=== PATIENT | female | born 1945 | race African-American/Black ===

== ENCOUNTER → 2016-10-23 | Outpatient (CLI) | payer MEDICARE, MEDICAID ==
[~2016-10-23] MED LIST: ALLO300T2 PO; AMBR5TAB3 PO; ATOR80TA76 PO; CLOP75TA33 PO; FURO40TA5 PO; HYDR-4135 PO; LISI-604 PO; LOSA50TA20 PO; NIAC500T2 PO; NIFE90TA43 PO; PARO-41 PO; POTA10TA69 PO
== END | disposition home or self-care (01) ==
LOC: MAMMO 10:25
PROVIDERS: ATTEND Specialist
DX: Z12.31 Encounter for screening mammogram for malignant neoplasm of breast (principal)
CPT/HCPCS: G0202

== ENCOUNTER 2016-11-14 22:25 | Emergency (ER) | payer MEDICARE, MEDICAID ==
[~2016-11-14] VITALS: Ht 149.9 cm; Wt 103.0 kg
[2016-11-15] MEDS ORDERED: LIDOCAINE HCL 1% 20ML VIAL (Pyxis) INJ MC ONE (01:15)
[2016-11-15] MEDS ORDERED: BACITRACIN ZINC OINT UDPKT TOP ONE (01:15)
[2016-11-15] MEDS ORDERED: TETANUS, DIPHTHERIA, PERTUSSIS VAC/PF 0.5ML (>7YR OLD) IM ONE (01:15)
[2016-11-15 03:32] VITALS: BP 150/81
== END 2016-11-15 04:12 | disposition home or self-care (01) ==
LOC: ER 22:25
DX: S01.01XA Laceration without foreign body of scalp, initial encounter (principal); S00.93XA Contusion of unspecified part of head, initial encounter; I10 Essential (primary) hypertension; J44.9 Chronic obstructive pulmonary disease, unspecified; Z95.5 Presence of coronary angioplasty implant and graft; Z98.890 Other specified postprocedural states; Z88.6 Allergy status to analgesic agent; Z79.899 Other long term (current) drug therapy; W06.XXXA Fall from bed, initial encounter; Y93.89 Activity, other specified; Y92.89 Other specified places as the place of occurrence of the external cause; Y99.8 Other external cause status
CPT/HCPCS: 12001; 70450; 90471; 90715; 99284; J3490

== ENCOUNTER → 2017-11-18 | Outpatient (CLI) | payer MEDICARE, MEDICAID ==
[~2017-11-18] MED LIST changes: +ATOR-2 PO; -ATOR80TA76 PO; +POTA10TA11 PO; -POTA10TA69 PO
== END | disposition home or self-care (01) ==
LOC: MAMMO 10:59
PROVIDERS: ATTEND Specialist
DX: Z12.31 Encounter for screening mammogram for malignant neoplasm of breast (principal)
CPT/HCPCS: 77067

== ENCOUNTER → 2018-11-11 | Outpatient (CLI) | payer MEDICARE, MEDICAID ==
[~2018-11-11] MED LIST changes: +APIX5TAB MT; +ASPI-1158 MT; +EZET10TA26 MT; +MACI10TA2 MT; +NEBI5TAB3 MT; +OLME40TA18 MT; +PARO-41 MT; +POTA20TA82 MT
== END | disposition home or self-care (01) ==
LOC: RAD 12:52
PROVIDERS: ATTEND Specialist
DX: R06.02 Shortness of breath (principal)
CPT/HCPCS: 71046

== ENCOUNTER 2018-12-08 15:45 | Inpatient (IN) | payer MEDICARE, MEDICAID ==
[~2018-12-08] VITALS: Ht 152.4 cm; Wt 96.9 kg
[~2018-12-08 15:45] MED LIST changes: -APIX5TAB MT; -ASPI-1158 MT; -EZET10TA26 MT; -MACI10TA2 MT; -NEBI5TAB3 MT; -OLME40TA18 MT; -PARO-41 MT; -POTA20TA82 MT
[2018-12-08] MEDS ORDERED: ASPIRIN 81MG TABLET PO ONE (16:45)
[2018-12-08 17:09] LABS: BASOPHILS % 0.5 % (0.0-2.0); EOSINOPHILS % 1.4 % (0.0-5.0); HEMATOCRIT. 35.2 % (36.0-48.0); HEMOGLOBIN. 11.5 g/dL (12.0-16.0); LYMPHOCYTES % 7.4 % (20.0-50.0); MEAN CORPUSCULAR HEMOGLOBIN 30.4 pg (28.0-32.0); MEAN CORPUSCULAR VOLUME 93.3 fL (81.0-99.0); MEAN PLATELET VOLUME 8.6 fl (7.4-10.4); NEUTROPHILS % 82.7 % (40.0-76.0); PLATELET 153 x1000/uL (130-400); RED BLOOD CELL COUNT 3.78 mill/uL (4.2-5.4); RED CELL DISTRIBUTION WIDTH 16.6 % (11.6-14.6)
[2018-12-08 17:13] LABS: CHLORIDE 108 mEq/L (98-107)
[2018-12-08 17:16] LABS: BG BASE EXCESS 1.7 mmol/L (-2.0-2.0); BG CARBOXYHEMOGLOBIN 0.2 % (0.5-1.5); BG DEOXYHEMOGLOBIN 5.6 % (0.0-5.0); BG HCO3 ACT 27.3 mmol/L (22.0-26.0); BG METHEMOGLOBIN 0.1 % (0.0-1.5); BG OXYGEN SATURATION 94.4 % (92.0-98.5); BG OXYHEMOGLOBIN 94.1 % (94.0-97.0); BG PCO2 46.7 mmHg (35.0-45.0); BG PH 7.384 (7.350-7.450); BG SAMPLE SITE RIGHT RADIAL; BG TOTAL HEMOGLOBIN 12.7 g/dL (12.0-18.0); BG VENT MODE NASAL CANNULA
[2018-12-08] MEDS ORDERED: FUROSEMIDE 40MG/4ML VIAL IVP ONE (22:00)
[2018-12-08] MEDS ORDERED: MAGNESIUM/ALUMINUM HYDROXIDE/SIMETHICONE 30ML UDC PO PRN (22:45)
[2018-12-08] MEDS ORDERED: LORAZEPAM 2MG/ML CPJ IV PRN (22:45)
[2018-12-08] MEDS ORDERED: GUAIFENESIN 200MG/10ML SUGAR FREE UDC PO PRN (22:45)
[2018-12-08] MEDS ORDERED: IPRATROPIUM/ALBUTEROL 0.5-3(2.5)MG/3ML NEB INH PRN (22:45)
[2018-12-08] MEDS ORDERED: DIPHENHYDRAMINE 50MG/ML VIAL IV PRN (22:45)
[2018-12-08] MEDS ORDERED: NA PHOS,M-B/NA PHOS,DI-BA ENEMA 118ML PR PRN (22:45)
[2018-12-08] MEDS ORDERED: ONDANSETRON HCL 4MG/2ML INJ IV PRN (22:45)
[2018-12-08] MEDS ORDERED: DOCUSATE SODIUM 100MG CAPSULE PO PRN (22:45)
[2018-12-08 23:33] LABS: CHLORIDE 108 mEq/L (98-107)
[2018-12-09] VITALS (7 sets, daily range): BP systolic 108–153; BP diastolic 45–63
[2018-12-09] MEDS ORDERED: POTA20TA82 MT (03:28)
[2018-12-09] MEDS ORDERED: APIX5TAB MT (03:28)
[2018-12-09] MEDS ORDERED: NEBI5TAB3 MT (03:29)
[2018-12-09] MEDS ORDERED: ASPI-1158 MT (03:29)
[2018-12-09] MEDS ORDERED: PARO-41 MT (03:30)
[2018-12-09] MEDS ORDERED: EZET10TA26 MT (03:30)
[2018-12-09] MEDS ORDERED: OLME40TA18 MT (03:31)
[2018-12-09] MEDS ORDERED: MACI10TA2 MT (03:32)
[2018-12-09 06:23] LABS: BASOPHILS % 0.5 % (0.0-2.0); EOSINOPHILS % 4.7 % (0.0-5.0); HEMATOCRIT. 33.9 % (36.0-48.0); LYMPHOCYTES % 10.2 % (20.0-50.0); MEAN CORPUSCULAR HEMOGLOBIN 30.6 pg (28.0-32.0); MONOCYTES % 11.7 % (2.0-8.0); NEUTROPHILS % 72.9 % (40.0-76.0); PLATELET 143 x1000/uL (130-400); RED BLOOD CELL COUNT 3.61 mill/uL (4.2-5.4); RED CELL DISTRIBUTION WIDTH 16.4 % (11.6-14.6)
[2018-12-09 06:29] LABS: CHLORIDE 111 mEq/L (98-107)
[2018-12-09 06:41] LABS: HDL CHOLESTEROL 62 mg/dL (40-59)
[2018-12-09 06:42] LABS: LDL CHOLESTEROL 41 mg/dL (5-100)
[2018-12-09] MEDS ORDERED: ENOXAPARIN 30MG/0.3ML SYR SUBCUT SCH (09:00)
[2018-12-09] MEDS ORDERED: FUROSEMIDE 40MG/4ML VIAL IV SCH (09:00)
[2018-12-09] MEDS: ASPIRIN 81MG EC TABLET PO SCH (09:01)
[2018-12-09] MEDS: HYDRALAZINE HCL 25MG TABLET PO SCH ×2 (14:00→22:00)
[2018-12-09 16:23] LABS: INR 1.1; PROTHROMBIN TIME 11.6 sec (9.6-11.0)
[2018-12-09] MEDS: OPSUMIT 10 MG PO SCH (17:43)
[2018-12-09] MEDS: IPRATROPIUM/ALBUTEROL 0.5-3(2.5)MG/3ML NEB HHN SCH (20:28)
[2018-12-10] VITALS (13 sets, daily range): BP systolic 84–145; BP diastolic 41–74
[2018-12-10] MEDS: IPRATROPIUM/ALBUTEROL 0.5-3(2.5)MG/3ML NEB HHN SCH ×4 (01:57→21:13)
[2018-12-10] MEDS: HYDRALAZINE HCL 25MG TABLET PO SCH ×3 (06:00→22:07)
[2018-12-10 06:29] LABS: BASOPHILS % 0.4 % (0.0-2.0); EOSINOPHILS % 4.7 % (0.0-5.0); HEMATOCRIT. 36.1 % (36.0-48.0); HEMOGLOBIN. 11.6 g/dL (12.0-16.0); MEAN CORPUSCULAR VOLUME 93.3 fL (81.0-99.0); MONOCYTES % 10.1 % (2.0-8.0); NEUTROPHILS % 71.8 % (40.0-76.0); PLATELET 141 x1000/uL (130-400); RED BLOOD CELL COUNT 3.86 mill/uL (4.2-5.4)
[2018-12-10 07:17] LABS: CHLORIDE 109 mEq/L (98-107)
[2018-12-10] MEDS ORDERED: IOHEXOL-300 100 ML BOTTLE ONE (08:19)
[2018-12-10] MEDS ORDERED: PROPOFOL 10MG/ML 100ML 100 ML IV ONE (08:31)
[2018-12-10] MEDS ORDERED: FENTANYL CITRATE/PF 50MCG/ML 2ML VIAL ONE ×2 (08:32→09:12)
[2018-12-10] MEDS ORDERED: MIDAZOLAM HCL 2 MG/2 ML VIAL ONE ×2 (08:32→08:56)
[2018-12-10] MEDS ORDERED: LIDOCAINE HCL 1% 20ML VIAL (Pyxis) INJ ONE (08:40)
[2018-12-10] MEDS ORDERED: GENTAMICIN SULF 40MG/ML 2ML VIAL ONE (08:40)
[2018-12-10] MEDS ORDERED: CEFAZOLIN SODIUM 1000MG/VIAL ONE (09:00)
[2018-12-10] MEDS ORDERED: GENTAMICIN/NS IRRIGATION 500 ML IR ONE (09:27)
[2018-12-10] MEDS ORDERED: FUROSEMIDE 20MG/2ML VIAL ONE (10:23)
[2018-12-10] MEDS ORDERED: NIFEDIPINE 10MG CAPSULE ONE (10:31)
[2018-12-10] MEDS ORDERED: MEPERIDINE HCL/PF 25MG/ML CPJ IV PRN (10:45)
[2018-12-10] MEDS ORDERED: MORPHINE SULFATE 4 MG/ML CPJ (NOT FOR IM USE) IV PRN (10:45)
[2018-12-10] MEDS ORDERED: HYDROMORPHONE HCL/PF 2MG/ML CPJ IV PRN (10:45)
[2018-12-10] MEDS ORDERED: FENTANYL CITRATE/PF 50MCG/ML 2ML VIAL IV PRN (10:45)
[2018-12-10] MEDS ORDERED: ONDANSETRON HCL 4MG/2ML INJ IV PRN (10:45)
[2018-12-10] MEDS: OPSUMIT 10 MG PO SCH (13:00)
[2018-12-10] MEDS: NIFEDIPINE XL 60MG TAB PO SCH (14:47)
[2018-12-10] MEDS: CEFAZOLIN 1000MG PREMIX 50 ML IV SCH (18:30)
[2018-12-11] VITALS (14 sets, daily range): BP systolic 96–160; BP diastolic 44–87
[2018-12-11] MEDS: CEFAZOLIN 1000MG PREMIX 50 ML IV SCH (01:24)
[2018-12-11] MEDS: IPRATROPIUM/ALBUTEROL 0.5-3(2.5)MG/3ML NEB HHN SCH ×4 (01:43→20:34)
[2018-12-11 05:19] LABS: BASOPHILS % 0.3 % (0.0-2.0); EOSINOPHILS % 4.3 % (0.0-5.0); HEMOGLOBIN. 11.3 g/dL (12.0-16.0); LYMPHOCYTES % 7.9 % (20.0-50.0); MEAN CORPUSCULAR HEMOGLOBIN 30.4 pg (28.0-32.0); MEAN CORPUSCULAR VOLUME 93.8 fL (81.0-99.0); MEAN PLATELET VOLUME 8.8 fl (7.4-10.4); MONOCYTES % 11.2 % (2.0-8.0); NEUTROPHILS % 76.3 % (40.0-76.0); PLATELET 130 x1000/uL (130-400); RED BLOOD CELL COUNT 3.73 mill/uL (4.2-5.4); RED CELL DISTRIBUTION WIDTH 16.5 % (11.6-14.6)
[2018-12-11 06:31] LABS: CHLORIDE 110 mEq/L (98-107)
[2018-12-11] MEDS: HYDRALAZINE HCL 25MG TABLET PO SCH ×3 (06:39→21:34)
[2018-12-11] MEDS: NIFEDIPINE XL 60MG TAB PO SCH (08:15)
[2018-12-11] MEDS: ASPIRIN 81MG EC TABLET PO SCH (09:22)
[2018-12-11] MEDS: FUROSEMIDE 40MG/4ML VIAL IVP SCH ×2 (10:24→17:53)
[2018-12-11] MEDS: NEBIVOLOL HCL 5 MG TABLET PO SCH (10:24)
[2018-12-11] MEDS: POTASSIUM CHLORIDE 20MEQ TABLET SR PO SCH (10:24)
[2018-12-11] MEDS: APIXABAN 5 MG TABLET PO SCH ×2 (10:24→17:53)
[2018-12-11] MEDS: OPSUMIT 10 MG PO SCH (10:25)
[2018-12-11] MEDS: EZETIMIBE 10MG TABLET PO SCH (13:03)
[2018-12-11] MEDS: ATORVASTATIN CALCIUM 40MG TABLET PO SCH (21:27)
[2018-12-12] VITALS (13 sets, daily range): BP systolic 102–138; BP diastolic 46–87
[2018-12-12] MEDS: TRAMADOL 50MG TABLET PO PRN ×3 (00:10→13:33)
[2018-12-12] MEDS: IPRATROPIUM/ALBUTEROL 0.5-3(2.5)MG/3ML NEB HHN SCH ×4 (02:17→20:33)
[2018-12-12 06:34] LABS: HEMATOCRIT. 37.1 % (36.0-48.0); MEAN CORPUSCULAR HEMOGLOBIN 30.3 pg (28.0-32.0); MEAN CORPUSCULAR VOLUME 93.7 fL (81.0-99.0); MEAN PLATELET VOLUME 8.8 fl (7.4-10.4); PLATELET 129 x1000/uL (130-400); RED BLOOD CELL COUNT 3.96 mill/uL (4.2-5.4); RED CELL DISTRIBUTION WIDTH 16.5 % (11.6-14.6)
[2018-12-12] MEDS: HYDRALAZINE HCL 25MG TABLET PO SCH ×3 (06:42→21:04)
[2018-12-12 07:22] LABS: CHLORIDE 105 mEq/L (98-107)
[2018-12-12] MEDS: FUROSEMIDE 40MG/4ML VIAL IVP SCH ×2 (07:25→16:38)
[2018-12-12] MEDS: OPSUMIT 10 MG PO SCH (08:00)
[2018-12-12] MEDS: ASPIRIN 81MG EC TABLET PO SCH (08:00)
[2018-12-12] MEDS: NIFEDIPINE XL 60MG TAB PO SCH (08:00)
[2018-12-12] MEDS: NEBIVOLOL HCL 5 MG TABLET PO SCH (08:00)
[2018-12-12] MEDS: POTASSIUM CHLORIDE 20MEQ TABLET SR PO SCH (08:00)
[2018-12-12] MEDS: EZETIMIBE 10MG TABLET PO SCH (08:02)
[2018-12-12] MEDS: APIXABAN 5 MG TABLET PO SCH ×2 (08:46→16:38)
[2018-12-12 14:37] LABS: PLATELET ESTIMATE SLIGHTLY DECREASED
[2018-12-12] MEDS: ATORVASTATIN CALCIUM 40MG TABLET PO SCH (21:04)
[2018-12-13] VITALS (12 sets, daily range): BP systolic 85–122; BP diastolic 42–62
[2018-12-13] MEDS: IPRATROPIUM/ALBUTEROL 0.5-3(2.5)MG/3ML NEB HHN SCH ×4 (00:58→21:07)
[2018-12-13] MEDS: FUROSEMIDE 40MG/4ML VIAL IVP SCH ×2 (06:38→17:19)
[2018-12-13] MEDS: HYDRALAZINE HCL 25MG TABLET PO SCH ×3 (06:38→21:15)
[2018-12-13 07:06] LABS: HEMATOCRIT. 32.9 % (36.0-48.0); HEMOGLOBIN. 10.7 g/dL (12.0-16.0); MEAN CORPUSCULAR HEMOGLOBIN 30.4 pg (28.0-32.0); MEAN CORPUSCULAR VOLUME 93.1 fL (81.0-99.0); MEAN PLATELET VOLUME 8.7 fl (7.4-10.4); PLATELET 120 x1000/uL (130-400); RED BLOOD CELL COUNT 3.53 mill/uL (4.2-5.4); RED CELL DISTRIBUTION WIDTH 16.6 % (11.6-14.6)
[2018-12-13 07:43] LABS: CHLORIDE 104 mEq/L (98-107)
[2018-12-13] MEDS: OPSUMIT 10 MG PO SCH (09:44)
[2018-12-13] MEDS: POTASSIUM CHLORIDE 20MEQ TABLET SR PO SCH (09:45)
[2018-12-13] MEDS: NEBIVOLOL HCL 5 MG TABLET PO SCH (09:45)
[2018-12-13] MEDS: ASPIRIN 81MG EC TABLET PO SCH (09:45)
[2018-12-13] MEDS: APIXABAN 5 MG TABLET PO SCH ×2 (09:45→17:19)
[2018-12-13] MEDS: EZETIMIBE 10MG TABLET PO SCH (09:48)
[2018-12-13] MEDS: NIFEDIPINE XL 60MG TAB PO SCH (09:48)
[2018-12-13 15:26] LABS: PLATELET ESTIMATE SLIGHTLY DECREASED
[2018-12-13] MEDS: TRAMADOL 50MG TABLET PO PRN (21:15)
[2018-12-13] MEDS: ATORVASTATIN CALCIUM 40MG TABLET PO SCH (21:15)
[2018-12-14] VITALS (11 sets, daily range): BP systolic 88–109; BP diastolic 45–58
[2018-12-14] MEDS: IPRATROPIUM/ALBUTEROL 0.5-3(2.5)MG/3ML NEB HHN SCH ×3 (01:13→13:31)
[2018-12-14] MEDS: HYDRALAZINE HCL 25MG TABLET PO SCH ×2 (06:00→14:00)
[2018-12-14 06:29] LABS: HEMATOCRIT. 32.4 % (36.0-48.0); HEMOGLOBIN. 10.6 g/dL (12.0-16.0); MEAN CORPUSCULAR HEMOGLOBIN 30.2 pg (28.0-32.0); MEAN CORPUSCULAR VOLUME 92.5 fL (81.0-99.0); PLATELET 104 x1000/uL (130-400); RED CELL DISTRIBUTION WIDTH 16.6 % (11.6-14.6)
[2018-12-14 06:45] LABS: CHLORIDE 101 mEq/L (98-107)
[2018-12-14] MEDS: INDOMETHACIN 50MG CAPSULE PO SCH ×2 (08:00→17:13)
[2018-12-14] MEDS: FUROSEMIDE 40MG/4ML VIAL IVP SCH ×2 (08:47→17:13)
[2018-12-14] MEDS: APIXABAN 5 MG TABLET PO SCH ×2 (08:47→17:13)
[2018-12-14] MEDS: OPSUMIT 10 MG PO SCH (08:48)
[2018-12-14] MEDS: POTASSIUM CHLORIDE 20MEQ TABLET SR PO SCH (08:48)
[2018-12-14] MEDS: EZETIMIBE 10MG TABLET PO SCH (08:48)
[2018-12-14] MEDS: NIFEDIPINE XL 60MG TAB PO SCH (08:53)
[2018-12-14] MEDS: NEBIVOLOL HCL 5 MG TABLET PO SCH (08:54)
[2018-12-14] MEDS: ASPIRIN 81MG EC TABLET PO SCH (09:06)
[2018-12-14 13:38] LABS: PLATELET ESTIMATE SLIGHTLY DECREASED
== END 2018-12-14 19:30 | disposition home health service (06) | DRG 226 ==
LOC: ER 15:50 → EDBEDREQTM 22:02 → EDBEDREQ 22:02 → ENRESERV 23:18 → 5WST 12-09 01:06 → 3WST 12-10 13:00
PROVIDERS: ADMIT Internal Medicine; ATTEND Internal Medicine
PROC: 0JH608Z Insertion of Defibrillator Generator into Chest Subcutaneous Tissue and Fascia, Open Approach (ICD-10-PCS; principal; 2018-12-10)
PROC: 02HK3KZ Insertion of Defibrillator Lead into Right Ventricle, Percutaneous Approach (ICD-10-PCS; 2018-12-10)
PROC: 02H63KZ Insertion of Defibrillator Lead into Right Atrium, Percutaneous Approach (ICD-10-PCS; 2018-12-10)
DX: I49.5 Sick sinus syndrome (principal); J96.21 Acute and chronic respiratory failure with hypoxia; I50.23 Acute on chronic systolic (congestive) heart failure; E46 Unspecified protein-calorie malnutrition; Z68.41 Body mass index [BMI] 40.0-44.9, adult; I27.20 Pulmonary hypertension, unspecified; I11.0 Hypertensive heart disease with heart failure; I48.91 Unspecified atrial fibrillation; J44.9 Chronic obstructive pulmonary disease, unspecified; Z96.653 Presence of artificial knee joint, bilateral; E78.5 Hyperlipidemia, unspecified; I08.0 Rheumatic disorders of both mitral and aortic valves; I25.10 Atherosclerotic heart disease of native coronary artery without angina pectoris; I25.5 Ischemic cardiomyopathy; I73.9 Peripheral vascular disease, unspecified; Z79.01 Long term (current) use of anticoagulants; Z95.1 Presence of aortocoronary bypass graft; Z95.5 Presence of coronary angioplasty implant and graft; Z99.81 Dependence on supplemental oxygen; Z88.6 Allergy status to analgesic agent; Z79.899 Other long term (current) drug therapy
CPT/HCPCS: 33249; 36415; 36600; 71045; 75820; 80048; 80061; 82375; 82805; 83735; 83880; 84439; 84443; 84484; 93005; 93306; 93451; 93640; 94640; 96372; 96374; 97162; 99285; A4565; C1721; C1892; C1893; C1898; C1899; J0690; J1580; J1644; J1650; J1940; J2250; J2704; J3010; J3490; J7050; J7620; Q9967

== ENCOUNTER 2018-12-24 13:04 | Inpatient (IN) | payer MEDICARE, MEDICAID ==
[~2018-12-24] VITALS: Ht 152.4 cm; Wt 88.7 kg
[~2018-12-24 13:04] MED LIST changes: -AMBR5TAB3 PO; +APIX5TAB MT; +ASPI-1158 MT; -CLOP75TA33 PO; +EZET10TA26 MT; -LISI-604 PO; -LOSA50TA20 PO; +MACI10TA2 MT; +NEBI5TAB3 MT; -NIAC500T2 PO; +OLME40TA18 MT; +PARO-41 MT; -POTA10TA11 PO; +POTA20TA82 MT
[2018-12-24] MEDS ORDERED: ASPIRIN 81MG TABLET PO ONE (14:00)
[2018-12-24] MEDS ORDERED: FUROSEMIDE 40MG/4ML VIAL IV ONE (14:00)
[2018-12-24 14:20] LABS: BASOPHILS % 0.5 % (0.0-2.0); EOSINOPHILS % 0.9 % (0.0-5.0); HEMATOCRIT. 31.6 % (36.0-48.0); HEMOGLOBIN. 10.1 g/dL (12.0-16.0); LYMPHOCYTES % 11.3 % (20.0-50.0); MEAN CORPUSCULAR HEMOGLOBIN 29.9 pg (28.0-32.0); MEAN CORPUSCULAR VOLUME 93.5 fL (81.0-99.0); MONOCYTES % 12.7 % (2.0-8.0); NEUTROPHILS % 74.6 % (40.0-76.0); PLATELET 195 x1000/uL (130-400); RED BLOOD CELL COUNT 3.38 mill/uL (4.2-5.4); RED CELL DISTRIBUTION WIDTH 16.8 % (11.6-14.6)
[2018-12-24 14:24] LABS: CHLORIDE 109 mEq/L (98-107)
[2018-12-24] MEDS ORDERED: ALBUTEROL (0.083%) 2.5MG/3ML NEB HHN ONE (15:00)
[2018-12-24 16:00] VITALS: BP 110/49
[2018-12-24] MEDS ORDERED: IPRATROPIUM/ALBUTEROL 0.5-3(2.5)MG/3ML NEB HHN PRN (16:00)
[2018-12-24 17:53] VITALS: BP 110/49
[2018-12-24] MEDS ORDERED: GUAIFENESIN 200MG/10ML SUGAR FREE UDC PO PRN (19:15)
[2018-12-24] MEDS ORDERED: CLONIDINE 0.1MG TABLET PO PRN (19:15)
[2018-12-24] MEDS ORDERED: HYDRALAZINE 20MG/ML VIAL IV PRN (19:15)
[2018-12-24] MEDS ORDERED: IPRATROPIUM/ALBUTEROL 0.5-3(2.5)MG/3ML NEB INH PRN (19:15)
[2018-12-24] MEDS ORDERED: ONDANSETRON HCL 4MG/2ML INJ IV PRN (19:15)
[2018-12-24] MEDS ORDERED: LORAZEPAM 2MG/ML CPJ IV PRN (19:15)
[2018-12-24] MEDS ORDERED: DOCUSATE SODIUM 100MG CAPSULE PO PRN (19:15)
[2018-12-24] MEDS ORDERED: MAGNESIUM/ALUMINUM HYDROXIDE/SIMETHICONE 30ML UDC PO PRN (19:15)
[2018-12-24 20:00] VITALS: BP 110/50
[2018-12-24] MEDS: IPRATROPIUM/ALBUTEROL 0.5-3(2.5)MG/3ML NEB HHN SCH ×2 (21:17→21:25)
[2018-12-24] MEDS: BUDESONIDE 0.5MG/2ML NEB HHN SCH (21:26)
[2018-12-24] MEDS: ATORVASTATIN CALCIUM 40MG TABLET PO SCH (21:34)
[2018-12-24] MEDS: GUAIFENESIN 600MG ER TABLET PO SCH (21:34)
[2018-12-24] MEDS: APIXABAN 5 MG TABLET PO SCH (21:34)
[2018-12-24] MEDS: FUROSEMIDE 40MG/4ML VIAL IVP SCH (21:34)
[2018-12-24] MEDS: SODIUM CHLORIDE 0.9% INJ 3ML FLUSH IVF SCH (21:35)
[2018-12-25] VITALS: BP 126/46
[2018-12-25 00:25] LABS: CREATINE KINASE MB FRACTION 2.9 ng/mL (0.5-3.6)
[2018-12-25] MEDS: IPRATROPIUM/ALBUTEROL 0.5-3(2.5)MG/3ML NEB HHN SCH ×5 (02:00→21:11)
[2018-12-25 04:00] VITALS: BP 114/56
[2018-12-25] MEDS: SODIUM CHLORIDE 0.9% INJ 3ML FLUSH IVF SCH ×3 (06:03→20:56)
[2018-12-25 07:23] LABS: BASOPHILS % 0.5 % (0.0-2.0); EOSINOPHILS % 2.6 % (0.0-5.0); HEMATOCRIT. 31.4 % (36.0-48.0); HEMOGLOBIN. 10.2 g/dL (12.0-16.0); LYMPHOCYTES % 19.4 % (20.0-50.0); MEAN CORPUSCULAR HEMOGLOBIN 30.2 pg (28.0-32.0); MEAN CORPUSCULAR VOLUME 92.9 fL (81.0-99.0); MEAN PLATELET VOLUME 7.9 fl (7.4-10.4); MONOCYTES % 13.7 % (2.0-8.0); NEUTROPHILS % 63.8 % (40.0-76.0); PLATELET 182 x1000/uL (130-400); RED BLOOD CELL COUNT 3.39 mill/uL (4.2-5.4); RED CELL DISTRIBUTION WIDTH 16.6 % (11.6-14.6)
[2018-12-25 07:53] LABS: CHLORIDE 106 mEq/L (98-107)
[2018-12-25 08:00] VITALS: BP 119/61
[2018-12-25 08:04] LABS: CREATINE KINASE 108 IU/L (26-192)
[2018-12-25 08:07] LABS: CREATINE KINASE MB FRACTION 2.6 ng/mL (0.5-3.6)
[2018-12-25] MEDS: BUDESONIDE 0.5MG/2ML NEB HHN SCH ×2 (08:14→21:07)
[2018-12-25] MEDS: ASPIRIN 81MG EC TABLET PO SCH (08:50)
[2018-12-25] MEDS: MACITENTAN PO SCH (08:50)
[2018-12-25] MEDS: GUAIFENESIN 600MG ER TABLET PO SCH ×2 (08:50→20:55)
[2018-12-25] MEDS: OPSUMIT PO SCH (08:50)
[2018-12-25] MEDS: APIXABAN 5 MG TABLET PO SCH ×2 (08:50→17:42)
[2018-12-25] MEDS: EZETIMIBE 10MG TABLET PO SCH (08:50)
[2018-12-25] MEDS: FUROSEMIDE 40MG/4ML VIAL IVP SCH ×2 (08:50→17:42)
[2018-12-25] MEDS ORDERED: POTASSIUM CHLORIDE 20MEQ TABLET SR PO NR (11:00)
[2018-12-25] MEDS: ALLOPURINOL 300 MG TABLET PO SCH (11:22)
[2018-12-25] MEDS: PAROXETINE HCL 10MG TABLET PO SCH (11:22)
[2018-12-25 12:00] VITALS: BP 101/45
[2018-12-25 16:00] VITALS: BP 112/48
[2018-12-25 20:00] VITALS: BP 124/62
[2018-12-25] MEDS: ATORVASTATIN CALCIUM 40MG TABLET PO SCH (20:55)
[2018-12-25] MEDS: DIPHENHYDRAMINE 50MG/ML VIAL IV PRN (21:02)
[2018-12-26] VITALS: BP 119/59
[2018-12-26] MEDS: IPRATROPIUM/ALBUTEROL 0.5-3(2.5)MG/3ML NEB HHN SCH ×6 (01:15→20:18)
[2018-12-26 04:00] VITALS: BP 138/57
[2018-12-26] MEDS: SODIUM CHLORIDE 0.9% INJ 3ML FLUSH IVF SCH ×3 (06:17→22:57)
[2018-12-26 07:00] LABS: BASOPHILS % 0.3 % (0.0-2.0); EOSINOPHILS % 2.6 % (0.0-5.0); HEMOGLOBIN. 10.7 g/dL (12.0-16.0); LYMPHOCYTES % 13.3 % (20.0-50.0); MEAN CORPUSCULAR VOLUME 92.7 fL (81.0-99.0); MEAN PLATELET VOLUME 8.1 fl (7.4-10.4); MONOCYTES % 11.8 % (2.0-8.0); PLATELET 194 x1000/uL (130-400); RED BLOOD CELL COUNT 3.56 mill/uL (4.2-5.4); RED CELL DISTRIBUTION WIDTH 16.6 % (11.6-14.6)
[2018-12-26 07:22] LABS: CHLORIDE 107 mEq/L (98-107)
[2018-12-26 08:00] VITALS: BP 109/45
[2018-12-26] MEDS: BUDESONIDE 0.5MG/2ML NEB HHN SCH (08:05)
[2018-12-26] MEDS: PAROXETINE HCL 10MG TABLET PO SCH (08:27)
[2018-12-26] MEDS: ALLOPURINOL 300 MG TABLET PO SCH (08:27)
[2018-12-26] MEDS: OPSUMIT PO SCH (08:27)
[2018-12-26] MEDS: EZETIMIBE 10MG TABLET PO SCH (08:27)
[2018-12-26] MEDS: MACITENTAN PO SCH (08:27)
[2018-12-26] MEDS: GUAIFENESIN 600MG ER TABLET PO SCH ×2 (08:27→20:59)
[2018-12-26] MEDS: ASPIRIN 81MG EC TABLET PO SCH (08:27)
[2018-12-26] MEDS: APIXABAN 5 MG TABLET PO SCH ×2 (08:27→16:45)
[2018-12-26] MEDS: FUROSEMIDE 40MG/4ML VIAL IVP SCH ×2 (08:28→16:45)
[2018-12-26 12:00] VITALS: BP 124/51
[2018-12-26] MEDS: POTASSIUM CHLORIDE 20MEQ TABLET SR PO SCH (12:51)
[2018-12-26 16:00] VITALS: BP 119/61
[2018-12-26] MEDS ORDERED: ACETAZOLAMIDE SODIUM 500MG/VIAL IV NR (16:00)
[2018-12-26 20:00] VITALS: BP_SYST 106; BP_SYST 113; BP_DIAS 53
[2018-12-26] MEDS: ATORVASTATIN CALCIUM 40MG TABLET PO SCH (20:59)
[2018-12-27] VITALS: BP 113/53
[2018-12-27] MEDS: IPRATROPIUM/ALBUTEROL 0.5-3(2.5)MG/3ML NEB HHN SCH ×5 (00:14→20:26)
[2018-12-27 04:00] VITALS: BP 105/49
[2018-12-27] MEDS: SODIUM CHLORIDE 0.9% INJ 3ML FLUSH IVF SCH ×3 (06:21→21:14)
[2018-12-27 08:00] VITALS: BP 121/53
[2018-12-27] MEDS: ASPIRIN 81MG EC TABLET PO SCH (08:58)
[2018-12-27] MEDS: POTASSIUM CHLORIDE 20MEQ TABLET SR PO SCH (08:58)
[2018-12-27] MEDS: PAROXETINE HCL 10MG TABLET PO SCH (08:58)
[2018-12-27] MEDS: ALLOPURINOL 300 MG TABLET PO SCH (08:58)
[2018-12-27] MEDS: GUAIFENESIN 600MG ER TABLET PO SCH ×2 (08:58→21:12)
[2018-12-27] MEDS: EZETIMIBE 10MG TABLET PO SCH (08:58)
[2018-12-27] MEDS: FUROSEMIDE 40MG/4ML VIAL IVP SCH ×2 (08:58→16:38)
[2018-12-27] MEDS: MACITENTAN PO SCH (08:58)
[2018-12-27] MEDS: APIXABAN 5 MG TABLET PO SCH ×2 (08:58→16:38)
[2018-12-27] MEDS: OPSUMIT PO SCH (08:58)
[2018-12-27] MEDS: BUDESONIDE 0.5MG/2ML NEB HHN SCH ×2 (10:04→20:26)
[2018-12-27 12:00] VITALS: BP 111/52
[2018-12-27 16:00] VITALS: BP 111/52
[2018-12-27 20:00] VITALS: BP 122/49
[2018-12-27] MEDS: ATORVASTATIN CALCIUM 40MG TABLET PO SCH (21:12)
[2018-12-28] VITALS: BP 127/66
[2018-12-28] MEDS: IPRATROPIUM/ALBUTEROL 0.5-3(2.5)MG/3ML NEB HHN SCH ×6 (00:36→21:17)
[2018-12-28 04:00] VITALS: BP 140/62
[2018-12-28] MEDS: SODIUM CHLORIDE 0.9% INJ 3ML FLUSH IVF SCH ×3 (06:28→20:53)
[2018-12-28 08:00] VITALS: BP 130/69
[2018-12-28] MEDS: BUDESONIDE 0.5MG/2ML NEB HHN SCH ×2 (08:42→21:18)
[2018-12-28] MEDS: POTASSIUM CHLORIDE 20MEQ TABLET SR PO SCH (09:33)
[2018-12-28] MEDS: FUROSEMIDE 40MG/4ML VIAL IVP SCH (09:33)
[2018-12-28] MEDS: ASPIRIN 81MG EC TABLET PO SCH (09:33)
[2018-12-28] MEDS: EZETIMIBE 10MG TABLET PO SCH (09:34)
[2018-12-28] MEDS: MACITENTAN PO SCH (09:34)
[2018-12-28] MEDS: OPSUMIT PO SCH (09:34)
[2018-12-28] MEDS: PAROXETINE HCL 10MG TABLET PO SCH (09:34)
[2018-12-28] MEDS: ALLOPURINOL 300 MG TABLET PO SCH (09:34)
[2018-12-28] MEDS: APIXABAN 5 MG TABLET PO SCH ×2 (09:34→17:49)
[2018-12-28] MEDS: GUAIFENESIN 600MG ER TABLET PO SCH ×2 (09:34→20:52)
[2018-12-28 12:00] VITALS: BP 111/47
[2018-12-28 16:00] VITALS: BP 121/58
[2018-12-28 20:00] VITALS: BP 122/35
[2018-12-28] MEDS: ATORVASTATIN CALCIUM 40MG TABLET PO SCH (20:52)
[2018-12-29] VITALS: BP 140/64
[2018-12-29] MEDS: IPRATROPIUM/ALBUTEROL 0.5-3(2.5)MG/3ML NEB HHN SCH ×6 (02:25→20:18)
[2018-12-29 04:00] VITALS: BP 108/41
[2018-12-29] MEDS: SODIUM CHLORIDE 0.9% INJ 3ML FLUSH IVF SCH ×3 (05:19→21:40)
[2018-12-29 06:33] LABS: BASOPHILS % 0.5 % (0.0-2.0); EOSINOPHILS % 6.5 % (0.0-5.0); HEMATOCRIT. 32.4 % (36.0-48.0); HEMOGLOBIN. 10.7 g/dL (12.0-16.0); MEAN CORPUSCULAR HEMOGLOBIN 30.1 pg (28.0-32.0); MEAN CORPUSCULAR VOLUME 91.6 fL (81.0-99.0); MEAN PLATELET VOLUME 8.1 fl (7.4-10.4); MONOCYTES % 12.8 % (2.0-8.0); NEUTROPHILS % 70.2 % (40.0-76.0); PLATELET 220 x1000/uL (130-400); RED BLOOD CELL COUNT 3.54 mill/uL (4.2-5.4); RED CELL DISTRIBUTION WIDTH 16.3 % (11.6-14.6)
[2018-12-29 06:54] LABS: CHLORIDE 109 mEq/L (98-107)
[2018-12-29] MEDS: BUDESONIDE 0.5MG/2ML NEB HHN SCH ×2 (07:42→20:17)
[2018-12-29 08:00] VITALS: BP 144/50
[2018-12-29] MEDS: POTASSIUM CHLORIDE 20MEQ TABLET SR PO SCH (08:39)
[2018-12-29] MEDS: APIXABAN 5 MG TABLET PO SCH ×2 (08:40→17:57)
[2018-12-29] MEDS: ASPIRIN 81MG EC TABLET PO SCH (08:40)
[2018-12-29] MEDS: PAROXETINE HCL 10MG TABLET PO SCH (08:40)
[2018-12-29] MEDS: GUAIFENESIN 600MG ER TABLET PO SCH ×2 (08:40→21:40)
[2018-12-29] MEDS: FUROSEMIDE 40MG/4ML VIAL IVP SCH (08:40)
[2018-12-29] MEDS: ALLOPURINOL 300 MG TABLET PO SCH (08:40)
[2018-12-29] MEDS: EZETIMIBE 10MG TABLET PO SCH (08:40)
[2018-12-29] MEDS: MACITENTAN PO SCH (08:45)
[2018-12-29] MEDS: OPSUMIT PO SCH (08:45)
[2018-12-29 12:00] VITALS: BP 106/51
[2018-12-29 16:00] VITALS: BP 129/72
[2018-12-29 20:00] VITALS: BP 127/58
[2018-12-29] MEDS: ATORVASTATIN CALCIUM 40MG TABLET PO SCH (21:40)
[2018-12-29] MEDS: DIPHENHYDRAMINE 50MG/ML VIAL IV PRN (23:35)
[2018-12-30] VITALS: BP 120/49
[2018-12-30] MEDS: IPRATROPIUM/ALBUTEROL 0.5-3(2.5)MG/3ML NEB HHN SCH ×5 (00:29→16:59)
[2018-12-30 04:00] VITALS: BP 129/60
[2018-12-30] MEDS: SODIUM CHLORIDE 0.9% INJ 3ML FLUSH IVF SCH ×2 (06:12→17:53)
[2018-12-30 08:00] VITALS: BP 114/65
[2018-12-30] MEDS: BUDESONIDE 0.5MG/2ML NEB HHN SCH (09:07)
[2018-12-30] MEDS: GUAIFENESIN 600MG ER TABLET PO SCH (09:22)
[2018-12-30] MEDS: POTASSIUM CHLORIDE 20MEQ TABLET SR PO SCH (09:22)
[2018-12-30] MEDS: MACITENTAN PO SCH (09:23)
[2018-12-30] MEDS: EZETIMIBE 10MG TABLET PO SCH (09:23)
[2018-12-30] MEDS: ASPIRIN 81MG EC TABLET PO SCH (09:23)
[2018-12-30] MEDS: PAROXETINE HCL 10MG TABLET PO SCH (09:23)
[2018-12-30] MEDS: FUROSEMIDE 40MG/4ML VIAL IVP SCH (09:23)
[2018-12-30] MEDS: APIXABAN 5 MG TABLET PO SCH ×2 (09:23→17:52)
[2018-12-30] MEDS: ALLOPURINOL 300 MG TABLET PO SCH (09:23)
[2018-12-30] MEDS: OPSUMIT PO SCH (09:23)
[2018-12-30 12:00] VITALS: BP 114/62
[2018-12-30 14:35] VITALS: BP 114/62
[2018-12-30 16:00] VITALS: BP 125/58
== END 2018-12-30 18:35 | disposition home or self-care (01) | DRG 291 ==
LOC: ER 13:04 → EDBEDREQ 14:13 → 5WST 14:58 → EDBEDREQ 15:03 → ENRESERV 15:33
PROVIDERS: ADMIT Internal Medicine; ATTEND Internal Medicine
DX: I11.0 Hypertensive heart disease with heart failure (principal); J96.00 Acute respiratory failure, unspecified whether with hypoxia or hypercapnia; J96.20 Acute and chronic respiratory failure, unspecified whether with hypoxia or hypercapnia; E46 Unspecified protein-calorie malnutrition; J44.1 Chronic obstructive pulmonary disease with (acute) exacerbation; I49.5 Sick sinus syndrome; I27.20 Pulmonary hypertension, unspecified; E78.5 Hyperlipidemia, unspecified; H91.90 Unspecified hearing loss, unspecified ear; I25.10 Atherosclerotic heart disease of native coronary artery without angina pectoris; I25.5 Ischemic cardiomyopathy; I35.0 Nonrheumatic aortic (valve) stenosis; Z96.653 Presence of artificial knee joint, bilateral; I50.43 Acute on chronic combined systolic (congestive) and diastolic (congestive) heart failure; I48.2 Chronic atrial fibrillation; Z79.01 Long term (current) use of anticoagulants; Z79.899 Other long term (current) drug therapy; Z95.810 Presence of automatic (implantable) cardiac defibrillator; Z99.81 Dependence on supplemental oxygen; Z95.1 Presence of aortocoronary bypass graft; Z95.5 Presence of coronary angioplasty implant and graft; Z88.8 Allergy status to other drugs, medicaments and biological substances; Z79.82 Long term (current) use of aspirin; Z88.5 Allergy status to narcotic agent; Z68.32 Body mass index [BMI] 32.0-32.9, adult
CPT/HCPCS: 36415; 71045; 80048; 82550; 82553; 82962; 83735; 83880; 84484; 93005; 93306; 94640; 97161; 99291; A6261; C1893; J1120; J1200; J1940; J7611; J7620; J7626

== ENCOUNTER 2019-02-08 12:35 | Inpatient (IN) | payer MEDICARE, MEDICAID ==
[~2019-02-08] VITALS: Ht 152.4 cm; Wt 95.3 kg
[2019-02-08] MEDS ORDERED: ASPIRIN 81MG TABLET PO ONE (14:00)
[2019-02-08] MEDS ORDERED: NITROGLYCERIN OINT 1GM/INCH UDPKT TD ONE (14:00)
[2019-02-08] MEDS ORDERED: FUROSEMIDE 40MG/4ML VIAL IV ONE (14:00)
[2019-02-08 14:05] LABS: HEMATOCRIT. 32.3 % (36.0-48.0); HEMOGLOBIN. 10.6 g/dL (12.0-16.0); MEAN CORPUSCULAR HEMOGLOBIN 30.9 pg (28.0-32.0); MEAN PLATELET VOLUME 8.7 fl (7.4-10.4); PLATELET 135 x1000/uL (130-400); RED BLOOD CELL COUNT 3.44 mill/uL (4.2-5.4); RED CELL DISTRIBUTION WIDTH 18.7 % (11.6-14.6)
[2019-02-08 14:09] LABS: CHLORIDE 108 mEq/L (98-107)
[2019-02-08 14:12] LABS: INR 1.2; PARTIAL THROMBOPLASTIN TIME 32.3 sec (23.4-31.0); PROTHROMBIN TIME 12.1 sec (9.6-11.0)
[2019-02-08 14:22] LABS: PLATELET ESTIMATE NORMAL
[2019-02-08] MEDS ORDERED: FUROSEMIDE 40MG/4ML VIAL IVP SCH (17:00)
[2019-02-08] MEDS ORDERED: APIXABAN 5 MG TABLET PO SCH (17:00)
[2019-02-08] MEDS ORDERED: FUROSEMIDE 40MG/4ML VIAL IVP NR (17:15)
[2019-02-08] MEDS ORDERED: APIXABAN 5 MG TABLET PO NR (18:00)
[2019-02-08 21:30] VITALS: BP 138/67
[2019-02-08 22:36] VITALS: BP 138/67
[2019-02-08] MEDS ORDERED: PNEUMOCOCCAL 23-VAL P-SAC VAC 0.5 ML IM ONE (23:00)
[2019-02-08] MEDS: ATORVASTATIN CALCIUM 20MG TABLET PO SCH (23:09)
[2019-02-08] MEDS: HYDRALAZINE HCL 50MG TABLET PO SCH (23:09)
[2019-02-08] MEDS ORDERED: AMOX1TAB16 PO (23:55)
[2019-02-08] MEDS ORDERED: TRAM50TA3 PO (23:55)
[2019-02-09] VITALS: BP 113/58
[2019-02-09 04:00] VITALS: BP 98/50
[2019-02-09] MEDS ORDERED: PNEUMOCOCCAL 23-VAL P-SAC VAC 0.5 ML IM ONE (06:00)
[2019-02-09] MEDS: HYDRALAZINE HCL 50MG TABLET PO SCH ×3 (06:25→21:58)
[2019-02-09 06:58] LABS: CHLORIDE 108 mEq/L (98-107)
[2019-02-09 07:01] LABS: BASOPHILS % 0.5 % (0.0-2.0); EOSINOPHILS % 4.6 % (0.0-5.0); HEMATOCRIT. 31.6 % (36.0-48.0); HEMOGLOBIN. 10.4 g/dL (12.0-16.0); LYMPHOCYTES % 8.8 % (20.0-50.0); MEAN CORPUSCULAR HEMOGLOBIN 31.1 pg (28.0-32.0); MEAN PLATELET VOLUME 8.9 fl (7.4-10.4); NEUTROPHILS % 75.1 % (40.0-76.0); PLATELET 122 x1000/uL (130-400); RED BLOOD CELL COUNT 3.36 mill/uL (4.2-5.4); RED CELL DISTRIBUTION WIDTH 18.8 % (11.6-14.6)
[2019-02-09] MEDS ORDERED: FUROSEMIDE 40MG/4ML VIAL IVP SCH (07:15)
[2019-02-09 08:00] VITALS: BP 120/53
[2019-02-09] MEDS: APIXABAN 5 MG TABLET PO SCH ×2 (08:56→17:45)
[2019-02-09] MEDS: POTASSIUM CHLORIDE 20MEQ TABLET SR PO SCH ×2 (08:56→08:57)
[2019-02-09] MEDS: EZETIMIBE 10MG TABLET PO SCH (08:56)
[2019-02-09] MEDS: NEBIVOLOL HCL 5 MG TABLET PO SCH (08:56)
[2019-02-09] MEDS: ASPIRIN 81MG EC TABLET PO SCH (08:56)
[2019-02-09 12:00] VITALS: BP 108/57
[2019-02-09 16:00] VITALS: BP 102/40
[2019-02-09] MEDS: FUROSEMIDE 100MG/10ML VIAL IVP SCH (17:45)
[2019-02-09] MEDS: PAROXETINE HCL 10MG TABLET PO SCH (17:45)
[2019-02-09 20:45] VITALS: BP 125/55
[2019-02-09] MEDS: AMOXICILLIN/POTASSIUM CLAVULANATE 875/125MG TAB PO SCH (21:54)
[2019-02-09] MEDS: ATORVASTATIN CALCIUM 20MG TABLET PO SCH (21:54)
[2019-02-09] MEDS: ALLOPURINOL 300 MG TABLET PO SCH (21:54)
[2019-02-10] VITALS: BP 115/57
[2019-02-10 04:00] VITALS: BP 114/49
[2019-02-10] MEDS: HYDRALAZINE HCL 50MG TABLET PO SCH ×3 (05:19→21:01)
[2019-02-10 06:29] LABS: BASOPHILS % 0.5 % (0.0-2.0); EOSINOPHILS % 4.5 % (0.0-5.0); HEMOGLOBIN. 9.8 g/dL (12.0-16.0); LYMPHOCYTES % 8.5 % (20.0-50.0); MEAN CORPUSCULAR HEMOGLOBIN 30.7 pg (28.0-32.0); MEAN CORPUSCULAR VOLUME 93.8 fL (81.0-99.0); MEAN PLATELET VOLUME 8.8 fl (7.4-10.4); MONOCYTES % 12.6 % (2.0-8.0); NEUTROPHILS % 73.9 % (40.0-76.0); PLATELET 124 x1000/uL (130-400); RED CELL DISTRIBUTION WIDTH 18.5 % (11.6-14.6)
[2019-02-10 06:55] LABS: CHLORIDE 107 mEq/L (98-107)
[2019-02-10 09:00] VITALS: BP 106/41
[2019-02-10] MEDS: NEBIVOLOL HCL 5 MG TABLET PO SCH (09:00)
[2019-02-10] MEDS: POTASSIUM CHLORIDE 20MEQ TABLET SR PO SCH (09:57)
[2019-02-10] MEDS: PAROXETINE HCL 10MG TABLET PO SCH (09:58)
[2019-02-10] MEDS: ASPIRIN 81MG EC TABLET PO SCH (09:58)
[2019-02-10] MEDS: FUROSEMIDE 100MG/10ML VIAL IVP SCH (10:00)
[2019-02-10] MEDS: EZETIMIBE 10MG TABLET PO SCH (10:07)
[2019-02-10] MEDS: APIXABAN 5 MG TABLET PO SCH ×2 (10:07→17:13)
[2019-02-10 12:00] VITALS: BP 139/61
[2019-02-10] MEDS: AMOXICILLIN/POTASSIUM CLAVULANATE 875/125MG TAB PO SCH ×2 (14:42→21:03)
[2019-02-10 16:00] VITALS: BP 113/55
[2019-02-10] MEDS ORDERED: CLOP75TA33 PO (16:30)
[2019-02-10] MEDS ORDERED: FLUT1AER IH (16:32)
[2019-02-10] MEDS: MACITENTAN 10 MG PO SCH (18:50)
[2019-02-10 20:00] VITALS: BP 107/71
[2019-02-10] MEDS: ATORVASTATIN CALCIUM 20MG TABLET PO SCH (21:03)
[2019-02-10] MEDS: ALLOPURINOL 300 MG TABLET PO SCH (21:03)
[2019-02-11] VITALS: BP 109/71
[2019-02-11 04:00] VITALS: BP 126/51
[2019-02-11 06:02] LABS: BASOPHILS % 0.4 % (0.0-2.0); EOSINOPHILS % 6.2 % (0.0-5.0); HEMATOCRIT. 32.6 % (36.0-48.0); HEMOGLOBIN. 10.8 g/dL (12.0-16.0); LYMPHOCYTES % 10.3 % (20.0-50.0); MEAN CORPUSCULAR VOLUME 94.1 fL (81.0-99.0); MEAN PLATELET VOLUME 8.9 fl (7.4-10.4); MONOCYTES % 12.7 % (2.0-8.0); NEUTROPHILS % 70.4 % (40.0-76.0); PLATELET 123 x1000/uL (130-400); RED BLOOD CELL COUNT 3.47 mill/uL (4.2-5.4); RED CELL DISTRIBUTION WIDTH 18.8 % (11.6-14.6)
[2019-02-11 06:06] LABS: CHLORIDE 106 mEq/L (98-107)
[2019-02-11] MEDS: HYDRALAZINE HCL 50MG TABLET PO SCH ×3 (06:36→21:48)
[2019-02-11 08:00] VITALS: BP 133/64
[2019-02-11] MEDS ORDERED: FUROSEMIDE 40MG/4ML VIAL IVP SCH (09:00)
[2019-02-11] MEDS: AMOXICILLIN/POTASSIUM CLAVULANATE 875/125MG TAB PO SCH ×2 (09:38→20:38)
[2019-02-11] MEDS: APIXABAN 5 MG TABLET PO SCH ×2 (09:38→17:07)
[2019-02-11] MEDS: MACITENTAN 10 MG PO SCH (09:38)
[2019-02-11] MEDS: EZETIMIBE 10MG TABLET PO SCH (09:38)
[2019-02-11] MEDS: ASPIRIN 81MG EC TABLET PO SCH (09:38)
[2019-02-11] MEDS: PAROXETINE HCL 10MG TABLET PO SCH (09:39)
[2019-02-11] MEDS: POTASSIUM CHLORIDE 20MEQ TABLET SR PO SCH (09:39)
[2019-02-11] MEDS: NEBIVOLOL HCL 5 MG TABLET PO SCH (09:49)
[2019-02-11 12:00] VITALS: BP_SYST 109; BP_SYST 2; BP_DIAS 51
[2019-02-11 16:00] VITALS: BP 116/50
[2019-02-11] MEDS: FUROSEMIDE 40MG/4ML VIAL IVP SCH (17:07)
[2019-02-11 20:00] VITALS: BP_SYST 105; BP_SYST 108; BP_SYST 110; BP_DIAS 51; BP_DIAS 52; BP_DIAS 54
[2019-02-11] MEDS: ALLOPURINOL 300 MG TABLET PO SCH (20:38)
[2019-02-11] MEDS: ATORVASTATIN CALCIUM 20MG TABLET PO SCH (20:38)
[2019-02-12] VITALS (7 sets, daily range): BP systolic 100–138; BP diastolic 36–73
[2019-02-12] MEDS: HYDRALAZINE HCL 50MG TABLET PO SCH ×3 (05:55→22:00)
[2019-02-12 06:17] LABS: CHLORIDE 108 mEq/L (98-107)
[2019-02-12 06:33] LABS: BASOPHILS % 0.5 % (0.0-2.0); EOSINOPHILS % 5.5 % (0.0-5.0); HEMATOCRIT. 29.8 % (36.0-48.0); HEMOGLOBIN. 9.9 g/dL (12.0-16.0); LYMPHOCYTES % 10.4 % (20.0-50.0); MEAN CORPUSCULAR VOLUME 93.4 fL (81.0-99.0); MEAN PLATELET VOLUME 8.9 fl (7.4-10.4); NEUTROPHILS % 71.6 % (40.0-76.0); PLATELET 116 x1000/uL (130-400); RED BLOOD CELL COUNT 3.19 mill/uL (4.2-5.4); RED CELL DISTRIBUTION WIDTH 18.3 % (11.6-14.6)
[2019-02-12] MEDS: FUROSEMIDE 40MG/4ML VIAL IVP SCH (07:15)
[2019-02-12] MEDS: PAROXETINE HCL 10MG TABLET PO SCH (09:00)
[2019-02-12] MEDS: APIXABAN 5 MG TABLET PO SCH ×2 (09:00→16:51)
[2019-02-12] MEDS: AMOXICILLIN/POTASSIUM CLAVULANATE 875/125MG TAB PO SCH ×2 (09:00→20:34)
[2019-02-12] MEDS: NEBIVOLOL HCL 5 MG TABLET PO SCH (09:01)
[2019-02-12] MEDS: ASPIRIN 81MG EC TABLET PO SCH (09:01)
[2019-02-12] MEDS: EZETIMIBE 10MG TABLET PO SCH (09:01)
[2019-02-12] MEDS: POTASSIUM CHLORIDE 20MEQ TABLET SR PO SCH (09:01)
[2019-02-12] MEDS: MACITENTAN 10 MG PO SCH (09:02)
[2019-02-12] MEDS ORDERED: POTASSIUM CHLORIDE 20MEQ TABLET SR PO SCH (11:30)
[2019-02-12] MEDS: FUROSEMIDE 40MG TABLET PO SCH (12:03)
[2019-02-12] MEDS: ATORVASTATIN CALCIUM 20MG TABLET PO SCH (20:34)
[2019-02-12] MEDS: ALLOPURINOL 300 MG TABLET PO SCH (20:35)
[2019-02-13] VITALS: BP 124/57
[2019-02-13 04:00] VITALS: BP 109/50
[2019-02-13] MEDS: HYDRALAZINE HCL 50MG TABLET PO SCH (06:00)
[2019-02-13 06:50] LABS: BASOPHILS % 0.5 % (0.0-2.0); EOSINOPHILS % 6.8 % (0.0-5.0); HEMATOCRIT. 30.7 % (36.0-48.0); HEMOGLOBIN. 10.2 g/dL (12.0-16.0); LYMPHOCYTES % 11.5 % (20.0-50.0); MEAN CORPUSCULAR HEMOGLOBIN 31.2 pg (28.0-32.0); MEAN CORPUSCULAR VOLUME 93.8 fL (81.0-99.0); MEAN PLATELET VOLUME 8.8 fl (7.4-10.4); MONOCYTES % 13.2 % (2.0-8.0); PLATELET 126 x1000/uL (130-400); RED BLOOD CELL COUNT 3.28 mill/uL (4.2-5.4)
[2019-02-13 07:36] LABS: CHLORIDE 106 mEq/L (98-107)
[2019-02-13 08:00] VITALS: BP 136/57
[2019-02-13] MEDS: EZETIMIBE 10MG TABLET PO SCH (08:35)
[2019-02-13] MEDS: PAROXETINE HCL 10MG TABLET PO SCH (08:35)
[2019-02-13] MEDS: NEBIVOLOL HCL 5 MG TABLET PO SCH (08:35)
[2019-02-13] MEDS: AMOXICILLIN/POTASSIUM CLAVULANATE 875/125MG TAB PO SCH (08:35)
[2019-02-13] MEDS: FUROSEMIDE 40MG TABLET PO SCH ×2 (08:35→08:37)
[2019-02-13] MEDS: APIXABAN 5 MG TABLET PO SCH (08:35)
[2019-02-13] MEDS: POTASSIUM CHLORIDE 20MEQ TABLET SR PO SCH ×2 (08:35→08:37)
[2019-02-13] MEDS: ASPIRIN 81MG EC TABLET PO SCH (08:36)
[2019-02-13] MEDS: MACITENTAN 10 MG PO SCH (08:36)
[2019-02-13 09:21] VITALS: BP 136/57
== END 2019-02-13 11:43 | disposition home or self-care (01) | DRG 291 ==
LOC: ER 12:35 → 5WST 16:03 → ENRESERV 20:28 → 8WST 02-09 21:03
PROVIDERS: ADMIT Internal Medicine; ATTEND Internal Medicine
DX: I11.0 Hypertensive heart disease with heart failure (principal); J96.00 Acute respiratory failure, unspecified whether with hypoxia or hypercapnia; I48.1 Persistent atrial fibrillation; I50.43 Acute on chronic combined systolic (congestive) and diastolic (congestive) heart failure; J44.9 Chronic obstructive pulmonary disease, unspecified; I27.21 Secondary pulmonary arterial hypertension; I25.10 Atherosclerotic heart disease of native coronary artery without angina pectoris; D64.9 Anemia, unspecified; E87.6 Hypokalemia; E78.5 Hyperlipidemia, unspecified; I25.5 Ischemic cardiomyopathy; Z96.653 Presence of artificial knee joint, bilateral; I49.5 Sick sinus syndrome; I36.1 Nonrheumatic tricuspid (valve) insufficiency; Z60.2 Problems related to living alone; Z79.02 Long term (current) use of antithrombotics/antiplatelets; Z79.51 Long term (current) use of inhaled steroids; Z79.82 Long term (current) use of aspirin; Z79.01 Long term (current) use of anticoagulants; Z79.899 Other long term (current) drug therapy; Z87.891 Personal history of nicotine dependence; Z95.1 Presence of aortocoronary bypass graft; Z95.5 Presence of coronary angioplasty implant and graft; Z95.810 Presence of automatic (implantable) cardiac defibrillator; Z99.81 Dependence on supplemental oxygen; Z88.8 Allergy status to other drugs, medicaments and biological substances
CPT/HCPCS: 36415; 71045; 80048; 83735; 83880; 84484; 85379; 90732; 93005; 96374; 97116; 97162; 99285; C1893; J1940

== ENCOUNTER 2019-04-14 09:34 | Inpatient (IN) | payer MEDICARE, OTHER ==
[~2019-04-14] VITALS: Ht 157.5 cm; Wt 90.7 kg
[~2019-04-14 09:34] MED LIST changes: +AMIO100T4 PO; +AMOX1TAB16 MT; -APIX5TAB MT; -ASPI-1158 MT; +FLUT1AER IH; +MACI10TA2 PO; +NIFE30TA83 MT; -NIFE90TA43 PO; -PARO-41 MT
[2019-04-14] MEDS ORDERED: ALBUTEROL (0.083%) 2.5MG/3ML NEB HHN STA (10:20)
[2019-04-14] MEDS ORDERED: IPRATROPIUM BROMIDE (0.02%) 0.5MG/2.5ML NEB HHN STA (10:20)
[2019-04-14] MEDS ORDERED: METHYLPREDNISOLONE SOD SUCC 125 MG/2 ML VIAL IV STA (10:20)
[2019-04-14] MEDS ORDERED: SODIUM CHLORIDE 0.9% 250 ML IV ONE (10:35)
[2019-04-14 10:54] LABS: CHLORIDE 113 mEq/L (98-107)
[2019-04-14 11:00] LABS: HEMATOCRIT. 29.1 % (36.0-48.0); HEMOGLOBIN. 9.5 g/dL (12.0-16.0); MEAN CORPUSCULAR HEMOGLOBIN 32.4 pg (28.0-32.0); MEAN CORPUSCULAR VOLUME 99.1 fL (81.0-99.0); PLATELET 108 x1000/uL (130-400); RED BLOOD CELL COUNT 2.94 mill/uL (4.2-5.4)
[2019-04-14 11:04] LABS: INR 1.1; PROTHROMBIN TIME 11.4 sec (9.6-11.0)
[2019-04-14 11:58] LABS: PLATELET ESTIMATE DECREASED
[2019-04-14] MEDS ORDERED: GUAIFENESIN 200MG/10ML SUGAR FREE UDC PO PRN (12:15)
[2019-04-14] MEDS ORDERED: ONDANSETRON HCL 4MG/2ML INJ IV PRN (12:15)
[2019-04-14] MEDS ORDERED: MAGNESIUM/ALUMINUM HYDROXIDE/SIMETHICONE 30ML UDC PO PRN (12:15)
[2019-04-14] MEDS ORDERED: CLONIDINE 0.1MG TABLET PO PRN (12:15)
[2019-04-14] MEDS ORDERED: HYDRALAZINE 20MG/ML VIAL IV PRN (12:15)
[2019-04-14] MEDS ORDERED: IPRATROPIUM/ALBUTEROL 0.5-3(2.5)MG/3ML NEB INH PRN (12:15)
[2019-04-14] MEDS ORDERED: NA PHOS,M-B/NA PHOS,DI-BA ENEMA 118ML PR PRN (12:15)
[2019-04-14 12:30] VITALS: BP 124/64
[2019-04-14 13:42] VITALS: BP 126/64
[2019-04-14 13:55] VITALS: BP 126/64
[2019-04-14 16:00] VITALS: BP 114/42
[2019-04-14 17:52] LABS: CREATINE KINASE 135 IU/L (26-192)
[2019-04-14 17:53] LABS: CREATINE KINASE MB FRACTION 4.9 ng/mL (0.5-3.6)
[2019-04-14] MEDS: FUROSEMIDE 40MG/4ML VIAL IVP SCH (18:55)
[2019-04-14] MEDS: NEBIVOLOL HCL 5 MG TABLET PO SCH (18:55)
[2019-04-14 20:00] VITALS: BP 95/45
[2019-04-14] MEDS: SODIUM CHLORIDE 0.9% INJ 3ML FLUSH IVF SCH (22:00)
[2019-04-14] MEDS: AMIODARONE HCL 200 MG TABLET PO SCH (22:18)
[2019-04-15] VITALS: BP 105/40
[2019-04-15 00:12] LABS: CREATINE KINASE 149 IU/L (26-192)
[2019-04-15 00:13] LABS: CREATINE KINASE MB FRACTION 4.9 ng/mL (0.5-3.6)
[2019-04-15 04:00] VITALS: BP 108/58
[2019-04-15] MEDS: SODIUM CHLORIDE 0.9% INJ 3ML FLUSH IVF SCH ×3 (06:47→20:36)
[2019-04-15 07:21] LABS: HEMATOCRIT. 28.8 % (36.0-48.0); HEMOGLOBIN. 9.2 g/dL (12.0-16.0); MEAN CORPUSCULAR HEMOGLOBIN 31.7 pg (28.0-32.0); MEAN CORPUSCULAR VOLUME 99.3 fL (81.0-99.0); MEAN PLATELET VOLUME 9.7 fl (7.4-10.4); PLATELET 105 x1000/uL (130-400)
[2019-04-15 07:28] LABS: CHLORIDE 113 mEq/L (98-107)
[2019-04-15] MEDS: FUROSEMIDE 40MG/4ML VIAL IVP SCH ×2 (07:44→12:48)
[2019-04-15 08:33] VITALS: BP 112/40
[2019-04-15] MEDS: IPRATROPIUM/ALBUTEROL 0.5-3(2.5)MG/3ML NEB HHN SCH ×4 (08:57→20:44)
[2019-04-15] MEDS: BUDESONIDE 0.5MG/2ML NEB HHN SCH ×2 (08:58→20:45)
[2019-04-15] MEDS: APIXABAN 5 MG TABLET PO SCH ×2 (09:42→17:27)
[2019-04-15] MEDS: AMIODARONE HCL 200 MG TABLET PO SCH ×2 (09:43→20:36)
[2019-04-15] MEDS: NEBIVOLOL HCL 5 MG TABLET PO SCH (09:44)
[2019-04-15 09:48] LABS: PLATELET ESTIMATE DECREASED
[2019-04-15] MEDS ORDERED: SODIUM POLYSTYRENE SULFONATE 15 G/60 ML BOT PO SCH (10:00)
[2019-04-15 12:49] VITALS: BP 106/40
[2019-04-15 16:00] VITALS: BP 105/55
[2019-04-15 20:00] VITALS: BP 106/46
[2019-04-16] VITALS (8 sets, daily range): BP systolic 98–136; BP diastolic 39–71
[2019-04-16] MEDS: IPRATROPIUM/ALBUTEROL 0.5-3(2.5)MG/3ML NEB HHN SCH ×6 (00:34→21:06)
[2019-04-16] MEDS: SODIUM CHLORIDE 0.9% INJ 3ML FLUSH IVF SCH ×3 (06:01→21:40)
[2019-04-16 07:47] LABS: HEMOGLOBIN. 9.3 g/dL (12.0-16.0); MEAN CORPUSCULAR HEMOGLOBIN 32.1 pg (28.0-32.0); MEAN CORPUSCULAR VOLUME 100.1 fL (81.0-99.0); MEAN PLATELET VOLUME 9.2 fl (7.4-10.4); PLATELET 101 x1000/uL (130-400); RED BLOOD CELL COUNT 2.89 mill/uL (4.2-5.4); RED CELL DISTRIBUTION WIDTH 18.9 % (11.6-14.6)
[2019-04-16] MEDS: BUDESONIDE 0.5MG/2ML NEB HHN SCH ×2 (08:00→21:06)
[2019-04-16] MEDS: NEBIVOLOL HCL 5 MG TABLET PO SCH (08:56)
[2019-04-16] MEDS: AMIODARONE HCL 200 MG TABLET PO SCH ×2 (08:56→20:40)
[2019-04-16] MEDS: FUROSEMIDE 40MG/4ML VIAL IVP SCH ×2 (08:56→17:35)
[2019-04-16] MEDS: APIXABAN 5 MG TABLET PO SCH ×2 (08:56→17:35)
[2019-04-16 12:13] LABS: PLATELET ESTIMATE DECREASED
[2019-04-16 12:51] LABS: CLARITY URINE CLEAR (CLEAR); COLOR URINE YELLOW (YELLOW); KETONES URINE NEGATIVE (NEGATIVE); LEUKOCYTE ESTERASE URINE 2+ (NEGATIVE); NITRITE URINE NEGATIVE (NEGATIVE); OCCULT BLOOD URINE TRACE (NEGATIVE); PROTEIN URINE 1+ (NEGATIVE); SPECIFIC GRAVITY URINE 1.015 (1.005-1.030); UROBILINOGEN URINE 0.2 E.U./dL (0.2-1.0)
[2019-04-16 15:08] LABS: ANTI-NUCLEAR ANTIBODIES DIRECT Negative (Negative)
[2019-04-16] MEDS: MILRINONE 20MG-DEXT 5% PREMIX 100 ML IV SCH ×3 (15:18→16:36)
[2019-04-16] MEDS: METOLAZONE 2.5MG TABLET PO SCH (17:35)
[2019-04-16] MEDS: LORAZEPAM 2MG/ML CPJ IV PRN (22:46)
[2019-04-17] VITALS (14 sets, daily range): BP systolic 91–134; BP diastolic 39–66
[2019-04-17] MEDS: MILRINONE 20MG-DEXT 5% PREMIX 100 ML IV SCH ×3 (01:01→16:59)
[2019-04-17] MEDS: IPRATROPIUM/ALBUTEROL 0.5-3(2.5)MG/3ML NEB HHN SCH ×6 (01:12→20:33)
[2019-04-17] MEDS: SODIUM CHLORIDE 0.9% INJ 3ML FLUSH IVF SCH ×3 (05:32→21:18)
[2019-04-17] MEDS: BUDESONIDE 0.5MG/2ML NEB HHN SCH ×2 (07:29→12:17)
[2019-04-17 07:30] LABS: HEMATOCRIT. 26.8 % (36.0-48.0); HEMOGLOBIN. 8.8 g/dL (12.0-16.0); MEAN CORPUSCULAR HEMOGLOBIN 32.2 pg (28.0-32.0); MEAN CORPUSCULAR VOLUME 98.4 fL (81.0-99.0); MEAN PLATELET VOLUME 8.8 fl (7.4-10.4); PLATELET 105 x1000/uL (130-400); RED BLOOD CELL COUNT 2.73 mill/uL (4.2-5.4); RED CELL DISTRIBUTION WIDTH 18.6 % (11.6-14.6)
[2019-04-17] MEDS ORDERED: POTASSIUM CHLORIDE 20MEQ TABLET SR PO ONE ×2 (08:15→11:00)
[2019-04-17] MEDS: APIXABAN 5 MG TABLET PO SCH (08:37)
[2019-04-17] MEDS: FUROSEMIDE 40MG/4ML VIAL IVP SCH ×2 (08:37→16:56)
[2019-04-17] MEDS: NEBIVOLOL HCL 5 MG TABLET PO SCH (08:37)
[2019-04-17] MEDS: AMIODARONE HCL 200 MG TABLET PO SCH ×2 (08:38→20:24)
[2019-04-17] MEDS: METOLAZONE 2.5MG TABLET PO SCH ×2 (08:38→16:57)
[2019-04-17] MEDS ORDERED: POTASSIUM CHLORIDE 20MEQ TABLET SR PO SCH ×2 (09:00→13:00)
[2019-04-17 10:06] LABS: COMPLEMENT C3 113 mg/dL (82-167)
[2019-04-17 13:41] LABS: PLATELET ESTIMATE SLIGHTLY DECREASED
[2019-04-18] VITALS (12 sets, daily range): BP systolic 107–150; BP diastolic 46–85
[2019-04-18] MEDS: IPRATROPIUM/ALBUTEROL 0.5-3(2.5)MG/3ML NEB HHN SCH ×6 (00:45→20:55)
[2019-04-18] MEDS: MILRINONE 20MG-DEXT 5% PREMIX 100 ML IV SCH ×3 (01:42→21:52)
[2019-04-18] MEDS: LORAZEPAM 2MG/ML CPJ IV PRN (01:50)
[2019-04-18] MEDS: SODIUM CHLORIDE 0.9% INJ 3ML FLUSH IVF SCH ×4 (05:00→22:00)
[2019-04-18 06:55] LABS: HEMATOCRIT. 27.6 % (36.0-48.0); HEMOGLOBIN. 9.1 g/dL (12.0-16.0); MEAN CORPUSCULAR HEMOGLOBIN 31.9 pg (28.0-32.0); MEAN CORPUSCULAR VOLUME 96.8 fL (81.0-99.0); MEAN PLATELET VOLUME 9.1 fl (7.4-10.4); PLATELET 116 x1000/uL (130-400); RED BLOOD CELL COUNT 2.85 mill/uL (4.2-5.4); RED CELL DISTRIBUTION WIDTH 18.4 % (11.6-14.6)
[2019-04-18 07:27] LABS: PHOSPHORUS 3.3 mg/dL (2.5-4.9)
[2019-04-18] MEDS: FUROSEMIDE 40MG/4ML VIAL IVP SCH ×2 (08:52→17:30)
[2019-04-18] MEDS: METOLAZONE 2.5MG TABLET PO SCH ×2 (08:52→17:30)
[2019-04-18] MEDS: NEBIVOLOL HCL 5 MG TABLET PO SCH (08:53)
[2019-04-18] MEDS: AMIODARONE HCL 200 MG TABLET PO SCH ×2 (08:53→20:28)
[2019-04-18] MEDS ORDERED: POTASSIUM CHLORIDE 20MEQ TABLET SR PO SCH (09:00)
[2019-04-18] MEDS ORDERED: POTASSIUM CHLORIDE 20MEQ/PACKET PO NR (10:45)
[2019-04-18 10:59] LABS: PLATELET ESTIMATE SLIGHTLY DECREASED
[2019-04-18] MEDS: APIXABAN 2.5 MG TABLET PO SCH (17:30)
[2019-04-19] VITALS (13 sets, daily range): BP systolic 100–128; BP diastolic 48–85
[2019-04-19] MEDS: IPRATROPIUM/ALBUTEROL 0.5-3(2.5)MG/3ML NEB HHN SCH ×6 (00:36→20:34)
[2019-04-19] MEDS: MILRINONE 20MG-DEXT 5% PREMIX 100 ML IV SCH ×3 (01:51→16:51)
[2019-04-19] MEDS: SODIUM CHLORIDE 0.9% INJ 3ML FLUSH IVF SCH ×2 (05:09→13:01)
[2019-04-19 07:08] LABS: HEMATOCRIT. 28.4 % (36.0-48.0); HEMOGLOBIN. 9.3 g/dL (12.0-16.0); MEAN CORPUSCULAR HEMOGLOBIN 31.9 pg (28.0-32.0); MEAN CORPUSCULAR VOLUME 97.6 fL (81.0-99.0); MEAN PLATELET VOLUME 9.2 fl (7.4-10.4); PLATELET 113 x1000/uL (130-400); RED BLOOD CELL COUNT 2.91 mill/uL (4.2-5.4); RED CELL DISTRIBUTION WIDTH 18.6 % (11.6-14.6)
[2019-04-19] MEDS: NEBIVOLOL HCL 5 MG TABLET PO SCH (08:33)
[2019-04-19] MEDS: FUROSEMIDE 40MG/4ML VIAL IVP SCH ×2 (08:33→16:51)
[2019-04-19] MEDS: METOLAZONE 2.5MG TABLET PO SCH ×2 (08:34→16:51)
[2019-04-19] MEDS: APIXABAN 2.5 MG TABLET PO SCH ×2 (08:34→16:51)
[2019-04-19] MEDS: AMIODARONE HCL 200 MG TABLET PO SCH ×2 (08:34→20:31)
[2019-04-19] MEDS: POTASSIUM CHLORIDE 20MEQ TABLET SR PO SCH ×3 (08:34→16:51)
[2019-04-19 10:03] LABS: BG BASE EXCESS 13.9 mmol/L (-2.0-2.0); BG DEOXYHEMOGLOBIN 8.1 % (0.0-5.0); BG FRACTION INSPIRED OXYGEN 32; BG HCO3 ACT 40.2 mmol/L (22.0-26.0); BG METHEMOGLOBIN 0.3 % (0.0-1.5); BG OXYGEN SATURATION 91.9 % (92.0-98.5); BG OXYHEMOGLOBIN 91.6 % (94.0-97.0); BG PCO2 59.5 mmHg (35.0-45.0); BG PH 7.448 (7.350-7.450); BG PO2 62.1 mmHg (75.0-100.0); BG SAMPLE SITE LEFT BRACHIAL; BG TOTAL HEMOGLOBIN 11.4 g/dL (12.0-18.0); BG VENT MODE NASAL CANNULA
[2019-04-19 10:48] LABS: PLATELET ESTIMATE SLIGHTLY DECREASED
[2019-04-20] VITALS (12 sets, daily range): BP systolic 97–144; BP diastolic 48–73
[2019-04-20] MEDS: IPRATROPIUM/ALBUTEROL 0.5-3(2.5)MG/3ML NEB HHN SCH ×6 (00:38→20:44)
[2019-04-20] MEDS: DIPHENHYDRAMINE 50MG/ML VIAL IV PRN (01:08)
[2019-04-20] MEDS: MILRINONE 20MG-DEXT 5% PREMIX 100 ML IV SCH ×3 (01:51→18:49)
[2019-04-20] MEDS ORDERED: LORAZEPAM 2MG/ML CPJ IV PRN (02:15)
[2019-04-20] MEDS: SODIUM CHLORIDE 0.9% INJ 3ML FLUSH IVF SCH ×3 (05:14→21:12)
[2019-04-20 06:51] LABS: HEMATOCRIT. 28.8 % (36.0-48.0); HEMOGLOBIN. 9.4 g/dL (12.0-16.0); MEAN CORPUSCULAR HEMOGLOBIN 31.4 pg (28.0-32.0); MEAN CORPUSCULAR VOLUME 95.9 fL (81.0-99.0); MEAN PLATELET VOLUME 8.8 fl (7.4-10.4); PLATELET 110 x1000/uL (130-400)
[2019-04-20 06:54] LABS: CHLORIDE 93 mEq/L (98-107)
[2019-04-20] MEDS: METOLAZONE 2.5MG TABLET PO SCH (08:43)
[2019-04-20] MEDS: AMIODARONE HCL 200 MG TABLET PO SCH ×2 (08:43→21:10)
[2019-04-20] MEDS: DOCUSATE SODIUM 100MG CAPSULE PO PRN (08:43)
[2019-04-20] MEDS: APIXABAN 2.5 MG TABLET PO SCH ×2 (08:43→17:30)
[2019-04-20] MEDS: NEBIVOLOL HCL 5 MG TABLET PO SCH (08:43)
[2019-04-20] MEDS: POTASSIUM CHLORIDE 20MEQ TABLET SR PO SCH ×3 (08:43→17:30)
[2019-04-20] MEDS: FUROSEMIDE 40MG/4ML VIAL IVP SCH (10:08)
[2019-04-20] MEDS ORDERED: POTASSIUM CHLORIDE INJ 40 MEQ in DEXT 5% WATER 250 ML IV NR (10:30)
[2019-04-20 10:41] LABS: PLATELET ESTIMATE SLIGHTLY DECREASED
[2019-04-20] MEDS ORDERED: MAGNESIUM 4 G PREMIX 100 ML IV NR (12:00)
[2019-04-20] MEDS ORDERED: AMIO100T4 PO (18:06)
[2019-04-21] VITALS (14 sets, daily range): BP systolic 112–139; BP diastolic 50–83
[2019-04-21] MEDS: IPRATROPIUM/ALBUTEROL 0.5-3(2.5)MG/3ML NEB HHN SCH ×6 (00:50→20:56)
[2019-04-21] MEDS: NYSTATIN POWDER 15GM TOP SCH ×4 (00:59→18:05)
[2019-04-21] MEDS: MILRINONE 20MG-DEXT 5% PREMIX 100 ML IV SCH ×2 (02:36→12:29)
[2019-04-21] MEDS: DIPHENHYDRAMINE 50MG/ML VIAL IV PRN (03:41)
[2019-04-21] MEDS: SODIUM CHLORIDE 0.9% INJ 3ML FLUSH IVF SCH ×3 (06:00→22:11)
[2019-04-21 06:57] LABS: HEMATOCRIT. 28.2 % (36.0-48.0); HEMOGLOBIN. 9.5 g/dL (12.0-16.0); MEAN CORPUSCULAR HEMOGLOBIN 32.1 pg (28.0-32.0); MEAN CORPUSCULAR VOLUME 95.2 fL (81.0-99.0); PLATELET 114 x1000/uL (130-400); RED BLOOD CELL COUNT 2.96 mill/uL (4.2-5.4); RED CELL DISTRIBUTION WIDTH 17.4 % (11.6-14.6)
[2019-04-21 07:01] LABS: CHLORIDE 91 mEq/L (98-107)
[2019-04-21] MEDS: APIXABAN 2.5 MG TABLET PO SCH ×2 (08:46→18:05)
[2019-04-21] MEDS: FUROSEMIDE 40MG/4ML VIAL IVP SCH (08:46)
[2019-04-21] MEDS: POTASSIUM CHLORIDE 20MEQ TABLET SR PO SCH ×3 (08:46→18:05)
[2019-04-21] MEDS: NEBIVOLOL HCL 5 MG TABLET PO SCH (08:46)
[2019-04-21] MEDS: AMIODARONE HCL 200 MG TABLET PO SCH ×2 (08:46→22:11)
[2019-04-21 10:30] LABS: PLATELET ESTIMATE SLIGHTLY DECREASED
[2019-04-21] MEDS ORDERED: LORAZEPAM 2MG/ML CPJ IV PRN (12:45)
[2019-04-21] MEDS: DOCUSATE SODIUM 100MG CAPSULE PO PRN (22:10)
[2019-04-22] VITALS (10 sets, daily range): BP systolic 98–128; BP diastolic 30–82
[2019-04-22] MEDS: IPRATROPIUM/ALBUTEROL 0.5-3(2.5)MG/3ML NEB HHN SCH ×4 (00:46→11:52)
[2019-04-22] MEDS: SODIUM CHLORIDE 0.9% INJ 3ML FLUSH IVF SCH ×2 (06:00→14:46)
[2019-04-22 08:04] LABS: HEMATOCRIT. 29.8 % (36.0-48.0); HEMOGLOBIN. 9.8 g/dL (12.0-16.0); MEAN CORPUSCULAR HEMOGLOBIN 31.5 pg (28.0-32.0); MEAN CORPUSCULAR VOLUME 96.1 fL (81.0-99.0); PLATELET 115 x1000/uL (130-400); RED BLOOD CELL COUNT 3.11 mill/uL (4.2-5.4); RED CELL DISTRIBUTION WIDTH 17.5 % (11.6-14.6)
[2019-04-22 08:14] LABS: CHLORIDE 92 mEq/L (98-107)
[2019-04-22] MEDS: NEBIVOLOL HCL 5 MG TABLET PO SCH (09:06)
[2019-04-22] MEDS: FUROSEMIDE 40MG/4ML VIAL IVP SCH (09:06)
[2019-04-22] MEDS: POTASSIUM CHLORIDE 20MEQ TABLET SR PO SCH ×2 (09:07→13:22)
[2019-04-22] MEDS: AMIODARONE HCL 200 MG TABLET PO SCH (09:07)
[2019-04-22] MEDS: APIXABAN 2.5 MG TABLET PO SCH (09:07)
[2019-04-22] MEDS: NYSTATIN POWDER 15GM TOP SCH ×2 (09:09→14:46)
[2019-04-22] MEDS ORDERED: NEBIVOLOL HCL 5 MG TABLET PO SCH (10:45)
[2019-04-22] MEDS ORDERED: AMIODARONE HCL 200 MG TABLET PO SCH (10:45)
[2019-04-22] MEDS ORDERED: MACITENTAN 10 MG PO SCH (14:00)
[2019-04-22 17:03] LABS: PLATELET ESTIMATE DECREASED
== END 2019-04-22 15:15 | DRG 291 ==
LOC: ER 09:34 → 6WST 11:37 → EDBEDREQ 11:41 → ENRESERV 11:56 → 3WST 04-16 15:18
PROVIDERS: ADMIT Internal Medicine; ATTEND Internal Medicine
PROC: 02HV33Z Insertion of Infusion Device into Superior Vena Cava, Percutaneous Approach (ICD-10-PCS; principal; 2019-04-16)
PROC: B548ZZA Ultrasonography of Superior Vena Cava, Guidance (ICD-10-PCS; 2019-04-16)
DX: I13.0 Hypertensive heart and chronic kidney disease with heart failure and stage 1 through stage 4 chronic kidney disease, or unspecified chronic kidney disease (principal); J96.00 Acute respiratory failure, unspecified whether with hypoxia or hypercapnia; I50.43 Acute on chronic combined systolic (congestive) and diastolic (congestive) heart failure; N17.0 Acute kidney failure with tubular necrosis; I48.1 Persistent atrial fibrillation; E46 Unspecified protein-calorie malnutrition; E87.3 Alkalosis; D69.6 Thrombocytopenia, unspecified; E78.5 Hyperlipidemia, unspecified; I25.10 Atherosclerotic heart disease of native coronary artery without angina pectoris; J44.9 Chronic obstructive pulmonary disease, unspecified; I25.5 Ischemic cardiomyopathy; N18.9 Chronic kidney disease, unspecified; E66.01 Morbid (severe) obesity due to excess calories; I27.21 Secondary pulmonary arterial hypertension; R26.9 Unspecified abnormalities of gait and mobility; R53.81 Other malaise; R31.9 Hematuria, unspecified; E87.8 Other disorders of electrolyte and fluid balance, not elsewhere classified; R73.9 Hyperglycemia, unspecified; Z96.653 Presence of artificial knee joint, bilateral; E83.42 Hypomagnesemia; E87.6 Hypokalemia; G62.9 Polyneuropathy, unspecified; M75.01 Adhesive capsulitis of right shoulder; M75.02 Adhesive capsulitis of left shoulder; Z79.01 Long term (current) use of anticoagulants; Z79.899 Other long term (current) drug therapy; Z82.49 Family history of ischemic heart disease and other diseases of the circulatory system; Z87.891 Personal history of nicotine dependence; Z95.1 Presence of aortocoronary bypass graft; Z95.5 Presence of coronary angioplasty implant and graft; Z95.810 Presence of automatic (implantable) cardiac defibrillator; Z99.81 Dependence on supplemental oxygen; Z68.36 Body mass index [BMI] 36.0-36.9, adult; Z88.6 Allergy status to analgesic agent; Z88.8 Allergy status to other drugs, medicaments and biological substances
CPT/HCPCS: 36415; 36600; 71045; 76770; 76937; 80048; 80076; 81003; 82375; 82550; 82553; 82805; 83735; 83880; 84100; 84134; 84484; 86038; 86160; 93005; 94640; 97116; 97162; 97166; 97530; 99291; C1725; J1200; J1940; J2060; J2260; J2930; J3475; J3480; J7030; J7060; J7611; J7620; J7626

== ENCOUNTER 2019-06-29 14:52 | Inpatient (IN) | payer MEDICARE, OTHER ==
[~2019-06-29] VITALS: Ht 149.9 cm; Wt 102.1 kg
[~2019-06-29 14:52] MED LIST changes: -ALLO300T2 PO; -AMOX1TAB16 MT; -MACI10TA2 MT; -NIFE30TA83 MT
[2019-06-29] MEDS ORDERED: FUROSEMIDE 40MG/4ML VIAL IV ONE (15:30)
[2019-06-29 16:16] LABS: CHLORIDE 107 mEq/L (98-107)
[2019-06-29 16:17] LABS: HEMATOCRIT. 31.3 % (36.0-48.0); HEMOGLOBIN. 9.8 g/dL (12.0-16.0); MEAN CORPUSCULAR HEMOGLOBIN 30.3 pg (28.0-32.0); MEAN CORPUSCULAR VOLUME 96.6 fL (81.0-99.0); MEAN PLATELET VOLUME 8.7 fl (7.4-10.4); PLATELET 142 x1000/uL (130-400); RED BLOOD CELL COUNT 3.24 mill/uL (4.2-5.4)
[2019-06-29 16:31] LABS: CLARITY URINE CLEAR (CLEAR); COLOR URINE YELLOW (YELLOW); KETONES URINE NEGATIVE (NEGATIVE); LEUKOCYTE ESTERASE URINE 2+ (NEGATIVE); NITRITE URINE NEGATIVE (NEGATIVE); OCCULT BLOOD URINE NEGATIVE (NEGATIVE); PROTEIN URINE 1+ (NEGATIVE); SPECIFIC GRAVITY URINE 1.008 (1.005-1.030); UROBILINOGEN URINE 0.2 E.U./dL (0.2-1.0)
[2019-06-29 16:48] LABS: PLATELET ESTIMATE NORMAL
[2019-06-29] MEDS ORDERED: FUROSEMIDE 40MG/4ML VIAL IVP SCH (17:00)
[2019-06-29] MEDS ORDERED: CEFTRIAXONE 1 G PREMIX 50 ML IV ONE (17:45)
[2019-06-29 20:27] VITALS: BP 148/81
[2019-06-29 21:00] VITALS: BP 148/81
[2019-06-29] MEDS: ENOXAPARIN 100MG/ML SYR SUBCUT SCH (21:03)
[2019-06-29] MEDS: LISINOPRIL 10MG TABLET PO SCH (21:03)
[2019-06-29] MEDS: HYDRALAZINE HCL 50MG TABLET PO SCH (22:00)
[2019-06-29 22:02] VITALS: BP 124/74
[2019-06-29] MEDS ORDERED: IPRATROPIUM/ALBUTEROL 0.5-3(2.5)MG/3ML NEB HHN PRN (22:45)
[2019-06-29] MEDS ORDERED: CLONIDINE 0.2MG TABLET PO PRN (22:45)
[2019-06-29] MEDS ORDERED: HYDROCODONE/ACETAMINOPHEN 5/325MG TABLET PO PRN (22:45)
[2019-06-29] MEDS ORDERED: ACETAMINOPHEN 325MG TABLET PO PRN (22:45)
[2019-06-29 23:36] VITALS: BP 119/55
[2019-06-30] VITALS (60 sets, daily range): BP systolic 81–131; BP diastolic 32–88
[2019-06-30] MEDS: FUROSEMIDE 40MG/4ML VIAL IVP SCH ×2 (03:18→16:24)
[2019-06-30] MEDS: HYDRALAZINE HCL 50MG TABLET PO SCH (05:59)
[2019-06-30 06:34] LABS: INR 1.2; PROTHROMBIN TIME 12.5 sec (9.6-11.0)
[2019-06-30 06:44] LABS: CHLORIDE 108 mEq/L (98-107)
[2019-06-30 06:55] LABS: HEMATOCRIT. 26.3 % (36.0-48.0); HEMOGLOBIN. 8.5 g/dL (12.0-16.0); MEAN CORPUSCULAR HEMOGLOBIN 30.8 pg (28.0-32.0); MEAN CORPUSCULAR VOLUME 95.7 fL (81.0-99.0); MEAN PLATELET VOLUME 8.6 fl (7.4-10.4); PLATELET 116 x1000/uL (130-400); RED BLOOD CELL COUNT 2.75 mill/uL (4.2-5.4); RED CELL DISTRIBUTION WIDTH 19.1 % (11.6-14.6)
[2019-06-30] MEDS: LISINOPRIL 10MG TABLET PO SCH (09:00)
[2019-06-30 09:46] LABS: BG BASE EXCESS 5.6 mmol/L (-2.0-2.0); BG CARBOXYHEMOGLOBIN 0.4 % (0.5-1.5); BG DEOXYHEMOGLOBIN 4.9 % (0.0-5.0); BG FRACTION INSPIRED OXYGEN 36; BG HCO3 ACT 32.4 mmol/L (22.0-26.0); BG METHEMOGLOBIN 0.3 % (0.0-1.5); BG OXYGEN SATURATION 95.1 % (92.0-98.5); BG OXYHEMOGLOBIN 94.4 % (94.0-97.0); BG PCO2 60.5 mmHg (35.0-45.0); BG PH 7.346 (7.350-7.450); BG SAMPLE SITE RIGHT RADIAL; BG VENT MODE NASAL CANNULA
[2019-06-30] MEDS: OMEPRAZOLE 20MG CAPSULE EXTENDED RELEASE PO SCH (10:58)
[2019-06-30] MEDS: ENOXAPARIN 100MG/ML SYR SUBCUT SCH ×2 (10:59→20:14)
[2019-06-30 11:14] LABS: PLATELET ESTIMATE SLIGHTLY DECREASED
[2019-06-30] MEDS: IPRATROPIUM/ALBUTEROL 0.5-3(2.5)MG/3ML NEB HHN SCH ×3 (12:00→20:33)
[2019-06-30] MEDS ORDERED: PNEUMOCOCCAL 23-VAL P-SAC VAC 0.5 ML IM ONE (12:00)
[2019-06-30] MEDS: HYDRALAZINE HCL 25MG TABLET PO SCH ×2 (13:38→21:01)
[2019-06-30] MEDS ORDERED: APIX5TAB PO (18:43)
[2019-06-30] MEDS ORDERED: ALLO300T2 PO (18:43)
[2019-06-30] MEDS: DOPAMINE 400MG/250ML PREMIX 250 ML IV PRN (22:13)
[2019-07-01] VITALS (101 sets, daily range): BP systolic 68–144; BP diastolic 24–68
[2019-07-01] MEDS: IPRATROPIUM/ALBUTEROL 0.5-3(2.5)MG/3ML NEB HHN SCH ×4 (01:53→20:58)
[2019-07-01 05:24] LABS: HEMATOCRIT. 28.7 % (36.0-48.0); HEMOGLOBIN. 9.4 g/dL (12.0-16.0); MEAN CORPUSCULAR HEMOGLOBIN 31.2 pg (28.0-32.0); MEAN CORPUSCULAR VOLUME 95.7 fL (81.0-99.0); MEAN PLATELET VOLUME 8.8 fl (7.4-10.4); PLATELET 148 x1000/uL (130-400)
[2019-07-01] MEDS: HYDRALAZINE HCL 25MG TABLET PO SCH (06:00)
[2019-07-01] MEDS: FUROSEMIDE 40MG/4ML VIAL IVP SCH ×2 (06:19→15:55)
[2019-07-01] MEDS: OMEPRAZOLE 20MG CAPSULE EXTENDED RELEASE PO SCH (06:19)
[2019-07-01 06:31] LABS: PLATELET ESTIMATE NORMAL
[2019-07-01] MEDS ORDERED: ENOXAPARIN 60MG/0.6ML SYR SUBCUT SCH (09:30)
[2019-07-01] MEDS: DOPAMINE 400MG/250ML PREMIX 250 ML IV PRN (22:50)
[2019-07-02] VITALS (95 sets, daily range): BP systolic 76–132; BP diastolic 27–81
[2019-07-02] MEDS: IPRATROPIUM/ALBUTEROL 0.5-3(2.5)MG/3ML NEB HHN SCH ×3 (03:57→20:16)
[2019-07-02] MEDS: FUROSEMIDE 40MG/4ML VIAL IVP SCH (05:33)
[2019-07-02] MEDS: OMEPRAZOLE 20MG CAPSULE EXTENDED RELEASE PO SCH (05:33)
[2019-07-02 06:10] LABS: HEMATOCRIT. 26.5 % (36.0-48.0); HEMOGLOBIN. 8.6 g/dL (12.0-16.0); MEAN CORPUSCULAR HEMOGLOBIN 31.6 pg (28.0-32.0); MEAN CORPUSCULAR VOLUME 97.5 fL (81.0-99.0); PLATELET 117 x1000/uL (130-400); RED BLOOD CELL COUNT 2.72 mill/uL (4.2-5.4); RED CELL DISTRIBUTION WIDTH 19.2 % (11.6-14.6)
[2019-07-02 06:17] LABS: CHLORIDE 107 mEq/L (98-107)
[2019-07-02 08:16] LABS: PLATELET ESTIMATE SLIGHTLY DECREASED
[2019-07-02] MEDS: DOCUSATE SODIUM 100MG CAPSULE PO SCH (08:50)
[2019-07-02] MEDS ORDERED: ENOXAPARIN 40MG/0.4ML SYR SUBCUT NR (09:15)
[2019-07-02] MEDS: THEOPHYLLINE ANHYDROUS 80 MG/15 ML 120ML PO SCH ×3 (11:47→23:58)
[2019-07-02] MEDS: ENOXAPARIN 40MG/0.4ML SYR SUBCUT SCH (20:07)
[2019-07-02] MEDS ORDERED: LACTULOSE 20G/30ML UDC PO PRN (21:00)
[2019-07-03] VITALS (96 sets, daily range): BP systolic 66–128; BP diastolic 32–86
[2019-07-03] MEDS ORDERED: DOPAMINE 400MG/250ML PREMIX 250 ML IV PRN
[2019-07-03] MEDS: IPRATROPIUM/ALBUTEROL 0.5-3(2.5)MG/3ML NEB HHN SCH ×4 (02:29→20:26)
[2019-07-03 05:32] LABS: BASOPHILS % 0.4 % (0.0-2.0); EOSINOPHILS % 6.5 % (0.0-5.0); HEMATOCRIT. 24.4 % (36.0-48.0); HEMOGLOBIN. 7.9 g/dL (12.0-16.0); LYMPHOCYTES % 7.2 % (20.0-50.0); MEAN CORPUSCULAR HEMOGLOBIN 31.4 pg (28.0-32.0); MEAN CORPUSCULAR VOLUME 96.6 fL (81.0-99.0); MEAN PLATELET VOLUME 9.2 fl (7.4-10.4); MONOCYTES % 13.4 % (2.0-8.0); NEUTROPHILS % 72.5 % (40.0-76.0); PLATELET 103 x1000/uL (130-400); RED BLOOD CELL COUNT 2.53 mill/uL (4.2-5.4); RED CELL DISTRIBUTION WIDTH 18.7 % (11.6-14.6)
[2019-07-03] MEDS: OMEPRAZOLE 20MG CAPSULE EXTENDED RELEASE PO SCH (05:41)
[2019-07-03 05:42] LABS: CHLORIDE 107 mEq/L (98-107)
[2019-07-03] MEDS: THEOPHYLLINE ANHYDROUS 80 MG/15 ML 120ML PO SCH ×3 (05:44→18:55)
[2019-07-03] MEDS ORDERED: DIPHENHYDRAMINE 50MG/ML VIAL IV PRN (08:00)
[2019-07-03] MEDS: DOCUSATE SODIUM 100MG CAPSULE PO SCH (08:23)
[2019-07-03] MEDS: ENOXAPARIN 40MG/0.4ML SYR SUBCUT SCH ×2 (08:24→20:47)
[2019-07-04] VITALS (83 sets, daily range): BP systolic 92–188; BP diastolic 19–96
[2019-07-04] MEDS: THEOPHYLLINE ANHYDROUS 80 MG/15 ML 120ML PO SCH ×4 (00:47→18:22)
[2019-07-04] MEDS: IPRATROPIUM/ALBUTEROL 0.5-3(2.5)MG/3ML NEB HHN SCH ×4 (02:08→20:52)
[2019-07-04] MEDS: OMEPRAZOLE 20MG CAPSULE EXTENDED RELEASE PO SCH (05:41)
[2019-07-04 06:04] LABS: BASOPHILS % 0.2 % (0.0-2.0); EOSINOPHILS % 8.6 % (0.0-5.0); HEMATOCRIT. 26.2 % (36.0-48.0); HEMOGLOBIN. 8.5 g/dL (12.0-16.0); LYMPHOCYTES % 8.2 % (20.0-50.0); MEAN CORPUSCULAR VOLUME 95.3 fL (81.0-99.0); MEAN PLATELET VOLUME 8.9 fl (7.4-10.4); MONOCYTES % 10.7 % (2.0-8.0); NEUTROPHILS % 72.3 % (40.0-76.0); PLATELET 121 x1000/uL (130-400); RED BLOOD CELL COUNT 2.75 mill/uL (4.2-5.4); RED CELL DISTRIBUTION WIDTH 18.7 % (11.6-14.6)
[2019-07-04 06:25] LABS: CHLORIDE 105 mEq/L (98-107)
[2019-07-04] MEDS: ENOXAPARIN 40MG/0.4ML SYR SUBCUT SCH ×2 (08:14→20:29)
[2019-07-04] MEDS: DOCUSATE SODIUM 100MG CAPSULE PO SCH (08:14)
[2019-07-04 09:27] LABS: BG BASE EXCESS 9.1 mmol/L (-2.0-2.0); BG BILEVEL POS AIRWAY PRESSURE 15/5; BG CARBOXYHEMOGLOBIN 0.3 % (0.5-1.5); BG DEOXYHEMOGLOBIN 5.6 % (0.0-5.0); BG HCO3 ACT 36.6 mmol/L (22.0-26.0); BG METHEMOGLOBIN 0.3 % (0.0-1.5); BG OXYGEN SATURATION 94.4 % (92.0-98.5); BG OXYHEMOGLOBIN 93.8 % (94.0-97.0); BG PCO2 68.5 mmHg (35.0-45.0); BG PH 7.346 (7.350-7.450); BG PO2 78.3 mmHg (75.0-100.0); BG SAMPLE SITE RIGHT RADIAL; BG TOTAL HEMOGLOBIN 10.2 g/dL (12.0-18.0); BG VENT MODE MASK - BIPAP; BG VENT RATE 16 set
[2019-07-04 12:38] LABS: BG BILEVEL POS AIRWAY PRESSURE 15/5; BG CARBOXYHEMOGLOBIN 0.1 % (0.5-1.5); BG DEOXYHEMOGLOBIN 3.7 % (0.0-5.0); BG METHEMOGLOBIN 0.2 % (0.0-1.5); BG OXYGEN SATURATION 96.3 % (92.0-98.5); BG PCO2 66.5 mmHg (35.0-45.0); BG PH 7.375 (7.350-7.450); BG PO2 89.7 mmHg (75.0-100.0); BG SAMPLE SITE RIGHT RADIAL; BG TOTAL HEMOGLOBIN 9.3 g/dL (12.0-18.0); BG VENT MODE MASK - BIPAP; BG VENT RATE 22 set
[2019-07-04] MEDS ORDERED: MACI10TA2 PO (16:44)
[2019-07-04] MEDS ORDERED: PARO-66 PO (16:44)
[2019-07-05] VITALS (16 sets, daily range): BP systolic 106–143; BP diastolic 50–87
[2019-07-05] MEDS: THEOPHYLLINE ANHYDROUS 80 MG/15 ML 120ML PO SCH ×3 (00:06→13:51)
[2019-07-05] MEDS: IPRATROPIUM/ALBUTEROL 0.5-3(2.5)MG/3ML NEB HHN SCH ×3 (01:50→13:55)
[2019-07-05 05:30] LABS: BASOPHILS % 0.5 % (0.0-2.0); EOSINOPHILS % 7.8 % (0.0-5.0); HEMATOCRIT. 27.2 % (36.0-48.0); HEMOGLOBIN. 8.8 g/dL (12.0-16.0); LYMPHOCYTES % 8.6 % (20.0-50.0); MEAN CORPUSCULAR HEMOGLOBIN 31.1 pg (28.0-32.0); MEAN CORPUSCULAR VOLUME 96.6 fL (81.0-99.0); MEAN PLATELET VOLUME 8.9 fl (7.4-10.4); MONOCYTES % 12.5 % (2.0-8.0); NEUTROPHILS % 70.6 % (40.0-76.0); PLATELET 122 x1000/uL (130-400); RED BLOOD CELL COUNT 2.81 mill/uL (4.2-5.4); RED CELL DISTRIBUTION WIDTH 18.5 % (11.6-14.6)
[2019-07-05 05:44] LABS: CHLORIDE 107 mEq/L (98-107)
[2019-07-05] MEDS: OMEPRAZOLE 20MG CAPSULE EXTENDED RELEASE PO SCH (06:28)
[2019-07-05] MEDS: DOCUSATE SODIUM 100MG CAPSULE PO SCH (09:00)
[2019-07-05] MEDS: ENOXAPARIN 40MG/0.4ML SYR SUBCUT SCH (09:38)
[2019-07-05] MEDS ORDERED: FUROSEMIDE 40MG/4ML VIAL IVP SCH (10:30)
[2019-07-05] MEDS ORDERED: ENOXAPARIN 60MG/0.6ML SYR SUBCUT NR (11:02)
[2019-07-05] MEDS ORDERED: [UNRECOGNIZED DRUG - REMARK] PO SCH (13:00)
[2019-07-05] MEDS ORDERED: DILTIAZEM HCL 30MG TABLET PO SCH (14:00)
[2019-07-05] MEDS ORDERED: ENOXAPARIN 100MG/ML SYR SUBCUT SCH (21:00)
== END 2019-07-05 14:45 | DRG 291 ==
LOC: ER 14:52 → EDBEDREQ 15:29 → 5EST 15:50 → EDBEDREQSVC 15:53 → EDBEDREQ 15:53 → ENRESERV 19:29 → MICUNO 06-30 08:50 → UNDODISIN 07-05 08:47
PROVIDERS: ADMIT Internal Medicine; ATTEND Internal Medicine
PROC: 5A09357 Assistance with Respiratory Ventilation, Less than 24 Consecutive Hours, Continuous Positive Airway Pressure (ICD-10-PCS; 2019-06-29)
PROC: 02HV33Z Insertion of Infusion Device into Superior Vena Cava, Percutaneous Approach (ICD-10-PCS; principal; 2019-06-30)
PROC: B548ZZA Ultrasonography of Superior Vena Cava, Guidance (ICD-10-PCS; 2019-06-30)
PROC: 4B02XTZ Measurement of Cardiac Defibrillator, External Approach (ICD-10-PCS; 2019-06-30)
PROC: 5A09357 Assistance with Respiratory Ventilation, Less than 24 Consecutive Hours, Continuous Positive Airway Pressure (ICD-10-PCS; 2019-07-01)
PROC: 5A09357 Assistance with Respiratory Ventilation, Less than 24 Consecutive Hours, Continuous Positive Airway Pressure (ICD-10-PCS; 2019-07-02)
PROC: 5A09357 Assistance with Respiratory Ventilation, Less than 24 Consecutive Hours, Continuous Positive Airway Pressure (ICD-10-PCS; 2019-07-03)
PROC: 5A09357 Assistance with Respiratory Ventilation, Less than 24 Consecutive Hours, Continuous Positive Airway Pressure (ICD-10-PCS; 2019-07-04)
PROC: 5A09357 Assistance with Respiratory Ventilation, Less than 24 Consecutive Hours, Continuous Positive Airway Pressure (ICD-10-PCS; 2019-07-05)
DX: I13.0 Hypertensive heart and chronic kidney disease with heart failure and stage 1 through stage 4 chronic kidney disease, or unspecified chronic kidney disease (principal); I50.33 Acute on chronic diastolic (congestive) heart failure; J96.20 Acute and chronic respiratory failure, unspecified whether with hypoxia or hypercapnia; N39.0 Urinary tract infection, site not specified; E87.2 Acidosis; I48.19 Other persistent atrial fibrillation; Z68.42 Body mass index [BMI] 45.0-49.9, adult; T82.838A Hemorrhage due to vascular prosthetic devices, implants and grafts, initial encounter; I25.5 Ischemic cardiomyopathy; I25.10 Atherosclerotic heart disease of native coronary artery without angina pectoris; E78.5 Hyperlipidemia, unspecified; D64.9 Anemia, unspecified; D69.6 Thrombocytopenia, unspecified; E66.9 Obesity, unspecified; E78.00 Pure hypercholesterolemia, unspecified; J44.9 Chronic obstructive pulmonary disease, unspecified; R00.1 Bradycardia, unspecified; I27.29 Other secondary pulmonary hypertension; I08.2 Rheumatic disorders of both aortic and tricuspid valves; M10.9 Gout, unspecified; N18.9 Chronic kidney disease, unspecified; Z79.01 Long term (current) use of anticoagulants; Z82.49 Family history of ischemic heart disease and other diseases of the circulatory system; Z95.1 Presence of aortocoronary bypass graft; Z95.5 Presence of coronary angioplasty implant and graft; Z95.810 Presence of automatic (implantable) cardiac defibrillator; Z99.81 Dependence on supplemental oxygen; Z88.8 Allergy status to other drugs, medicaments and biological substances; Z79.899 Other long term (current) drug therapy; Y83.8 Other surgical procedures as the cause of abnormal reaction of the patient, or of later complication, without mention of misadventure at the time of the procedure
CPT/HCPCS: 36415; 36600; 71045; 71250; 76937; 80048; 81003; 82375; 82805; 83735; 83880; 84484; 90732; 93005; 93306; 93970; 94640; 94660; 99291; A6261; C1725; J0696; J1200; J1265; J1650; J1940; J7620; A4315

== ENCOUNTER → 2019-08-16 | Outpatient (CLI) | payer MEDICARE, OTHER ==
[~2019-08-16] VITALS: Ht 149.9 cm; Wt 83.9 kg
[~2019-08-16] MED LIST changes: +ALLO300T2 PO; +AMI2 PO; +APIX5TAB PO; +EZET10TA13 PO; -NEBI5TAB3 MT; +OLME40TA18 PO; +PARO-66 PO; +POTA20TA82 PO; +TRAM50TA3 PO
[2019-08-16 09:39] LABS: RED BLOOD CELL COUNT 3.68 mill/uL (4.2-5.4)
[2019-08-16 09:40] LABS: HEMATOCRIT 34.5 % (36.0-48.0); HEMOGLOBIN 11.2 g/dL (12.0-16.0); MEAN CORPUSCULAR HEMOGLOBIN 30.4 pg (28.0-32.0); MEAN CORPUSCULAR VOLUME 93.9 fL (81.0-99.0); PLATELET 145 x1000/uL (130-400); RED CELL DISTRIBUTION WIDTH 18.7 % (11.6-14.6)
[2019-08-16 09:44] LABS: CHLORIDE 106 mEq/L (98-107)
[2019-08-16 09:46] LABS: INR 1.1; PARTIAL THROMBOPLASTIN TIME 31.5 sec (23.4-31.0); PROTHROMBIN TIME 11.4 sec (9.6-11.0)
== END | disposition home or self-care (01) ==
LOC: CARD 07:54
PROVIDERS: ATTEND Internal Medicine Clinical Cardiac Electrophysiology
DX: I48.4 Atypical atrial flutter (principal); I50.22 Chronic systolic (congestive) heart failure; I25.2 Old myocardial infarction; Z95.810 Presence of automatic (implantable) cardiac defibrillator
CPT/HCPCS: 36415; 80048; 85027; 93005

== ENCOUNTER 2019-10-07 13:16 | Inpatient (IN) | payer MEDICARE, OTHER ==
[~2019-10-07] VITALS: Ht 149.9 cm; Wt 93.5 kg
[~2019-10-07 13:16] MED LIST changes: -AMIO100T4 PO; -EZET10TA26 MT; -MACI10TA2 PO; -OLME40TA18 MT; -PARO-66 PO; -POTA20TA82 MT
[2019-10-07] MEDS ORDERED: FUROSEMIDE 100MG/10ML VIAL IVP SCH (15:15)
[2019-10-07 15:23] LABS: CHLORIDE 107 mEq/L (98-107)
[2019-10-07 15:24] LABS: INR 1.2; PARTIAL THROMBOPLASTIN TIME 34.3 sec (23.4-31.0); PROTHROMBIN TIME 12.5 sec (9.6-11.0)
[2019-10-07 15:27] LABS: HEMATOCRIT. 29.8 % (36.0-48.0); HEMOGLOBIN. 9.6 g/dL (12.0-16.0); MEAN CORPUSCULAR HEMOGLOBIN 31.3 pg (28.0-32.0); MEAN CORPUSCULAR VOLUME 97.5 fL (81.0-99.0); MEAN PLATELET VOLUME 8.7 fl (7.4-10.4); PLATELET 139 x1000/uL (130-400); RED BLOOD CELL COUNT 3.06 mill/uL (4.2-5.4); RED CELL DISTRIBUTION WIDTH 18.1 % (11.6-14.6)
[2019-10-07] MEDS ORDERED: NITROGLYCERIN OINT 1GM/INCH UDPKT TD ONE (16:00)
[2019-10-07] MEDS ORDERED: ASPIRIN 81MG TABLET PO ONE (16:00)
[2019-10-07 16:13] LABS: PLATELET ESTIMATE NORMAL
[2019-10-07] MEDS: AMIODARONE HCL 200 MG TABLET PO SCH (16:39)
[2019-10-07] MEDS: FUROSEMIDE 40MG/4ML VIAL IV SCH (16:52)
[2019-10-07] MEDS: APIXABAN 5 MG TABLET PO SCH (16:52)
[2019-10-07] MEDS ORDERED: GUAIFENESIN 200MG/10ML SUGAR FREE UDC PO PRN (18:45)
[2019-10-07] MEDS ORDERED: DIPHENHYDRAMINE 50MG/ML VIAL IV PRN (18:45)
[2019-10-07] MEDS ORDERED: LORAZEPAM 2MG/ML CPJ IV PRN (18:45)
[2019-10-07] MEDS ORDERED: ACETAMINOPHEN 325MG TABLET PO PRN (18:45)
[2019-10-07] MEDS ORDERED: ONDANSETRON HCL 4MG/2ML INJ IV PRN (18:45)
[2019-10-07] MEDS ORDERED: MAGNESIUM/ALUMINUM HYDROXIDE/SIMETHICONE 30ML UDC PO PRN (18:45)
[2019-10-07] MEDS ORDERED: HYDRALAZINE 20MG/ML VIAL IV PRN (18:45)
[2019-10-08 01:09] LABS: CREATINE KINASE MB FRACTION 2.9 ng/mL (0.5-3.6)
[2019-10-08 07:17] LABS: HEMATOCRIT. 29.6 % (36.0-48.0); HEMOGLOBIN. 9.4 g/dL (12.0-16.0); MEAN CORPUSCULAR HEMOGLOBIN 30.9 pg (28.0-32.0); MEAN CORPUSCULAR VOLUME 97.6 fL (81.0-99.0); MEAN PLATELET VOLUME 8.2 fl (7.4-10.4); PLATELET 129 x1000/uL (130-400); RED BLOOD CELL COUNT 3.04 mill/uL (4.2-5.4); RED CELL DISTRIBUTION WIDTH 18.4 % (11.6-14.6)
[2019-10-08 07:24] LABS: CHLORIDE 109 mEq/L (98-107)
[2019-10-08 07:32] LABS: CREATINE KINASE 97 IU/L (26-192)
[2019-10-08 07:35] LABS: CREATINE KINASE MB FRACTION 2.6 ng/mL (0.5-3.6)
[2019-10-08 09:52] LABS: PLATELET ESTIMATE SLIGHTLY DECREASED
[2019-10-08] MEDS: FUROSEMIDE 40MG/4ML VIAL IV SCH ×2 (10:06→18:45)
[2019-10-08] MEDS: APIXABAN 5 MG TABLET PO SCH ×2 (10:24→18:45)
[2019-10-08 15:50] VITALS: BP 125/79
[2019-10-08 15:55] VITALS: BP 125/79
[2019-10-08 18:00] VITALS: BP 105/58
[2019-10-08 20:00] VITALS: BP 113/49
[2019-10-08] MEDS ORDERED: INFLUENZA VIRUS VACCINE(AFLURIA) 0.5ML SYR IM ONE (21:00)
[2019-10-08] MEDS: THEOPHYLLINE ANHYDROUS 80 MG/15 ML 120ML PO SCH (21:53)
[2019-10-08] MEDS: AMIODARONE HCL 200 MG TABLET PO SCH (21:54)
[2019-10-08] MEDS: SODIUM CHLORIDE 0.9% INJ 3ML FLUSH IVF SCH (21:55)
[2019-10-08 22:00] VITALS: BP 122/60
[2019-10-09] VITALS (16 sets, daily range): BP systolic 101–137; BP diastolic 42–90
[2019-10-09] MEDS: IPRATROPIUM/ALBUTEROL 0.5-3(2.5)MG/3ML NEB HHN SCH ×4 (01:20→20:28)
[2019-10-09] MEDS: BUDESONIDE 0.5MG/2ML NEB HHN SCH ×3 (04:03→20:29)
[2019-10-09] MEDS: SODIUM CHLORIDE 0.9% INJ 3ML FLUSH IVF SCH ×3 (06:15→21:02)
[2019-10-09] MEDS: THEOPHYLLINE ANHYDROUS 80 MG/15 ML 120ML PO SCH ×3 (06:15→21:02)
[2019-10-09 07:50] LABS: HEMATOCRIT. 31.6 % (36.0-48.0); MEAN CORPUSCULAR HEMOGLOBIN 30.9 pg (28.0-32.0); MEAN CORPUSCULAR VOLUME 97.8 fL (81.0-99.0); MEAN PLATELET VOLUME 8.7 fl (7.4-10.4); PLATELET 135 x1000/uL (130-400); RED BLOOD CELL COUNT 3.23 mill/uL (4.2-5.4); RED CELL DISTRIBUTION WIDTH 18.8 % (11.6-14.6)
[2019-10-09] MEDS: FUROSEMIDE 40MG/4ML VIAL IV SCH ×2 (10:22→17:57)
[2019-10-09] MEDS: APIXABAN 5 MG TABLET PO SCH ×2 (10:23→17:58)
[2019-10-09] MEDS: AMIODARONE HCL 200 MG TABLET PO SCH ×2 (10:23→21:02)
[2019-10-09] MEDS: OPSUMIT 10 MG PO SCH (10:24)
[2019-10-09] MEDS: IPRATROPIUM/ALBUTEROL 0.5-3(2.5)MG/3ML NEB HHN PRN (15:55)
[2019-10-09 19:32] LABS: PLATELET ESTIMATE NORMAL
[2019-10-10] VITALS (7 sets, daily range): BP systolic 107–124; BP diastolic 49–58
[2019-10-10] MEDS: IPRATROPIUM/ALBUTEROL 0.5-3(2.5)MG/3ML NEB HHN SCH ×4 (02:02→21:28)
[2019-10-10] MEDS ORDERED: INFLUENZA VIRUS VACCINE(AFLURIA) 0.5ML SYR IM ONE (02:30)
[2019-10-10] MEDS: SODIUM CHLORIDE 0.9% INJ 3ML FLUSH IVF SCH ×3 (05:33→21:12)
[2019-10-10 05:34] LABS: HEMATOCRIT. 27.6 % (36.0-48.0); MEAN CORPUSCULAR HEMOGLOBIN 31.3 pg (28.0-32.0); MEAN CORPUSCULAR VOLUME 96.3 fL (81.0-99.0); MEAN PLATELET VOLUME 8.6 fl (7.4-10.4); PLATELET 117 x1000/uL (130-400); RED BLOOD CELL COUNT 2.86 mill/uL (4.2-5.4); RED CELL DISTRIBUTION WIDTH 18.2 % (11.6-14.6)
[2019-10-10] MEDS: THEOPHYLLINE ANHYDROUS 80 MG/15 ML 120ML PO SCH ×3 (05:37→21:11)
[2019-10-10 07:29] LABS: CHLORIDE 106 mEq/L (98-107)
[2019-10-10] MEDS: BUDESONIDE 0.5MG/2ML NEB HHN SCH ×2 (08:05→21:27)
[2019-10-10] MEDS: AMIODARONE HCL 200 MG TABLET PO SCH ×2 (09:08→21:11)
[2019-10-10] MEDS: APIXABAN 5 MG TABLET PO SCH ×2 (09:08→17:12)
[2019-10-10] MEDS: FUROSEMIDE 40MG/4ML VIAL IV SCH ×2 (09:09→17:12)
[2019-10-10] MEDS: OPSUMIT 10 MG PO SCH (09:09)
[2019-10-10 12:57] LABS: PLATELET ESTIMATE SLIGHTLY DECREASED
[2019-10-11] VITALS (8 sets, daily range): BP systolic 107–125; BP diastolic 49–70
[2019-10-11] MEDS: IPRATROPIUM/ALBUTEROL 0.5-3(2.5)MG/3ML NEB HHN SCH ×4 (03:21→20:31)
[2019-10-11] MEDS: THEOPHYLLINE ANHYDROUS 80 MG/15 ML 120ML PO SCH ×3 (06:00→21:46)
[2019-10-11] MEDS: SODIUM CHLORIDE 0.9% INJ 3ML FLUSH IVF SCH ×3 (06:02→21:46)
[2019-10-11] MEDS: BUDESONIDE 0.5MG/2ML NEB HHN SCH ×2 (08:16→21:32)
[2019-10-11] MEDS: APIXABAN 5 MG TABLET PO SCH ×2 (08:50→17:24)
[2019-10-11] MEDS: AMIODARONE HCL 200 MG TABLET PO SCH ×2 (08:50→21:46)
[2019-10-11] MEDS: OPSUMIT 10 MG PO SCH (08:50)
[2019-10-11] MEDS: FUROSEMIDE 40MG/4ML VIAL IV SCH ×2 (08:50→17:24)
[2019-10-11] MEDS: DOCUSATE SODIUM 100MG CAPSULE PO PRN (21:48)
[2019-10-12] VITALS (7 sets, daily range): BP systolic 107–123; BP diastolic 49–69
[2019-10-12] MEDS: IPRATROPIUM/ALBUTEROL 0.5-3(2.5)MG/3ML NEB HHN SCH ×5 (01:54→21:40)
[2019-10-12] MEDS: SODIUM CHLORIDE 0.9% INJ 3ML FLUSH IVF SCH ×3 (05:52→21:11)
[2019-10-12] MEDS: THEOPHYLLINE ANHYDROUS 80 MG/15 ML 120ML PO SCH ×3 (05:54→21:05)
[2019-10-12 06:58] LABS: HEMATOCRIT. 27.3 % (36.0-48.0); HEMOGLOBIN. 8.9 g/dL (12.0-16.0); MEAN CORPUSCULAR HEMOGLOBIN 31.2 pg (28.0-32.0); MEAN CORPUSCULAR VOLUME 95.3 fL (81.0-99.0); MEAN PLATELET VOLUME 8.5 fl (7.4-10.4); PLATELET 113 x1000/uL (130-400); RED BLOOD CELL COUNT 2.86 mill/uL (4.2-5.4); RED CELL DISTRIBUTION WIDTH 18.2 % (11.6-14.6)
[2019-10-12 07:36] LABS: CHLORIDE 101 mEq/L (98-107)
[2019-10-12] MEDS: APIXABAN 5 MG TABLET PO SCH ×2 (08:46→17:01)
[2019-10-12] MEDS: FUROSEMIDE 40MG/4ML VIAL IV SCH (08:46)
[2019-10-12] MEDS: OPSUMIT 10 MG PO SCH (08:50)
[2019-10-12] MEDS: BUDESONIDE 0.5MG/2ML NEB HHN SCH (08:58)
[2019-10-12] MEDS ORDERED: FUROSEMIDE 40MG/4ML VIAL IV SCH (09:15)
[2019-10-12] MEDS: AMIODARONE HCL 200 MG TABLET PO SCH ×2 (09:24→21:05)
[2019-10-12] MEDS ORDERED: KCL 20MEQ/100ML PREMIX 100 ML IV NR (10:30)
[2019-10-12] MEDS ORDERED: CLOP75TA4 PO (14:04)
[2019-10-12] MEDS ORDERED: NIFE-33 PO (14:04)
[2019-10-12 15:23] LABS: PLATELET ESTIMATE SLIGHTLY DECREASED
[2019-10-12] MEDS: FUROSEMIDE 100MG/10ML VIAL IV SCH (17:02)
[2019-10-13] VITALS: BP 126/62
[2019-10-13 04:00] VITALS: BP 135/74
[2019-10-13] MEDS: IPRATROPIUM/ALBUTEROL 0.5-3(2.5)MG/3ML NEB HHN SCH ×4 (04:42→21:53)
[2019-10-13] MEDS: THEOPHYLLINE ANHYDROUS 80 MG/15 ML 120ML PO SCH ×3 (05:14→22:41)
[2019-10-13] MEDS: SODIUM CHLORIDE 0.9% INJ 3ML FLUSH IVF SCH ×3 (05:14→22:42)
[2019-10-13] MEDS: FUROSEMIDE 100MG/10ML VIAL IV SCH ×2 (06:54→17:39)
[2019-10-13 07:01] LABS: CHLORIDE 100 mEq/L (98-107)
[2019-10-13 07:16] LABS: HEMATOCRIT. 29.4 % (36.0-48.0); HEMOGLOBIN. 9.6 g/dL (12.0-16.0); MEAN CORPUSCULAR HEMOGLOBIN 31.2 pg (28.0-32.0); MEAN CORPUSCULAR VOLUME 95.7 fL (81.0-99.0); MEAN PLATELET VOLUME 8.4 fl (7.4-10.4); PLATELET 133 x1000/uL (130-400); RED BLOOD CELL COUNT 3.08 mill/uL (4.2-5.4); RED CELL DISTRIBUTION WIDTH 17.7 % (11.6-14.6)
[2019-10-13 08:00] VITALS: BP 119/84
[2019-10-13] MEDS: BUDESONIDE 0.5MG/2ML NEB HHN SCH ×2 (08:05→21:53)
[2019-10-13] MEDS: APIXABAN 5 MG TABLET PO SCH ×2 (09:04→17:39)
[2019-10-13] MEDS: POTASSIUM CHLORIDE 20MEQ TABLET SR PO SCH (09:04)
[2019-10-13] MEDS: AMIODARONE HCL 200 MG TABLET PO SCH ×2 (09:04→22:42)
[2019-10-13] MEDS: OPSUMIT 10 MG PO SCH (09:04)
[2019-10-13 12:00] VITALS: BP 119/56
[2019-10-13 16:28] LABS: PLATELET ESTIMATE NORMAL
[2019-10-13 20:01] VITALS: BP 115/64
[2019-10-14] VITALS (9 sets, daily range): BP systolic 111–131; BP diastolic 47–89
[2019-10-14] MEDS: IPRATROPIUM/ALBUTEROL 0.5-3(2.5)MG/3ML NEB HHN SCH ×4 (04:57→20:00)
[2019-10-14] MEDS: THEOPHYLLINE ANHYDROUS 80 MG/15 ML 120ML PO SCH ×3 (06:12→21:11)
[2019-10-14] MEDS: SODIUM CHLORIDE 0.9% INJ 3ML FLUSH IVF SCH ×3 (06:13→21:11)
[2019-10-14] MEDS: FUROSEMIDE 100MG/10ML VIAL IV SCH ×2 (06:15→16:16)
[2019-10-14 06:36] LABS: HEMATOCRIT. 27.9 % (36.0-48.0); MEAN CORPUSCULAR HEMOGLOBIN 31.1 pg (28.0-32.0); MEAN PLATELET VOLUME 8.7 fl (7.4-10.4); PLATELET 127 x1000/uL (130-400); RED BLOOD CELL COUNT 2.91 mill/uL (4.2-5.4); RED CELL DISTRIBUTION WIDTH 17.2 % (11.6-14.6)
[2019-10-14 07:09] LABS: CHLORIDE 97 mEq/L (98-107)
[2019-10-14] MEDS: AMIODARONE HCL 200 MG TABLET PO SCH ×2 (08:32→21:12)
[2019-10-14] MEDS: OPSUMIT 10 MG PO SCH (08:32)
[2019-10-14] MEDS: POTASSIUM CHLORIDE 20MEQ TABLET SR PO SCH (08:32)
[2019-10-14] MEDS: APIXABAN 5 MG TABLET PO SCH ×2 (08:32→16:16)
[2019-10-14] MEDS: BUDESONIDE 0.5MG/2ML NEB HHN SCH ×2 (09:06→20:00)
[2019-10-14] MEDS ORDERED: KCL 20MEQ/100ML PREMIX 100 ML IV NR (11:00)
[2019-10-14 13:26] LABS: PLATELET ESTIMATE NORMAL
[2019-10-14] MEDS: DOCUSATE SODIUM 100MG CAPSULE PO PRN (16:16)
[2019-10-15] VITALS (8 sets, daily range): BP systolic 104–127; BP diastolic 55–89
[2019-10-15] MEDS: IPRATROPIUM/ALBUTEROL 0.5-3(2.5)MG/3ML NEB HHN SCH ×4 (02:21→21:41)
[2019-10-15] MEDS: THEOPHYLLINE ANHYDROUS 80 MG/15 ML 120ML PO SCH ×3 (06:41→21:31)
[2019-10-15] MEDS: SODIUM CHLORIDE 0.9% INJ 3ML FLUSH IVF SCH ×3 (06:41→21:31)
[2019-10-15] MEDS: FUROSEMIDE 100MG/10ML VIAL IV SCH ×2 (06:41→17:55)
[2019-10-15] MEDS: BUDESONIDE 0.5MG/2ML NEB HHN SCH ×3 (06:44→21:41)
[2019-10-15 07:13] LABS: HEMATOCRIT. 29.8 % (36.0-48.0); HEMOGLOBIN. 9.7 g/dL (12.0-16.0); MEAN CORPUSCULAR HEMOGLOBIN 31.2 pg (28.0-32.0); MEAN CORPUSCULAR VOLUME 96.1 fL (81.0-99.0); MEAN PLATELET VOLUME 8.4 fl (7.4-10.4); PLATELET 146 x1000/uL (130-400); RED CELL DISTRIBUTION WIDTH 17.4 % (11.6-14.6)
[2019-10-15 07:15] LABS: CHLORIDE 96 mEq/L (98-107)
[2019-10-15] MEDS: APIXABAN 5 MG TABLET PO SCH ×2 (08:34→17:56)
[2019-10-15] MEDS: POTASSIUM CHLORIDE 20MEQ TABLET SR PO SCH (08:34)
[2019-10-15] MEDS: OPSUMIT 10 MG PO SCH (08:34)
[2019-10-15] MEDS: AMIODARONE HCL 200 MG TABLET PO SCH ×2 (08:34→21:31)
[2019-10-15] MEDS: IPRATROPIUM/ALBUTEROL 0.5-3(2.5)MG/3ML NEB HHN PRN (08:46)
[2019-10-15 10:45] LABS: NUCLEATED RED BLOOD CELLS 2 /100 WBC; PLATELET ESTIMATE NORMAL
[2019-10-15] MEDS ORDERED: KCL 20MEQ/100ML PREMIX 100 ML IV SCH (12:00)
[2019-10-16] VITALS (9 sets, daily range): BP systolic 115–138; BP diastolic 56–73
[2019-10-16] MEDS: IPRATROPIUM/ALBUTEROL 0.5-3(2.5)MG/3ML NEB HHN SCH ×3 (03:12→17:14)
[2019-10-16] MEDS: THEOPHYLLINE ANHYDROUS 80 MG/15 ML 120ML PO SCH ×2 (06:04→14:12)
[2019-10-16] MEDS: SODIUM CHLORIDE 0.9% INJ 3ML FLUSH IVF SCH ×2 (06:04→14:12)
[2019-10-16] MEDS: FUROSEMIDE 100MG/10ML VIAL IV SCH ×2 (06:31→17:13)
[2019-10-16 07:56] LABS: HEMATOCRIT. 28.3 % (36.0-48.0); HEMOGLOBIN. 9.3 g/dL (12.0-16.0); MEAN CORPUSCULAR HEMOGLOBIN 31.4 pg (28.0-32.0); MEAN CORPUSCULAR VOLUME 95.4 fL (81.0-99.0); MEAN PLATELET VOLUME 8.1 fl (7.4-10.4); PLATELET 150 x1000/uL (130-400); RED BLOOD CELL COUNT 2.97 mill/uL (4.2-5.4); RED CELL DISTRIBUTION WIDTH 16.7 % (11.6-14.6)
[2019-10-16 09:11] LABS: CHLORIDE 95 mEq/L (98-107)
[2019-10-16] MEDS: AMIODARONE HCL 200 MG TABLET PO SCH (09:13)
[2019-10-16] MEDS: APIXABAN 5 MG TABLET PO SCH ×2 (09:13→17:12)
[2019-10-16] MEDS: OPSUMIT 10 MG PO SCH (09:13)
[2019-10-16] MEDS: POTASSIUM CHLORIDE 20MEQ TABLET SR PO SCH (09:13)
[2019-10-16] MEDS ORDERED: POTASSIUM CHLORIDE INJ 40 MEQ in DEXT 5% WATER 500 ML IV NR (11:00)
[2019-10-16] MEDS: BUDESONIDE 0.5MG/2ML NEB HHN SCH (17:14)
[2019-10-17 03:31] LABS: PLATELET ESTIMATE NORMAL
== END 2019-10-16 20:39 | DRG 291 ==
LOC: ER 13:16 → 5EST 17:57 → ENRESERV 10-08 14:08
PROVIDERS: ADMIT Internal Medicine; ATTEND Internal Medicine
PROC: 4B02XSZ Measurement of Cardiac Pacemaker, External Approach (ICD-10-PCS; 2019-10-08)
PROC: 5A09357 Assistance with Respiratory Ventilation, Less than 24 Consecutive Hours, Continuous Positive Airway Pressure (ICD-10-PCS; principal; 2019-10-12)
PROC: 5A09357 Assistance with Respiratory Ventilation, Less than 24 Consecutive Hours, Continuous Positive Airway Pressure (ICD-10-PCS; 2019-10-13)
DX: I11.0 Hypertensive heart disease with heart failure (principal); J96.02 Acute respiratory failure with hypercapnia; Z68.41 Body mass index [BMI] 40.0-44.9, adult; I48.20 Chronic atrial fibrillation, unspecified; I50.33 Acute on chronic diastolic (congestive) heart failure; I27.21 Secondary pulmonary arterial hypertension; I25.10 Atherosclerotic heart disease of native coronary artery without angina pectoris; E78.5 Hyperlipidemia, unspecified; I27.29 Other secondary pulmonary hypertension; I07.1 Rheumatic tricuspid insufficiency; D64.9 Anemia, unspecified; I25.5 Ischemic cardiomyopathy; D69.6 Thrombocytopenia, unspecified; Z96.653 Presence of artificial knee joint, bilateral; I95.9 Hypotension, unspecified; E66.9 Obesity, unspecified; E11.9 Type 2 diabetes mellitus without complications; E87.6 Hypokalemia; J44.9 Chronic obstructive pulmonary disease, unspecified; M10.9 Gout, unspecified; Z79.01 Long term (current) use of anticoagulants; Z79.02 Long term (current) use of antithrombotics/antiplatelets; Z79.899 Other long term (current) drug therapy; Z87.891 Personal history of nicotine dependence; Z99.81 Dependence on supplemental oxygen; Z88.8 Allergy status to other drugs, medicaments and biological substances; Z95.5 Presence of coronary angioplasty implant and graft; Z95.1 Presence of aortocoronary bypass graft; Z88.6 Allergy status to analgesic agent; Z95.0 Presence of cardiac pacemaker
CPT/HCPCS: 36415; 71045; 80048; 80053; 82550; 82553; 82962; 83735; 83880; 84484; 85025; 90686; 93005; 93970; 94640; 94660; 96374; 99285; J1200; J1940; J3480; J7060; J7626; A4315

== ENCOUNTER 2019-12-30 12:15 | Inpatient (IN) | payer MEDICARE, MEDICAID ==
[~2019-12-30] VITALS: Ht 167.6 cm; Wt 88.0 kg
[~2019-12-30 12:15] MED LIST changes: +CLOP75TA4 PO; +NIFE-33 PO
[2019-12-30] MEDS ORDERED: IPRATROPIUM BROMIDE (0.02%) 0.5MG/2.5ML NEB HHN STA (12:54)
[2019-12-30] MEDS ORDERED: ALBUTEROL (0.083%) 2.5MG/3ML NEB HHN STA (12:54)
[2019-12-30] MEDS ORDERED: FUROSEMIDE 20MG/2ML VIAL IVP ONE (13:00)
[2019-12-30 13:18] LABS: HEMATOCRIT. 31.8 % (36.0-48.0); HEMOGLOBIN. 10.3 g/dL (12.0-16.0); MEAN CORPUSCULAR HEMOGLOBIN 31.2 pg (28.0-32.0); MEAN CORPUSCULAR VOLUME 96.2 fL (81.0-99.0); MEAN PLATELET VOLUME 8.3 fl (7.4-10.4); PLATELET 160 x1000/uL (130-400); RED BLOOD CELL COUNT 3.31 mill/uL (4.2-5.4); RED CELL DISTRIBUTION WIDTH 18.3 % (11.6-14.6)
[2019-12-30 13:25] LABS: CHLORIDE 104 mEq/L (98-107)
[2019-12-30 13:35] LABS: PLATELET ESTIMATE NORMAL
[2019-12-30 14:13] LABS: CLARITY URINE CLEAR (CLEAR); COLOR URINE YELLOW (YELLOW); KETONES URINE NEGATIVE (NEGATIVE); LEUKOCYTE ESTERASE URINE 3+ (NEGATIVE); NITRITE URINE NEGATIVE (NEGATIVE); OCCULT BLOOD URINE NEGATIVE (NEGATIVE); PROTEIN URINE 1+ (NEGATIVE); SPECIFIC GRAVITY URINE 1.011 (1.005-1.030); UROBILINOGEN URINE 0.2 E.U./dL (0.2-1.0)
[2019-12-30] MEDS ORDERED: ALBUTEROL (0.083%) 2.5MG/3ML NEB ONE (14:15)
[2019-12-30] MEDS ORDERED: IPRATROPIUM BROMIDE (0.02%) 0.5MG/2.5ML NEB ONE (14:16)
[2019-12-30] MEDS ORDERED: CEFTRIAXONE 1 G PREMIX 50 ML IV ONE (14:45)
[2019-12-30 16:00] VITALS: BP 133/91
[2019-12-30 16:41] VITALS: BP 133/91
[2019-12-30] MEDS ORDERED: DIPHENHYDRAMINE 50MG/ML VIAL IV PRN (17:00)
[2019-12-30] MEDS ORDERED: DOCUSATE SODIUM 100MG CAPSULE PO PRN (17:00)
[2019-12-30] MEDS ORDERED: CLONIDINE 0.1MG TABLET PO PRN (17:00)
[2019-12-30] MEDS ORDERED: MAGNESIUM/ALUMINUM HYDROXIDE/SIMETHICONE 30ML UDC PO PRN (17:00)
[2019-12-30] MEDS ORDERED: ONDANSETRON HCL 4MG/2ML INJ IV PRN (17:00)
[2019-12-30] MEDS ORDERED: HYDRALAZINE 20MG/ML VIAL IV PRN (17:00)
[2019-12-30] MEDS ORDERED: LORAZEPAM 2MG/ML CPJ IV PRN (17:00)
[2019-12-30] MEDS ORDERED: MORPHINE SULFATE 2 MG/ML CPJ (NOT FOR IM USE) IV PRN (17:00)
[2019-12-30] MEDS ORDERED: IPRATROPIUM/ALBUTEROL 0.5-3(2.5)MG/3ML NEB HHN PRN (17:00)
[2019-12-30] MEDS ORDERED: GUAIFENESIN 200MG/10ML SUGAR FREE UDC PO PRN (17:00)
[2019-12-30 18:00] VITALS: BP 143/65
[2019-12-30] MEDS: APIXABAN 5 MG TABLET PO SCH (18:04)
[2019-12-30] MEDS: AMIODARONE HCL 200 MG TABLET PO SCH (18:04)
[2019-12-30] MEDS: FUROSEMIDE 40MG/4ML VIAL IVP SCH (18:04)
[2019-12-30] MEDS: LOSARTAN POTASSIUM 25 MG TABLET PO SCH (18:04)
[2019-12-30 20:00] VITALS: BP 122/58
[2019-12-30] MEDS: ATORVASTATIN CALCIUM 20MG TABLET PO SCH (21:26)
[2019-12-30] MEDS: SODIUM CHLORIDE 0.9% INJ 3ML FLUSH IVF SCH (21:27)
[2019-12-30 22:00] VITALS: BP 88/46
[2019-12-30 23:17] LABS: CREATINE KINASE MB FRACTION 3.7 ng/mL (0.5-3.6)
[2019-12-31] VITALS (12 sets, daily range): BP systolic 88–118; BP diastolic 49–62
[2019-12-31] MEDS: SODIUM CHLORIDE 0.9% INJ 3ML FLUSH IVF SCH ×3 (06:26→21:09)
[2019-12-31 07:18] LABS: HEMATOCRIT. 27.8 % (36.0-48.0); MEAN CORPUSCULAR HEMOGLOBIN 31.1 pg (28.0-32.0); MEAN CORPUSCULAR VOLUME 96.3 fL (81.0-99.0); MEAN PLATELET VOLUME 8.4 fl (7.4-10.4); PLATELET 123 x1000/uL (130-400); RED BLOOD CELL COUNT 2.89 mill/uL (4.2-5.4); RED CELL DISTRIBUTION WIDTH 17.8 % (11.6-14.6)
[2019-12-31 07:29] LABS: CHLORIDE 105 mEq/L (98-107)
[2019-12-31 07:40] LABS: CREATINE KINASE 138 IU/L (26-192)
[2019-12-31 07:43] LABS: CREATINE KINASE MB FRACTION 3.5 ng/mL (0.5-3.6)
[2019-12-31] MEDS: LOSARTAN POTASSIUM 25 MG TABLET PO SCH (09:00)
[2019-12-31] MEDS: APIXABAN 5 MG TABLET PO SCH (09:09)
[2019-12-31] MEDS: FUROSEMIDE 40MG/4ML VIAL IVP SCH ×2 (09:09→17:15)
[2019-12-31] MEDS: AMIODARONE HCL 200 MG TABLET PO SCH ×2 (09:21→17:00)
[2019-12-31 11:36] LABS: PLATELET ESTIMATE SLIGHTLY DECREASED
[2019-12-31] MEDS: ATORVASTATIN CALCIUM 20MG TABLET PO SCH (21:09)
[2020-01-01] VITALS (14 sets, daily range): BP systolic 99–152; BP diastolic 48–76
[2020-01-01] MEDS: SODIUM CHLORIDE 0.9% INJ 3ML FLUSH IVF SCH ×3 (06:16→21:35)
[2020-01-01] MEDS: FUROSEMIDE 40MG/4ML VIAL IVP SCH ×2 (06:16→17:51)
[2020-01-01 06:24] LABS: HEMATOCRIT. 28.5 % (36.0-48.0); HEMOGLOBIN. 9.1 g/dL (12.0-16.0); MEAN CORPUSCULAR HEMOGLOBIN 30.8 pg (28.0-32.0); MEAN CORPUSCULAR VOLUME 96.3 fL (81.0-99.0); PLATELET 133 x1000/uL (130-400); RED BLOOD CELL COUNT 2.95 mill/uL (4.2-5.4); RED CELL DISTRIBUTION WIDTH 18.4 % (11.6-14.6)
[2020-01-01] MEDS: AMIODARONE HCL 200 MG TABLET PO SCH ×2 (09:19→17:51)
[2020-01-01] MEDS: LOSARTAN POTASSIUM 25 MG TABLET PO SCH (09:19)
[2020-01-01 11:21] LABS: PLATELET ESTIMATE NORMAL
[2020-01-01] MEDS: ATORVASTATIN CALCIUM 20MG TABLET PO SCH (21:35)
[2020-01-02] VITALS (10 sets, daily range): BP systolic 121–171; BP diastolic 53–76
[2020-01-02] MEDS: SODIUM CHLORIDE 0.9% INJ 3ML FLUSH IVF SCH ×3 (05:37→21:36)
[2020-01-02 05:58] LABS: BASOPHILS % 0.5 % (0.0-2.0); EOSINOPHILS % 5.3 % (0.0-5.0); HEMATOCRIT. 29.3 % (36.0-48.0); HEMOGLOBIN. 9.4 g/dL (12.0-16.0); MEAN CORPUSCULAR HEMOGLOBIN 30.9 pg (28.0-32.0); MEAN CORPUSCULAR VOLUME 96.4 fL (81.0-99.0); MEAN PLATELET VOLUME 8.2 fl (7.4-10.4); MONOCYTES % 13.3 % (2.0-8.0); NEUTROPHILS % 72.9 % (40.0-76.0); PLATELET 133 x1000/uL (130-400); RED BLOOD CELL COUNT 3.04 mill/uL (4.2-5.4)
[2020-01-02] MEDS: LOSARTAN POTASSIUM 25 MG TABLET PO SCH (09:10)
[2020-01-02] MEDS: AMIODARONE HCL 200 MG TABLET PO SCH ×2 (09:13→17:25)
[2020-01-02] MEDS: FUROSEMIDE 40MG/4ML VIAL IVP SCH ×2 (09:14→17:25)
[2020-01-02] MEDS: ATORVASTATIN CALCIUM 20MG TABLET PO SCH (21:32)
[2020-01-03] VITALS (9 sets, daily range): BP systolic 114–138; BP diastolic 52–69
[2020-01-03] MEDS: SODIUM CHLORIDE 0.9% INJ 3ML FLUSH IVF SCH ×3 (05:49→20:38)
[2020-01-03] MEDS: FUROSEMIDE 40MG/4ML VIAL IVP SCH ×2 (05:49→17:04)
[2020-01-03 07:32] LABS: BASOPHILS % 0.6 % (0.0-2.0); HEMATOCRIT. 31.7 % (36.0-48.0); HEMOGLOBIN. 10.2 g/dL (12.0-16.0); LYMPHOCYTES % 7.4 % (20.0-50.0); MEAN CORPUSCULAR VOLUME 95.8 fL (81.0-99.0); MEAN PLATELET VOLUME 9.6 fl (7.4-10.4); MONOCYTES % 12.2 % (2.0-8.0); NEUTROPHILS % 74.8 % (40.0-76.0); PLATELET 143 x1000/uL (130-400); RED CELL DISTRIBUTION WIDTH 17.9 % (11.6-14.6)
[2020-01-03 08:01] LABS: CHLORIDE 104 mEq/L (98-107)
[2020-01-03] MEDS: LOSARTAN POTASSIUM 25 MG TABLET PO SCH (09:05)
[2020-01-03] MEDS: AMIODARONE HCL 200 MG TABLET PO SCH ×2 (09:05→17:04)
[2020-01-03] MEDS: APIXABAN 5 MG TABLET PO SCH ×2 (13:06→17:04)
[2020-01-03] MEDS: ATORVASTATIN CALCIUM 20MG TABLET PO SCH (20:38)
[2020-01-04] VITALS (7 sets, daily range): BP systolic 99–135; BP diastolic 41–76
[2020-01-04] MEDS: SODIUM CHLORIDE 0.9% INJ 3ML FLUSH IVF SCH ×3 (05:38→22:00)
[2020-01-04] MEDS: FUROSEMIDE 40MG/4ML VIAL IVP SCH ×2 (06:24→17:02)
[2020-01-04 06:47] LABS: HEMATOCRIT. 31.3 % (36.0-48.0); HEMOGLOBIN. 10.2 g/dL (12.0-16.0); MEAN CORPUSCULAR HEMOGLOBIN 31.2 pg (28.0-32.0); MEAN CORPUSCULAR VOLUME 96.3 fL (81.0-99.0); RED BLOOD CELL COUNT 3.25 mill/uL (4.2-5.4); RED CELL DISTRIBUTION WIDTH 17.9 % (11.6-14.6)
[2020-01-04 07:08] LABS: CHLORIDE 101 mEq/L (98-107)
[2020-01-04] MEDS: AMIODARONE HCL 200 MG TABLET PO SCH ×2 (08:54→17:02)
[2020-01-04] MEDS: APIXABAN 5 MG TABLET PO SCH ×2 (08:54→17:02)
[2020-01-04] MEDS: LOSARTAN POTASSIUM 25 MG TABLET PO SCH (08:54)
[2020-01-04 10:17] LABS: PLATELET 108 x1000/uL (130-400)
[2020-01-04 10:20] LABS: PLATELET ESTIMATE NORMAL
[2020-01-04] MEDS: ATORVASTATIN CALCIUM 20MG TABLET PO SCH (20:47)
[2020-01-05] VITALS (9 sets, daily range): BP systolic 105–120; BP diastolic 46–75
[2020-01-05] MEDS: SODIUM CHLORIDE 0.9% INJ 3ML FLUSH IVF SCH ×2 (06:00→14:00)
[2020-01-05] MEDS: FUROSEMIDE 40MG/4ML VIAL IVP SCH ×2 (06:16→17:19)
[2020-01-05 07:10] LABS: BASOPHILS % 0.4 % (0.0-2.0); EOSINOPHILS % 5.4 % (0.0-5.0); HEMATOCRIT. 30.6 % (36.0-48.0); HEMOGLOBIN. 9.6 g/dL (12.0-16.0); LYMPHOCYTES % 8.6 % (20.0-50.0); MEAN CORPUSCULAR HEMOGLOBIN 30.2 pg (28.0-32.0); MEAN CORPUSCULAR VOLUME 96.1 fL (81.0-99.0); MEAN PLATELET VOLUME 8.3 fl (7.4-10.4); MONOCYTES % 12.3 % (2.0-8.0); NEUTROPHILS % 73.3 % (40.0-76.0); PLATELET 130 x1000/uL (130-400); RED BLOOD CELL COUNT 3.18 mill/uL (4.2-5.4); RED CELL DISTRIBUTION WIDTH 18.2 % (11.6-14.6)
[2020-01-05 07:41] LABS: CHLORIDE 103 mEq/L (98-107)
[2020-01-05] MEDS: APIXABAN 5 MG TABLET PO SCH ×2 (08:49→17:18)
[2020-01-05] MEDS: LOSARTAN POTASSIUM 25 MG TABLET PO SCH (08:49)
[2020-01-05] MEDS: AMIODARONE HCL 200 MG TABLET PO SCH ×2 (08:49→17:18)
== END 2020-01-05 20:15 | DRG 291 ==
LOC: ER 12:15 → 5EST 13:52 → EDBEDREQSVC 13:54 → EDBEDREQ 13:54 → ENRESERV 14:26
PROVIDERS: ADMIT Internal Medicine; ATTEND Internal Medicine
DX: I11.0 Hypertensive heart disease with heart failure (principal); J96.02 Acute respiratory failure with hypercapnia; I48.20 Chronic atrial fibrillation, unspecified; E46 Unspecified protein-calorie malnutrition; E66.2 Morbid (severe) obesity with alveolar hypoventilation; J44.9 Chronic obstructive pulmonary disease, unspecified; I50.33 Acute on chronic diastolic (congestive) heart failure; I27.81 Cor pulmonale (chronic); I27.21 Secondary pulmonary arterial hypertension; D64.9 Anemia, unspecified; E78.5 Hyperlipidemia, unspecified; I25.10 Atherosclerotic heart disease of native coronary artery without angina pectoris; Z96.653 Presence of artificial knee joint, bilateral; I25.5 Ischemic cardiomyopathy; I07.9 Rheumatic tricuspid valve disease, unspecified; R74.0 Nonspecific elevation of levels of transaminase and lactic acid dehydrogenase [LDH]; E11.51 Type 2 diabetes mellitus with diabetic peripheral angiopathy without gangrene; I50.82 Biventricular heart failure; X58.XXXA Exposure to other specified factors, initial encounter; S80.822A Blister (nonthermal), left lower leg, initial encounter; S80.821A Blister (nonthermal), right lower leg, initial encounter; Z88.6 Allergy status to analgesic agent; Z79.01 Long term (current) use of anticoagulants; Z86.73 Personal history of transient ischemic attack (TIA), and cerebral infarction without residual deficits; Z87.891 Personal history of nicotine dependence; Z95.1 Presence of aortocoronary bypass graft; Z95.5 Presence of coronary angioplasty implant and graft; Z79.899 Other long term (current) drug therapy; Y93.89 Activity, other specified; Y92.89 Other specified places as the place of occurrence of the external cause; Z95.810 Presence of automatic (implantable) cardiac defibrillator; Z68.31 Body mass index [BMI] 31.0-31.9, adult; Y99.8 Other external cause status; Z71.3 Dietary counseling and surveillance; Z88.0 Allergy status to penicillin
CPT/HCPCS: 36415; 71045; 80048; 80053; 81003; 82550; 82553; 83735; 83880; 84484; 85025; 93005; 93306; 93971; 94640; 97162; 97530; 99291; J1940

== ENCOUNTER 2020-03-21 15:28 | Inpatient (IN) | payer MEDICARE, MEDICAID ==
[~2020-03-21] VITALS: Ht 124.5 cm; Wt 86.6 kg
[2020-03-21 16:07] LABS: HEMATOCRIT. 30.1 % (36.0-48.0); HEMOGLOBIN. 9.8 g/dL (12.0-16.0); MEAN CORPUSCULAR HEMOGLOBIN 30.4 pg (28.0-32.0); MEAN CORPUSCULAR VOLUME 93.1 fL (81.0-99.0); MEAN PLATELET VOLUME 7.9 fl (7.4-10.4); PLATELET 148 x1000/uL (130-400); RED BLOOD CELL COUNT 3.23 mill/uL (4.2-5.4); RED CELL DISTRIBUTION WIDTH 18.5 % (11.6-14.6)
[2020-03-21 16:12] LABS: CHLORIDE 103 mEq/L (98-107)
[2020-03-21] MEDS: LOSARTAN POTASSIUM 25 MG TABLET PO SCH (16:30)
[2020-03-21 16:55] LABS: PLATELET ESTIMATE NORMAL
[2020-03-21] MEDS: ASPIRIN 81MG TABLET PO SCH (17:25)
[2020-03-21] MEDS: FUROSEMIDE 40MG/4ML VIAL IVP SCH (17:25)
[2020-03-21] MEDS: APIXABAN 5 MG TABLET PO SCH (20:20)
[2020-03-21] MEDS: ATORVASTATIN CALCIUM 20MG TABLET PO SCH (21:19)
[2020-03-22 04:29] LABS: HEMATOCRIT. 26.4 % (36.0-48.0); HEMOGLOBIN. 8.5 g/dL (12.0-16.0); MEAN CORPUSCULAR HEMOGLOBIN 30.4 pg (28.0-32.0); MEAN PLATELET VOLUME 8.5 fl (7.4-10.4); PLATELET 127 x1000/uL (130-400); RED BLOOD CELL COUNT 2.81 mill/uL (4.2-5.4); RED CELL DISTRIBUTION WIDTH 18.3 % (11.6-14.6)
[2020-03-22 04:35] LABS: CHLORIDE 105 mEq/L (98-107)
[2020-03-22] MEDS: LOSARTAN POTASSIUM 25 MG TABLET PO SCH (09:00)
[2020-03-22] MEDS: AMIODARONE HCL 200 MG TABLET PO SCH ×2 (09:00→17:00)
[2020-03-22 10:30] VITALS: BP 103/55
[2020-03-22 10:38] LABS: PLATELET ESTIMATE NORMAL
[2020-03-22 10:47] VITALS: BP 126/55
[2020-03-22] MEDS ORDERED: LORAZEPAM 2MG/ML CPJ IV PRN (11:00)
[2020-03-22] MEDS ORDERED: ONDANSETRON HCL 4MG/2ML INJ IV PRN (11:00)
[2020-03-22] MEDS ORDERED: IPRATROPIUM/ALBUTEROL 0.5-3(2.5)MG/3ML NEB HHN PRN (11:00)
[2020-03-22] MEDS ORDERED: DOCUSATE SODIUM 100MG CAPSULE PO PRN (11:00)
[2020-03-22] MEDS ORDERED: DIPHENHYDRAMINE 50MG/ML VIAL IV PRN (11:00)
[2020-03-22] MEDS ORDERED: MAGNESIUM/ALUMINUM HYDROXIDE/SIMETHICONE 30ML UDC PO PRN (11:00)
[2020-03-22] MEDS ORDERED: MORPHINE SULFATE 2 MG/ML CPJ (NOT FOR IM USE) IV PRN (11:00)
[2020-03-22] MEDS ORDERED: HYDRALAZINE 20MG/ML VIAL IV PRN (11:00)
[2020-03-22] MEDS ORDERED: CLONIDINE 0.1MG TABLET PO PRN (11:00)
[2020-03-22] MEDS ORDERED: GUAIFENESIN 200MG/10ML SUGAR FREE UDC PO PRN (11:00)
[2020-03-22] MEDS: APIXABAN 5 MG TABLET PO SCH ×2 (11:52→17:24)
[2020-03-22] MEDS: ASPIRIN 81MG TABLET PO SCH (11:52)
[2020-03-22] MEDS: FUROSEMIDE 40MG/4ML VIAL IVP SCH ×3 (11:53→17:59)
[2020-03-22] MEDS ORDERED: DEXTROSE 50% WATER 50ML SYRINGE IV PRN (12:30)
[2020-03-22] MEDS: INSULIN LISPRO 100 UNITS/ML SUBCUT SCH ×4 (13:10→22:57)
[2020-03-22] MEDS: BLOOD SUGAR DIAGNOSTIC STRIP TEST SCH ×3 (13:39→21:00)
[2020-03-22] MEDS: SODIUM CHLORIDE 0.9% INJ 3ML FLUSH IVF SCH ×3 (14:37→22:57)
[2020-03-22 16:00] VITALS: BP_SYST 96; BP_DIAS 33; BP_DIAS 39
[2020-03-22 20:34] VITALS: BP 91/41
[2020-03-22] MEDS: ATORVASTATIN CALCIUM 20MG TABLET PO SCH (20:56)
[2020-03-22 23:56] VITALS: BP 132/65
[2020-03-23 04:00] VITALS: BP 112/53
[2020-03-23 06:23] LABS: HEMATOCRIT. 28.4 % (36.0-48.0); HEMOGLOBIN. 9.1 g/dL (12.0-16.0); MEAN CORPUSCULAR HEMOGLOBIN 30.1 pg (28.0-32.0); MEAN CORPUSCULAR VOLUME 93.6 fL (81.0-99.0); PLATELET 135 x1000/uL (130-400); RED BLOOD CELL COUNT 3.04 mill/uL (4.2-5.4); RED CELL DISTRIBUTION WIDTH 18.2 % (11.6-14.6)
[2020-03-23 06:30] LABS: CHLORIDE 105 mEq/L (98-107)
[2020-03-23] MEDS: BLOOD SUGAR DIAGNOSTIC STRIP TEST SCH ×4 (07:28→20:39)
[2020-03-23] MEDS: INSULIN LISPRO 100 UNITS/ML SUBCUT SCH ×4 (07:28→20:39)
[2020-03-23] MEDS: FUROSEMIDE 40MG/4ML VIAL IVP SCH ×2 (07:33→16:47)
[2020-03-23] MEDS: SODIUM CHLORIDE 0.9% INJ 3ML FLUSH IVF SCH ×3 (07:34→21:43)
[2020-03-23] MEDS: APIXABAN 5 MG TABLET PO SCH ×2 (08:20→16:47)
[2020-03-23] MEDS: AMIODARONE HCL 200 MG TABLET PO SCH (08:20)
[2020-03-23] MEDS: ASPIRIN 81MG TABLET PO SCH (08:20)
[2020-03-23] MEDS: LOSARTAN POTASSIUM 25 MG TABLET PO SCH (08:20)
[2020-03-23 10:55] VITALS: BP 97/46
[2020-03-23 16:00] VITALS: BP 127/59
[2020-03-23 16:30] LABS: PLATELET ESTIMATE NORMAL
[2020-03-23 20:00] VITALS: BP 99/37
[2020-03-23] MEDS: ATORVASTATIN CALCIUM 20MG TABLET PO SCH (20:45)
[2020-03-24] VITALS: BP 111/49
[2020-03-24 04:00] VITALS: BP 106/40
[2020-03-24] MEDS: FUROSEMIDE 40MG/4ML VIAL IVP SCH (06:23)
[2020-03-24] MEDS: BLOOD SUGAR DIAGNOSTIC STRIP TEST SCH ×2 (06:23→12:01)
[2020-03-24] MEDS: INSULIN LISPRO 100 UNITS/ML SUBCUT SCH ×2 (06:23→12:01)
[2020-03-24] MEDS: SODIUM CHLORIDE 0.9% INJ 3ML FLUSH IVF SCH (06:23)
[2020-03-24 06:45] LABS: HEMATOCRIT. 29.8 % (36.0-48.0); HEMOGLOBIN. 9.6 g/dL (12.0-16.0); MEAN CORPUSCULAR HEMOGLOBIN 30.2 pg (28.0-32.0); MEAN CORPUSCULAR VOLUME 93.6 fL (81.0-99.0); MEAN PLATELET VOLUME 8.2 fl (7.4-10.4); PLATELET 144 x1000/uL (130-400); RED BLOOD CELL COUNT 3.19 mill/uL (4.2-5.4); RED CELL DISTRIBUTION WIDTH 18.2 % (11.6-14.6)
[2020-03-24 07:19] LABS: CHLORIDE 102 mEq/L (98-107)
[2020-03-24 07:55] VITALS: BP 127/59
[2020-03-24] MEDS: APIXABAN 5 MG TABLET PO SCH (08:50)
[2020-03-24] MEDS: AMIODARONE HCL 200 MG TABLET PO SCH (08:50)
[2020-03-24] MEDS: ASPIRIN 81MG TABLET PO SCH (08:50)
[2020-03-24] MEDS: LOSARTAN POTASSIUM 25 MG TABLET PO SCH (08:50)
[2020-03-24 11:07] VITALS: BP 125/70
[2020-03-24] MEDS ORDERED: FUROSEMIDE 100MG/10ML VIAL IVP SCH (17:15)
[2020-03-24 22:07] LABS: PLATELET ESTIMATE NORMAL
== END 2020-03-24 13:45 | disposition home or self-care (01) | DRG 291 ==
LOC: ER 15:28 → MICUSO 19:37 → EDBEDREQ 19:40 → EDBEDREQTM 19:40 → 7WST 03-22 10:56 → 5WST 03-23 09:58
PROVIDERS: ADMIT Internal Medicine; ATTEND Internal Medicine
DX: I11.0 Hypertensive heart disease with heart failure (principal); J96.00 Acute respiratory failure, unspecified whether with hypoxia or hypercapnia; E44.1 Mild protein-calorie malnutrition; Z68.43 Body mass index [BMI] 50.0-59.9, adult; I48.20 Chronic atrial fibrillation, unspecified; I50.23 Acute on chronic systolic (congestive) heart failure; D64.9 Anemia, unspecified; E11.9 Type 2 diabetes mellitus without complications; E66.01 Morbid (severe) obesity due to excess calories; E78.5 Hyperlipidemia, unspecified; D69.6 Thrombocytopenia, unspecified; I25.10 Atherosclerotic heart disease of native coronary artery without angina pectoris; I25.5 Ischemic cardiomyopathy; I27.21 Secondary pulmonary arterial hypertension; I27.81 Cor pulmonale (chronic); D72.810 Lymphocytopenia; Z96.653 Presence of artificial knee joint, bilateral; I07.1 Rheumatic tricuspid insufficiency; J44.9 Chronic obstructive pulmonary disease, unspecified; E78.00 Pure hypercholesterolemia, unspecified; M10.9 Gout, unspecified; Z79.01 Long term (current) use of anticoagulants; Z79.02 Long term (current) use of antithrombotics/antiplatelets; Z87.891 Personal history of nicotine dependence; Z79.899 Other long term (current) drug therapy; Z88.8 Allergy status to other drugs, medicaments and biological substances; Z95.1 Presence of aortocoronary bypass graft; Z95.5 Presence of coronary angioplasty implant and graft; Z99.81 Dependence on supplemental oxygen; Z03.818 Encounter for observation for suspected exposure to other biological agents ruled out
CPT/HCPCS: 36415; 71045; 80048; 80053; 82962; 83036; 83735; 83880; 84484; 85025; 93005; 96374; 97162; 99285; J1815; J1940; U0003-CS

== ENCOUNTER 2020-03-25 00:29 | Emergency (ER) | payer MEDICARE, MEDICAID ==
[~2020-03-25] VITALS: Ht 180.3 cm; Wt 91.0 kg
[2020-03-25] MEDS ORDERED: TRANEXAMIC ACID 1,000 MG/10 ML TP ONE (01:00)
[2020-03-25 01:33] LABS: HEMATOCRIT 30.3 % (36.0-48.0); HEMOGLOBIN 9.9 g/dL (12.0-16.0); MEAN CORPUSCULAR HEMOGLOBIN 30.5 pg (28.0-32.0); MEAN CORPUSCULAR VOLUME 93.2 fL (81.0-99.0); PLATELET 153 x1000/uL (130-400); RED BLOOD CELL COUNT 3.25 mill/uL (4.2-5.4); RED CELL DISTRIBUTION WIDTH 18.3 % (11.6-14.6)
[2020-03-25 01:34] LABS: CHLORIDE 102 mEq/L (98-107)
[2020-03-25 01:39] VITALS: BP 118/54
[2020-03-25 02:05] LABS: INR 1.3; PROTHROMBIN TIME 13.7 sec (9.6-11.0)
== END 2020-03-25 03:29 | disposition home or self-care (01) ==
LOC: ER 00:29
DX: R04.0 Epistaxis (principal); I50.9 Heart failure, unspecified; J44.9 Chronic obstructive pulmonary disease, unspecified; E78.00 Pure hypercholesterolemia, unspecified; Z88.6 Allergy status to analgesic agent; Z95.1 Presence of aortocoronary bypass graft
CPT/HCPCS: 30901; 36415; 80053; 85027; 86850; 86900; 99283

== ENCOUNTER 2020-03-26 14:03 | Emergency (ER) | payer MEDICARE, MEDICAID ==
[~2020-03-26] VITALS: Ht 149.9 cm; Wt 82.0 kg
[2020-03-26] MEDS ORDERED: PETROLATUM,WHITE OPHTH OINT 3.5GM BOTHEYE SCH (14:45)
[2020-03-26] MEDS ORDERED: TRANEXAMIC ACID 1,000 MG/10 ML TP ONE (15:00)
[2020-03-26 16:28] VITALS: BP 153/56
== END 2020-03-26 16:29 | disposition home or self-care (01) ==
LOC: ER 14:10
DX: R04.0 Epistaxis (principal); I50.9 Heart failure, unspecified; J44.9 Chronic obstructive pulmonary disease, unspecified; E78.00 Pure hypercholesterolemia, unspecified; Z79.899 Other long term (current) drug therapy; Z88.6 Allergy status to analgesic agent
CPT/HCPCS: 30901; 99283; 99284

== ENCOUNTER 2020-03-27 10:35 | Inpatient (IN) | payer MEDICARE, MEDICAID ==
[~2020-03-27] VITALS: Ht 144.8 cm; Wt 73.0 kg
[2020-03-27 11:48] LABS: HEMOGLOBIN. 8.8 g/dL (12.0-16.0); MEAN CORPUSCULAR HEMOGLOBIN 30.3 pg (28.0-32.0); MEAN CORPUSCULAR VOLUME 92.9 fL (81.0-99.0); MEAN PLATELET VOLUME 9.2 fl (7.4-10.4); PLATELET 186 x1000/uL (130-400); RED CELL DISTRIBUTION WIDTH 18.3 % (11.6-14.6)
[2020-03-27 11:55] LABS: CHLORIDE 100 mEq/L (98-107)
[2020-03-27 12:06] LABS: BG BASE EXCESS 9.8 mmol/L (-2.0-2.0); BG DEOXYHEMOGLOBIN 11.8 % (0.0-5.0); BG FRACTION INSPIRED OXYGEN 28; BG HCO3 ACT 35.6 mmol/L (22.0-26.0); BG METHEMOGLOBIN 0.3 % (0.0-1.5); BG OXYGEN SATURATION 88.2 % (92.0-98.5); BG OXYHEMOGLOBIN 87.9 % (94.0-97.0); BG PCO2 56.4 mmHg (35.0-45.0); BG PH 7.418 (7.350-7.450); BG PO2 58.6 mmHg (75.0-100.0); BG SAMPLE SITE RIGHT RADIAL; BG TOTAL HEMOGLOBIN 8.9 g/dL (12.0-18.0); BG VENT MODE MASK - SIMPLE
[2020-03-27 12:35] LABS: PLATELET ESTIMATE NORMAL
[2020-03-27] MEDS ORDERED: DOBUTAMINE 500MG PREMIX 250 ML IV SCH (13:00)
[2020-03-27] MEDS ORDERED: DOBUTAMINE 500 MG in DEXT 5% WATER 210 ML IV SCH (13:00)
[2020-03-27] MEDS ORDERED: DOBUTAMINE HCL 500 MG in DEXTROSE 5% WATER 250 ML IV SCH (14:00)
[2020-03-27] MEDS: LOSARTAN POTASSIUM 25 MG TABLET PO SCH (14:05)
[2020-03-27] MEDS: FUROSEMIDE 100MG/10ML VIAL IV SCH (14:22)
[2020-03-27] MEDS: AMIODARONE HCL 200 MG TABLET PO SCH (14:26)
[2020-03-28] MEDS ORDERED: SODIUM CHLORIDE 0.9% 500 ML IV NR (00:15)
[2020-03-28] MEDS ORDERED: NOREPINEPHRINE 4MG/250ML PMX 250 ML IV PRN (00:15)
[2020-03-28] MEDS ORDERED: HYDROCODONE/ACETAMINOPHEN 5/325MG TABLET PO PRN (00:30)
[2020-03-28] MEDS ORDERED: LORAZEPAM 2MG/ML CPJ IV PRN (00:30)
[2020-03-28] MEDS ORDERED: NA PHOS,M-B/NA PHOS,DI-BA ENEMA 118ML PR PRN (00:30)
[2020-03-28] MEDS ORDERED: CLONIDINE 0.1MG TABLET PO PRN (00:30)
[2020-03-28] MEDS ORDERED: GUAIFENESIN 200MG/10ML SUGAR FREE UDC PO PRN (00:30)
[2020-03-28] MEDS ORDERED: IPRATROPIUM/ALBUTEROL 0.5-3(2.5)MG/3ML NEB NEB PRN (00:30)
[2020-03-28] MEDS ORDERED: MAGNESIUM/ALUMINUM HYDROXIDE/SIMETHICONE 30ML UDC PO PRN (00:30)
[2020-03-28] MEDS: FUROSEMIDE 100MG/10ML VIAL IV SCH ×3 (00:51→17:00)
[2020-03-28] MEDS: ATORVASTATIN CALCIUM 20MG TABLET PO SCH ×2 (02:36→23:28)
[2020-03-28] MEDS: AMIODARONE HCL 200 MG TABLET PO SCH ×3 (02:46→18:18)
[2020-03-28] MEDS: FUROSEMIDE 40MG/4ML VIAL IV SCH ×2 (08:28→10:10)
[2020-03-28] MEDS: LOSARTAN POTASSIUM 25 MG TABLET PO SCH (08:28)
[2020-03-28] MEDS: ASPIRIN 81MG EC TABLET PO SCH (08:51)
[2020-03-28] MEDS: ENOXAPARIN 40MG/0.4ML SYR SUBCUT SCH (08:51)
[2020-03-28] MEDS: DOBUTAMINE 500 MG in DEXT 5% WATER 210 ML IV SCH ×2 (10:10→21:54)
[2020-03-28] MEDS: DOPAMINE 800MG PREMIX (DOUBLE) 250 ML IV SCH ×2 (10:15→21:56)
[2020-03-28 11:22] LABS: HEMATOCRIT. 27.9 % (36.0-48.0); HEMOGLOBIN. 8.8 g/dL (12.0-16.0); MEAN CORPUSCULAR HEMOGLOBIN 29.2 pg (28.0-32.0); MEAN CORPUSCULAR VOLUME 93.1 fL (81.0-99.0); MEAN PLATELET VOLUME 8.9 fl (7.4-10.4); PLATELET 210 x1000/uL (130-400); RED BLOOD CELL COUNT 2.99 mill/uL (4.2-5.4); RED CELL DISTRIBUTION WIDTH 18.4 % (11.6-14.6)
[2020-03-28 11:42] LABS: CHLORIDE 101 mEq/L (98-107)
[2020-03-28 12:26] LABS: PLATELET ESTIMATE NORMAL
[2020-03-28] MEDS: ALBUMIN HUMAN 12.5G/250ML (5%) IV SCH ×2 (17:00→23:28)
[2020-03-28] MEDS ORDERED: ALBUTEROL 6.7GM HFA INHALER ORI SCH (18:00)
[2020-03-28] MEDS: MORPHINE SULFATE 2 MG/ML CPJ (NOT FOR IM USE) IV PRN (22:49)
[2020-03-28] MEDS: ONDANSETRON HCL 4MG/2ML INJ IV PRN (22:50)
[2020-03-29] VITALS (49 sets, daily range): BP systolic 46–137; BP diastolic 16–89
[2020-03-29] MEDS: ONDANSETRON HCL 4MG/2ML INJ IV PRN ×2 (01:53→11:09)
[2020-03-29 05:06] LABS: HEMATOCRIT. 24.5 % (36.0-48.0); MEAN CORPUSCULAR HEMOGLOBIN 30.2 pg (28.0-32.0); MEAN CORPUSCULAR VOLUME 92.8 fL (81.0-99.0); MEAN PLATELET VOLUME 8.2 fl (7.4-10.4); PLATELET 168 x1000/uL (130-400); RED BLOOD CELL COUNT 2.64 mill/uL (4.2-5.4)
[2020-03-29 05:14] LABS: CHLORIDE 102 mEq/L (98-107)
[2020-03-29 05:21] LABS: LDL CHOLESTEROL 40 mg/dL (5-100)
[2020-03-29 05:22] LABS: HDL CHOLESTEROL 57 mg/dL (40-59)
[2020-03-29 05:23] LABS: T4 FREE 1.41 ng/dL (0.76-1.46)
[2020-03-29] MEDS: ALBUMIN HUMAN 12.5G/250ML (5%) IV SCH ×2 (05:32→11:10)
[2020-03-29] MEDS: DOBUTAMINE 500 MG in DEXT 5% WATER 210 ML IV SCH ×2 (07:04→17:00)
[2020-03-29 07:20] LABS: PLATELET ESTIMATE NORMAL
[2020-03-29] MEDS: LOSARTAN POTASSIUM 25 MG TABLET PO SCH (09:00)
[2020-03-29] MEDS: AMIODARONE HCL 200 MG TABLET PO SCH ×2 (11:09→17:05)
[2020-03-29] MEDS: ENOXAPARIN 40MG/0.4ML SYR SUBCUT SCH (11:09)
[2020-03-29] MEDS: ASPIRIN 81MG EC TABLET PO SCH (11:09)
[2020-03-29] MEDS: FUROSEMIDE 100MG/10ML VIAL IV SCH ×2 (11:09→17:06)
[2020-03-29] MEDS: ATORVASTATIN CALCIUM 20MG TABLET PO SCH (20:42)
[2020-03-29] MEDS: MORPHINE SULFATE 2 MG/ML CPJ (NOT FOR IM USE) IV PRN (20:42)
[2020-03-29] MEDS: DOPAMINE 800MG PREMIX (DOUBLE) 250 ML IV SCH (22:19)
[2020-03-30] VITALS (91 sets, daily range): BP systolic 81–148; BP diastolic 33–80
[2020-03-30] MEDS: DIPHENHYDRAMINE 50MG/ML VIAL IV PRN ×2 (00:07→22:43)
[2020-03-30] MEDS: DOBUTAMINE 500 MG in DEXT 5% WATER 210 ML IV SCH ×2 (00:08→16:00)
[2020-03-30 05:39] LABS: HEMATOCRIT. 24.5 % (36.0-48.0); HEMOGLOBIN. 7.9 g/dL (12.0-16.0); MEAN CORPUSCULAR HEMOGLOBIN 29.9 pg (28.0-32.0); MEAN CORPUSCULAR VOLUME 92.9 fL (81.0-99.0); MEAN PLATELET VOLUME 8.6 fl (7.4-10.4); PLATELET 161 x1000/uL (130-400); RED BLOOD CELL COUNT 2.64 mill/uL (4.2-5.4); RED CELL DISTRIBUTION WIDTH 17.6 % (11.6-14.6)
[2020-03-30 05:41] LABS: CHLORIDE 100 mEq/L (98-107)
[2020-03-30] MEDS: ASPIRIN 81MG EC TABLET PO SCH (08:25)
[2020-03-30] MEDS: ENOXAPARIN 40MG/0.4ML SYR SUBCUT SCH (08:25)
[2020-03-30] MEDS: DOCUSATE SODIUM 100MG CAPSULE PO PRN (08:25)
[2020-03-30] MEDS: LOSARTAN POTASSIUM 25 MG TABLET PO SCH (08:25)
[2020-03-30] MEDS: AMIODARONE HCL 200 MG TABLET PO SCH ×2 (08:25→17:21)
[2020-03-30] MEDS: FUROSEMIDE 100MG/10ML VIAL IV SCH ×2 (08:26→17:21)
[2020-03-30] MEDS ORDERED: POTASSIUM CHLORIDE 20MEQ TABLET SR PO SCH (08:45)
[2020-03-30] MEDS: POTASSIUM CHLORIDE 20MEQ TABLET SR PO SCH (09:40)
[2020-03-30] MEDS ORDERED: IPRATROPIUM/ALBUTEROL 0.5-3(2.5)MG/3ML NEB HHN PRN (09:45)
[2020-03-30] MEDS: DOPAMINE 800MG PREMIX (DOUBLE) 250 ML IV SCH (10:32)
[2020-03-30] MEDS: BUDESONIDE 0.5MG/2ML NEB HHN SCH ×2 (12:47→20:14)
[2020-03-30] MEDS: IPRATROPIUM/ALBUTEROL 0.5-3(2.5)MG/3ML NEB HHN SCH ×3 (12:48→20:14)
[2020-03-30 13:12] LABS: PLATELET ESTIMATE NORMAL
[2020-03-30] MEDS: ATORVASTATIN CALCIUM 20MG TABLET PO SCH (21:27)
[2020-03-31] VITALS (93 sets, daily range): BP systolic 78–139; BP diastolic 27–71
[2020-03-31] MEDS: IPRATROPIUM/ALBUTEROL 0.5-3(2.5)MG/3ML NEB HHN SCH ×5 (00:03→21:14)
[2020-03-31] MEDS: DOPAMINE 800MG PREMIX (DOUBLE) 250 ML IV SCH (01:11)
[2020-03-31] MEDS: DOBUTAMINE 500 MG in DEXT 5% WATER 210 ML IV SCH (02:47)
[2020-03-31 05:45] LABS: HEMATOCRIT. 23.1 % (36.0-48.0); HEMOGLOBIN. 7.5 g/dL (12.0-16.0); MEAN CORPUSCULAR VOLUME 92.6 fL (81.0-99.0); PLATELET 164 x1000/uL (130-400)
[2020-03-31 05:54] LABS: CHLORIDE 101 mEq/L (98-107)
[2020-03-31] MEDS: ASPIRIN 81MG EC TABLET PO SCH (08:21)
[2020-03-31] MEDS: FUROSEMIDE 100MG/10ML VIAL IV SCH ×2 (08:21→17:00)
[2020-03-31] MEDS: AMIODARONE HCL 200 MG TABLET PO SCH ×2 (08:21→17:00)
[2020-03-31] MEDS: POTASSIUM CHLORIDE 20MEQ TABLET SR PO SCH (08:21)
[2020-03-31] MEDS: ENOXAPARIN 40MG/0.4ML SYR SUBCUT SCH (08:22)
[2020-03-31] MEDS: LOSARTAN POTASSIUM 25 MG TABLET PO SCH (08:22)
[2020-03-31] MEDS: BUDESONIDE 0.5MG/2ML NEB HHN SCH ×2 (09:16→21:17)
[2020-03-31] MEDS ORDERED: DOBUTAMINE 500 MG in DEXT 5% WATER 210 ML IV SCH (10:32)
[2020-03-31 13:53] LABS: PLATELET ESTIMATE NORMAL
[2020-03-31] MEDS: ATORVASTATIN CALCIUM 20MG TABLET PO SCH (20:17)
[2020-03-31] MEDS: MIDODRINE HCL 2.5MG TABLET PO SCH (20:17)
[2020-03-31] MEDS: CYCLOBENZAPRINE 10MG TABLET PO PRN (21:27)
[2020-04-01] VITALS (66 sets, daily range): BP systolic 65–139; BP diastolic 29–96
[2020-04-01] MEDS: IPRATROPIUM/ALBUTEROL 0.5-3(2.5)MG/3ML NEB HHN SCH ×5 (00:43→20:27)
[2020-04-01 06:09] LABS: CHLORIDE 101 mEq/L (98-107)
[2020-04-01 06:15] LABS: HEMATOCRIT. 26.6 % (36.0-48.0); HEMOGLOBIN. 8.6 g/dL (12.0-16.0); MEAN CORPUSCULAR HEMOGLOBIN 29.7 pg (28.0-32.0); MEAN CORPUSCULAR VOLUME 92.2 fL (81.0-99.0); MEAN PLATELET VOLUME 8.7 fl (7.4-10.4); PLATELET 205 x1000/uL (130-400); RED BLOOD CELL COUNT 2.89 mill/uL (4.2-5.4)
[2020-04-01 07:32] LABS: PLATELET ESTIMATE NORMAL
[2020-04-01] MEDS: POTASSIUM CHLORIDE 20MEQ TABLET SR PO SCH (09:00)
[2020-04-01] MEDS: AMIODARONE HCL 200 MG TABLET PO SCH ×2 (09:00→16:02)
[2020-04-01] MEDS: MIDODRINE HCL 2.5MG TABLET PO SCH ×3 (09:00→16:02)
[2020-04-01] MEDS: FUROSEMIDE 100MG/10ML VIAL IV SCH ×2 (09:00→16:02)
[2020-04-01] MEDS: ASPIRIN 81MG EC TABLET PO SCH (09:00)
[2020-04-01] MEDS: LOSARTAN POTASSIUM 25 MG TABLET PO SCH (09:00)
[2020-04-01] MEDS: ENOXAPARIN 40MG/0.4ML SYR SUBCUT SCH (09:01)
[2020-04-01] MEDS: BUDESONIDE 0.5MG/2ML NEB HHN SCH ×2 (09:04→20:28)
[2020-04-01 18:59] LABS: BG BASE EXCESS 14.7 mmol/L (-2.0-2.0); BG CARBOXYHEMOGLOBIN 0.2 % (0.5-1.5); BG DEOXYHEMOGLOBIN 8.6 % (0.0-5.0); BG FRACTION INSPIRED OXYGEN 50; BG HCO3 ACT 41.3 mmol/L (22.0-26.0); BG METHEMOGLOBIN 0.5 % (0.0-1.5); BG OXYGEN SATURATION 91.3 % (92.0-98.5); BG OXYHEMOGLOBIN 90.7 % (94.0-97.0); BG PCO2 65.1 mmHg (35.0-45.0); BG PO2 62.4 mmHg (75.0-100.0); BG SAMPLE SITE RIGHT RADIAL; BG TOTAL HEMOGLOBIN 9.3 g/dL (12.0-18.0); BG VENT MODE MASK - BIPAP; BG VENT RATE 16 set
[2020-04-01] MEDS: DIPHENHYDRAMINE 50MG/ML VIAL IV PRN (19:09)
[2020-04-01 20:29] LABS: BG BASE EXCESS 15.8 mmol/L (-2.0-2.0); BG CARBOXYHEMOGLOBIN 0.3 % (0.5-1.5); BG FRACTION INSPIRED OXYGEN 50; BG HCO3 ACT 44.1 mmol/L (22.0-26.0); BG METHEMOGLOBIN 0.3 % (0.0-1.5); BG OXYGEN SATURATION 89.9 % (92.0-98.5); BG OXYHEMOGLOBIN 89.4 % (94.0-97.0); BG PCO2 81.1 mmHg (35.0-45.0); BG PH 7.353 (7.350-7.450); BG PO2 64.2 mmHg (75.0-100.0); BG SAMPLE SITE RIGHT BRACHIAL; BG TOTAL HEMOGLOBIN 9.6 g/dL (12.0-18.0); BG VENT MODE MASK - BIPAP; BG VENT RATE 20 set
[2020-04-01] MEDS: ATORVASTATIN CALCIUM 20MG TABLET PO SCH (21:00)
[2020-04-01 21:43] LABS: BG BASE EXCESS 14.2 mmol/L (-2.0-2.0); BG BILEVEL POS AIRWAY PRESSURE 15/5; BG CARBOXYHEMOGLOBIN 0.3 % (0.5-1.5); BG DEOXYHEMOGLOBIN 8.4 % (0.0-5.0); BG FRACTION INSPIRED OXYGEN 50; BG HCO3 ACT 41.6 mmol/L (22.0-26.0); BG OXYGEN SATURATION 91.6 % (92.0-98.5); BG OXYHEMOGLOBIN 91.3 % (94.0-97.0); BG PCO2 71.9 mmHg (35.0-45.0); BG PO2 68.5 mmHg (75.0-100.0); BG SAMPLE SITE RIGHT RADIAL; BG TOTAL HEMOGLOBIN 9.6 g/dL (12.0-18.0); BG VENT MODE MASK - BIPAP; BG VENT RATE 20 set
[2020-04-02] VITALS (75 sets, daily range): BP systolic 84–164; BP diastolic 41–128
[2020-04-02] MEDS: IPRATROPIUM/ALBUTEROL 0.5-3(2.5)MG/3ML NEB HHN SCH ×6 (00:33→20:20)
[2020-04-02] MEDS: DIPHENHYDRAMINE 50MG/ML VIAL IV PRN ×2 (04:26→18:16)
[2020-04-02] MEDS ORDERED: LORAZEPAM 2MG/ML CPJ IV PRN (04:45)
[2020-04-02 05:13] LABS: HEMATOCRIT. 27.1 % (36.0-48.0); HEMOGLOBIN. 8.7 g/dL (12.0-16.0); MEAN CORPUSCULAR HEMOGLOBIN 29.6 pg (28.0-32.0); MEAN PLATELET VOLUME 8.1 fl (7.4-10.4); PLATELET 223 x1000/uL (130-400); RED BLOOD CELL COUNT 2.94 mill/uL (4.2-5.4); RED CELL DISTRIBUTION WIDTH 17.8 % (11.6-14.6)
[2020-04-02 05:22] LABS: CHLORIDE 101 mEq/L (98-107)
[2020-04-02 07:36] LABS: PLATELET ESTIMATE NORMAL
[2020-04-02] MEDS: DOPAMINE 800MG PREMIX (DOUBLE) 250 ML IV SCH (08:20)
[2020-04-02] MEDS: LOSARTAN POTASSIUM 25 MG TABLET PO SCH (08:21)
[2020-04-02] MEDS: BUDESONIDE 0.5MG/2ML NEB HHN SCH (08:22)
[2020-04-02] MEDS: POTASSIUM CHLORIDE 20MEQ TABLET SR PO SCH (08:34)
[2020-04-02 08:36] LABS: BG BASE EXCESS 13.2 mmol/L (-2.0-2.0); BG BILEVEL POS AIRWAY PRESSURE 15/5; BG CARBOXYHEMOGLOBIN 0.6 % (0.5-1.5); BG DEOXYHEMOGLOBIN 5.9 % (0.0-5.0); BG FRACTION INSPIRED OXYGEN 50; BG HCO3 ACT 40.4 mmol/L (22.0-26.0); BG METHEMOGLOBIN 0.3 % (0.0-1.5); BG OXYHEMOGLOBIN 93.2 % (94.0-97.0); BG PCO2 69.6 mmHg (35.0-45.0); BG PH 7.382 (7.350-7.450); BG PO2 74.7 mmHg (75.0-100.0); BG SAMPLE SITE RIGHT RADIAL; BG TOTAL HEMOGLOBIN 9.4 g/dL (12.0-18.0); BG VENT MODE MASK - BIPAP; BG VENT RATE 20 set
[2020-04-02] MEDS: AMIODARONE HCL 200 MG TABLET PO SCH ×2 (09:35→16:33)
[2020-04-02] MEDS: ASPIRIN 81MG EC TABLET PO SCH (09:35)
[2020-04-02] MEDS: MIDODRINE HCL 2.5MG TABLET PO SCH ×3 (09:35→16:33)
[2020-04-02] MEDS: ENOXAPARIN 40MG/0.4ML SYR SUBCUT SCH (09:38)
[2020-04-02] MEDS: FUROSEMIDE 100MG/10ML VIAL IV SCH ×2 (09:52→17:01)
[2020-04-02] MEDS ORDERED: POTASSIUM CHLORIDE INJ 40 MEQ in DEXT 5% WATER 250 ML IV ONE (10:00)
[2020-04-02] MEDS: LORAZEPAM 2MG/ML CPJ IV PRN ×3 (10:21→21:10)
[2020-04-02] MEDS: ATORVASTATIN CALCIUM 20MG TABLET PO SCH (20:55)
[2020-04-03] VITALS (43 sets, daily range): BP systolic 61–136; BP diastolic 32–75
[2020-04-03] MEDS: IPRATROPIUM/ALBUTEROL 0.5-3(2.5)MG/3ML NEB HHN SCH ×6 (00:05→19:54)
[2020-04-03] MEDS: LORAZEPAM 2MG/ML CPJ IV PRN ×2 (01:10→05:10)
[2020-04-03] MEDS: DIPHENHYDRAMINE 50MG/ML VIAL IV PRN (02:00)
[2020-04-03] MEDS: DOPAMINE 800MG PREMIX (DOUBLE) 250 ML IV SCH (04:45)
[2020-04-03 06:27] LABS: HEMATOCRIT. 29.9 % (36.0-48.0); HEMOGLOBIN. 9.7 g/dL (12.0-16.0); MEAN CORPUSCULAR HEMOGLOBIN 29.9 pg (28.0-32.0); MEAN CORPUSCULAR VOLUME 92.3 fL (81.0-99.0); MEAN PLATELET VOLUME 8.2 fl (7.4-10.4); PLATELET 245 x1000/uL (130-400); RED BLOOD CELL COUNT 3.24 mill/uL (4.2-5.4); RED CELL DISTRIBUTION WIDTH 17.8 % (11.6-14.6)
[2020-04-03 06:40] LABS: CHLORIDE 100 mEq/L (98-107)
[2020-04-03] MEDS: POTASSIUM CHLORIDE 20MEQ TABLET SR PO SCH (09:24)
[2020-04-03] MEDS: FUROSEMIDE 100MG/10ML VIAL IV SCH ×2 (09:24→17:57)
[2020-04-03] MEDS: ASPIRIN 81MG EC TABLET PO SCH (09:24)
[2020-04-03] MEDS: AMIODARONE HCL 200 MG TABLET PO SCH ×2 (09:24→17:57)
[2020-04-03] MEDS: LOSARTAN POTASSIUM 25 MG TABLET PO SCH (09:24)
[2020-04-03] MEDS: MIDODRINE HCL 2.5MG TABLET PO SCH (09:25)
[2020-04-03] MEDS: ENOXAPARIN 40MG/0.4ML SYR SUBCUT SCH (09:25)
[2020-04-03] MEDS ORDERED: ALBUMIN HUMAN 25GM/100ML (25%) IV NR (10:45)
[2020-04-03] MEDS ORDERED: POTASSIUM CHLORIDE 20MEQ TABLET SR PO NR (10:45)
[2020-04-03] MEDS ORDERED: METOLAZONE 2.5MG TABLET PO SCH (11:00)
[2020-04-03 12:21] LABS: PLATELET ESTIMATE NORMAL
[2020-04-03] MEDS: MIDODRINE HCL 5MG TABLET PO SCH ×2 (12:32→17:57)
[2020-04-03] MEDS: APIXABAN 5 MG TABLET PO SCH (17:57)
[2020-04-03] MEDS: BUDESONIDE 0.5MG/2ML NEB HHN SCH (19:54)
[2020-04-03] MEDS: ATORVASTATIN CALCIUM 20MG TABLET PO SCH (21:35)
[2020-04-04] VITALS (72 sets, daily range): BP systolic 80–151; BP diastolic 34–111
[2020-04-04] MEDS: IPRATROPIUM/ALBUTEROL 0.5-3(2.5)MG/3ML NEB HHN SCH ×5 (00:54→20:06)
[2020-04-04 05:53] LABS: CHLORIDE 96 mEq/L (98-107)
[2020-04-04 05:57] LABS: HEMATOCRIT. 32.4 % (36.0-48.0); HEMOGLOBIN. 10.5 g/dL (12.0-16.0); MEAN CORPUSCULAR HEMOGLOBIN 29.5 pg (28.0-32.0); MEAN CORPUSCULAR VOLUME 91.5 fL (81.0-99.0); MEAN PLATELET VOLUME 8.1 fl (7.4-10.4); PLATELET 316 x1000/uL (130-400); RED BLOOD CELL COUNT 3.55 mill/uL (4.2-5.4); RED CELL DISTRIBUTION WIDTH 17.2 % (11.6-14.6)
[2020-04-04] MEDS: FUROSEMIDE 100MG/10ML VIAL IV SCH (08:45)
[2020-04-04] MEDS: AMIODARONE HCL 200 MG TABLET PO SCH (08:46)
[2020-04-04] MEDS: LOSARTAN POTASSIUM 25 MG TABLET PO SCH (08:46)
[2020-04-04] MEDS: ASPIRIN 81MG EC TABLET PO SCH (08:46)
[2020-04-04] MEDS: POTASSIUM CHLORIDE 20MEQ TABLET SR PO SCH (08:46)
[2020-04-04] MEDS: APIXABAN 5 MG TABLET PO SCH ×2 (08:47→16:43)
[2020-04-04] MEDS: MIDODRINE HCL 5MG TABLET PO SCH ×3 (08:47→16:43)
[2020-04-04] MEDS: BUDESONIDE 0.5MG/2ML NEB HHN SCH ×2 (09:17→20:07)
[2020-04-04 10:37] LABS: BG BASE EXCESS 18.9 mmol/L (-2.0-2.0); BG CARBOXYHEMOGLOBIN 0.2 % (0.5-1.5); BG DEOXYHEMOGLOBIN 7.3 % (0.0-5.0); BG FRACTION INSPIRED OXYGEN 42; BG HCO3 ACT 46.6 mmol/L (22.0-26.0); BG METHEMOGLOBIN 0.4 % (0.0-1.5); BG OXYGEN SATURATION 92.7 % (92.0-98.5); BG OXYHEMOGLOBIN 92.1 % (94.0-97.0); BG PCO2 73.3 mmHg (35.0-45.0); BG PH 7.421 (7.350-7.450); BG PO2 68.5 mmHg (75.0-100.0); BG SAMPLE SITE RIGHT RADIAL; BG TOTAL HEMOGLOBIN 10.9 g/dL (12.0-18.0); BG VENT MODE NASAL CANNULA
[2020-04-04] MEDS ORDERED: ALBUMIN HUMAN 12.5G/250ML (5%) IV NR (11:00)
[2020-04-04 11:14] LABS: NUCLEATED RED BLOOD CELLS 1 /100 WBC; PLATELET ESTIMATE NORMAL
[2020-04-04] MEDS: CYCLOBENZAPRINE 10MG TABLET PO PRN (12:19)
[2020-04-04] MEDS: DIPHENHYDRAMINE 50MG/ML VIAL IV PRN (12:19)
[2020-04-04] MEDS: FUROSEMIDE 40MG/4ML VIAL IV SCH (16:43)
[2020-04-04] MEDS: ATORVASTATIN CALCIUM 20MG TABLET PO SCH (20:33)
[2020-04-04] MEDS: DOPAMINE 800MG PREMIX (DOUBLE) 250 ML IV SCH (20:34)
[2020-04-04] MEDS: LORAZEPAM 2MG/ML CPJ IV PRN (21:44)
[2020-04-05] VITALS (83 sets, daily range): BP systolic 52–162; BP diastolic 31–98
[2020-04-05] MEDS: IPRATROPIUM/ALBUTEROL 0.5-3(2.5)MG/3ML NEB HHN SCH ×4 (00:22→21:15)
[2020-04-05 05:36] LABS: BASOPHILS % 0.3 % (0.0-2.0); EOSINOPHILS % 10.2 % (0.0-5.0); HEMATOCRIT. 31.1 % (36.0-48.0); HEMOGLOBIN. 10.2 g/dL (12.0-16.0); LYMPHOCYTES % 7.1 % (20.0-50.0); MEAN CORPUSCULAR HEMOGLOBIN 29.7 pg (28.0-32.0); MEAN CORPUSCULAR VOLUME 90.5 fL (81.0-99.0); MONOCYTES % 12.2 % (2.0-8.0); NEUTROPHILS % 70.2 % (40.0-76.0); PLATELET 301 x1000/uL (130-400); RED BLOOD CELL COUNT 3.44 mill/uL (4.2-5.4); RED CELL DISTRIBUTION WIDTH 17.6 % (11.6-14.6)
[2020-04-05 05:41] LABS: CHLORIDE 93 mEq/L (98-107)
[2020-04-05] MEDS: FUROSEMIDE 40MG/4ML VIAL IV SCH ×2 (09:01→16:38)
[2020-04-05] MEDS: DOPAMINE 800MG PREMIX (DOUBLE) 250 ML IV SCH (09:01)
[2020-04-05] MEDS: ASPIRIN 81MG EC TABLET PO SCH (09:02)
[2020-04-05] MEDS: APIXABAN 5 MG TABLET PO SCH ×2 (09:02→16:38)
[2020-04-05] MEDS: POTASSIUM CHLORIDE 20MEQ TABLET SR PO SCH (09:02)
[2020-04-05] MEDS: MIDODRINE HCL 5MG TABLET PO SCH ×3 (09:02→16:38)
[2020-04-05 09:04] LABS: BG BASE EXCESS 21.8 mmol/L (-2.0-2.0); BG CARBOXYHEMOGLOBIN 0.1 % (0.5-1.5); BG DEOXYHEMOGLOBIN 6.8 % (0.0-5.0); BG FRACTION INSPIRED OXYGEN 40; BG HCO3 ACT 50.7 mmol/L (22.0-26.0); BG METHEMOGLOBIN 0.1 % (0.0-1.5); BG OXYGEN SATURATION 93.2 % (92.0-98.5); BG PCO2 81.4 mmHg (35.0-45.0); BG PH 7.412 (7.350-7.450); BG PO2 68.1 mmHg (75.0-100.0); BG SAMPLE SITE RIGHT RADIAL; BG TOTAL HEMOGLOBIN 11.8 g/dL (12.0-18.0); BG VENT MODE NASAL CANNULA
[2020-04-05] MEDS: BUDESONIDE 0.5MG/2ML NEB HHN SCH (15:05)
[2020-04-05] MEDS: CYCLOBENZAPRINE 10MG TABLET PO PRN (15:17)
[2020-04-05] MEDS: DIPHENHYDRAMINE 50MG/ML VIAL IV PRN (21:14)
[2020-04-05] MEDS: ATORVASTATIN CALCIUM 20MG TABLET PO SCH (21:14)
[2020-04-05] MEDS: MORPHINE SULFATE 2 MG/ML CPJ (NOT FOR IM USE) IV PRN (22:47)
[2020-04-06] VITALS (79 sets, daily range): BP systolic 65–131; BP diastolic 21–103
[2020-04-06] MEDS: BUDESONIDE 0.5MG/2ML NEB HHN SCH ×2 (00:25→16:37)
[2020-04-06] MEDS: IPRATROPIUM/ALBUTEROL 0.5-3(2.5)MG/3ML NEB HHN SCH ×6 (04:57→23:32)
[2020-04-06 06:04] LABS: HEMATOCRIT 32.1 % (36.0-48.0); HEMOGLOBIN 10.3 g/dL (12.0-16.0); MEAN CORPUSCULAR HEMOGLOBIN 29.1 pg (28.0-32.0); MEAN CORPUSCULAR VOLUME 90.3 fL (81.0-99.0); PLATELET 346 x1000/uL (130-400); RED BLOOD CELL COUNT 3.56 mill/uL (4.2-5.4); RED CELL DISTRIBUTION WIDTH 17.2 % (11.6-14.6)
[2020-04-06 06:10] LABS: CHLORIDE 91 mEq/L (98-107)
[2020-04-06] MEDS: FUROSEMIDE 40MG/4ML VIAL IV SCH ×2 (06:20→17:51)
[2020-04-06] MEDS: ASPIRIN 81MG EC TABLET PO SCH (08:33)
[2020-04-06] MEDS: MIDODRINE HCL 5MG TABLET PO SCH ×3 (08:33→17:51)
[2020-04-06] MEDS: DOPAMINE 800MG PREMIX (DOUBLE) 250 ML IV SCH (08:33)
[2020-04-06] MEDS: APIXABAN 5 MG TABLET PO SCH ×2 (08:33→17:51)
[2020-04-06] MEDS: POTASSIUM CHLORIDE 20MEQ TABLET SR PO SCH (08:33)
[2020-04-06] MEDS ORDERED: POTASSIUM CHLORIDE 20MEQ TABLET SR PO NR (09:30)
[2020-04-06] MEDS: ATORVASTATIN CALCIUM 20MG TABLET PO SCH (21:13)
[2020-04-07] VITALS (105 sets, daily range): BP systolic 46–157; BP diastolic 19–81
[2020-04-07] MEDS: MORPHINE SULFATE 2 MG/ML CPJ (NOT FOR IM USE) IV PRN ×2 (00:55→19:36)
[2020-04-07] MEDS: IPRATROPIUM/ALBUTEROL 0.5-3(2.5)MG/3ML NEB HHN SCH ×5 (04:19→20:35)
[2020-04-07 06:12] LABS: BASOPHILS % 0.4 % (0.0-2.0); EOSINOPHILS % 7.9 % (0.0-5.0); HEMATOCRIT. 32.5 % (36.0-48.0); HEMOGLOBIN. 10.6 g/dL (12.0-16.0); LYMPHOCYTES % 9.2 % (20.0-50.0); MEAN CORPUSCULAR HEMOGLOBIN 29.3 pg (28.0-32.0); MEAN CORPUSCULAR VOLUME 89.9 fL (81.0-99.0); MEAN PLATELET VOLUME 8.3 fl (7.4-10.4); MONOCYTES % 12.1 % (2.0-8.0); NEUTROPHILS % 70.4 % (40.0-76.0); PLATELET 320 x1000/uL (130-400); RED BLOOD CELL COUNT 3.61 mill/uL (4.2-5.4); RED CELL DISTRIBUTION WIDTH 17.5 % (11.6-14.6)
[2020-04-07 06:18] LABS: CHLORIDE 95 mEq/L (98-107)
[2020-04-07] MEDS: DOPAMINE 800MG PREMIX (DOUBLE) 250 ML IV SCH (07:45)
[2020-04-07] MEDS: ASPIRIN 81MG EC TABLET PO SCH (08:43)
[2020-04-07] MEDS: FUROSEMIDE 40MG/4ML VIAL IV SCH ×2 (08:43→16:57)
[2020-04-07] MEDS: POTASSIUM CHLORIDE 20MEQ TABLET SR PO SCH (08:43)
[2020-04-07] MEDS: MIDODRINE HCL 5MG TABLET PO SCH ×2 (08:44→12:57)
[2020-04-07] MEDS: APIXABAN 5 MG TABLET PO SCH ×2 (08:44→16:57)
[2020-04-07] MEDS: CYCLOBENZAPRINE 10MG TABLET PO PRN (14:09)
[2020-04-07] MEDS ORDERED: ALBUMIN HUMAN 12.5G/250ML (5%) IV NR (16:15)
[2020-04-07] MEDS ORDERED: MIDODRINE HCL 2.5MG TABLET PO NR (16:15)
[2020-04-07] MEDS: ATORVASTATIN CALCIUM 20MG TABLET PO SCH (21:49)
[2020-04-07] MEDS: MIDODRINE HCL 2.5MG TABLET PO SCH (21:50)
[2020-04-08] VITALS (86 sets, daily range): BP systolic 72–140; BP diastolic 20–79
[2020-04-08] MEDS: CYCLOBENZAPRINE 10MG TABLET PO PRN (00:06)
[2020-04-08] MEDS: IPRATROPIUM/ALBUTEROL 0.5-3(2.5)MG/3ML NEB HHN SCH ×6 (00:07→20:23)
[2020-04-08] MEDS: ONDANSETRON HCL 4MG/2ML INJ IV PRN (04:13)
[2020-04-08] MEDS: DIPHENHYDRAMINE 50MG/ML VIAL IV PRN (04:13)
[2020-04-08 05:51] LABS: CHLORIDE 93 mEq/L (98-107)
[2020-04-08 05:52] LABS: BASOPHILS % 0.4 % (0.0-2.0); HEMATOCRIT. 30.5 % (36.0-48.0); LYMPHOCYTES % 9.5 % (20.0-50.0); MEAN CORPUSCULAR HEMOGLOBIN 29.4 pg (28.0-32.0); MEAN CORPUSCULAR VOLUME 89.5 fL (81.0-99.0); MEAN PLATELET VOLUME 8.5 fl (7.4-10.4); MONOCYTES % 10.4 % (2.0-8.0); NEUTROPHILS % 70.7 % (40.0-76.0); PLATELET 300 x1000/uL (130-400); RED BLOOD CELL COUNT 3.41 mill/uL (4.2-5.4); RED CELL DISTRIBUTION WIDTH 17.6 % (11.6-14.6)
[2020-04-08] MEDS: MIDODRINE HCL 2.5MG TABLET PO SCH ×3 (06:16→21:11)
[2020-04-08] MEDS: FUROSEMIDE 40MG/4ML VIAL IV SCH ×2 (06:17→16:49)
[2020-04-08] MEDS: MORPHINE SULFATE 2 MG/ML CPJ (NOT FOR IM USE) IV PRN ×2 (06:44→21:14)
[2020-04-08] MEDS: APIXABAN 5 MG TABLET PO SCH ×2 (08:31→16:49)
[2020-04-08] MEDS: DOCUSATE SODIUM 100MG CAPSULE PO PRN (08:31)
[2020-04-08] MEDS: POTASSIUM CHLORIDE 20MEQ TABLET SR PO SCH (08:31)
[2020-04-08] MEDS: DOPAMINE 800MG PREMIX (DOUBLE) 250 ML IV SCH (08:31)
[2020-04-08] MEDS: ASPIRIN 81MG EC TABLET PO SCH (08:31)
[2020-04-08] MEDS: ATORVASTATIN CALCIUM 20MG TABLET PO SCH (20:47)
[2020-04-09] VITALS (87 sets, daily range): BP systolic 70–138; BP diastolic 19–72
[2020-04-09] MEDS: IPRATROPIUM/ALBUTEROL 0.5-3(2.5)MG/3ML NEB HHN SCH ×6 (00:08→20:45)
[2020-04-09] MEDS: MIDODRINE HCL 2.5MG TABLET PO SCH ×3 (05:13→21:27)
[2020-04-09 06:00] LABS: BASOPHILS % 0.3 % (0.0-2.0); EOSINOPHILS % 10.2 % (0.0-5.0); HEMATOCRIT. 34.1 % (36.0-48.0); LYMPHOCYTES % 8.6 % (20.0-50.0); MEAN CORPUSCULAR HEMOGLOBIN 29.2 pg (28.0-32.0); MEAN CORPUSCULAR VOLUME 90.5 fL (81.0-99.0); MEAN PLATELET VOLUME 8.4 fl (7.4-10.4); MONOCYTES % 8.4 % (2.0-8.0); NEUTROPHILS % 72.5 % (40.0-76.0); PLATELET 364 x1000/uL (130-400); RED BLOOD CELL COUNT 3.77 mill/uL (4.2-5.4); RED CELL DISTRIBUTION WIDTH 17.8 % (11.6-14.6)
[2020-04-09 06:09] LABS: CHLORIDE 95 mEq/L (98-107)
[2020-04-09] MEDS: FUROSEMIDE 40MG/4ML VIAL IV SCH ×2 (07:03→16:44)
[2020-04-09] MEDS: POTASSIUM CHLORIDE 20MEQ TABLET SR PO SCH (09:11)
[2020-04-09] MEDS: APIXABAN 5 MG TABLET PO SCH ×2 (09:11→16:44)
[2020-04-09] MEDS: ASPIRIN 81MG EC TABLET PO SCH (09:11)
[2020-04-09] MEDS: DOPAMINE 800MG PREMIX (DOUBLE) 250 ML IV SCH (09:13)
[2020-04-09] MEDS: CYCLOBENZAPRINE 10MG TABLET PO PRN (10:06)
[2020-04-09] MEDS: DOCUSATE SODIUM 100MG CAPSULE PO PRN (10:06)
[2020-04-09] MEDS: ATORVASTATIN CALCIUM 20MG TABLET PO SCH (20:18)
[2020-04-09] MEDS: MORPHINE SULFATE 2 MG/ML CPJ (NOT FOR IM USE) IV PRN (20:19)
[2020-04-10] VITALS (97 sets, daily range): BP systolic 69–137; BP diastolic 28–101
[2020-04-10] MEDS: CYCLOBENZAPRINE 10MG TABLET PO PRN ×2 (03:33→21:30)
[2020-04-10] MEDS: DOCUSATE SODIUM 100MG CAPSULE PO PRN ×2 (03:33→08:29)
[2020-04-10] MEDS: IPRATROPIUM/ALBUTEROL 0.5-3(2.5)MG/3ML NEB HHN SCH ×6 (04:21→20:40)
[2020-04-10] MEDS: MIDODRINE HCL 2.5MG TABLET PO SCH ×3 (06:06→21:51)
[2020-04-10] MEDS: FUROSEMIDE 40MG/4ML VIAL IV SCH ×2 (06:28→18:09)
[2020-04-10 07:17] LABS: BASOPHILS % 0.3 % (0.0-2.0); EOSINOPHILS % 6.4 % (0.0-5.0); HEMOGLOBIN. 10.3 g/dL (12.0-16.0); LYMPHOCYTES % 8.4 % (20.0-50.0); MONOCYTES % 9.4 % (2.0-8.0); NEUTROPHILS % 75.5 % (40.0-76.0); PLATELET 361 x1000/uL (130-400); RED BLOOD CELL COUNT 3.56 mill/uL (4.2-5.4); RED CELL DISTRIBUTION WIDTH 17.4 % (11.6-14.6)
[2020-04-10 07:20] LABS: CHLORIDE 95 mEq/L (98-107)
[2020-04-10] MEDS: ASPIRIN 81MG EC TABLET PO SCH (08:29)
[2020-04-10] MEDS: POTASSIUM CHLORIDE 20MEQ TABLET SR PO SCH (08:29)
[2020-04-10] MEDS: APIXABAN 5 MG TABLET PO SCH ×2 (08:29→18:09)
[2020-04-10] MEDS: DOPAMINE 800MG PREMIX (DOUBLE) 250 ML IV SCH (08:29)
[2020-04-10] MEDS: MORPHINE SULFATE 2 MG/ML CPJ (NOT FOR IM USE) IV PRN (10:00)
[2020-04-10] MEDS ORDERED: LACTULOSE 20G/30ML UDC PO SCH (11:00)
[2020-04-10] MEDS: FLUTICASONE PROPIONATE 50MCG/SPRAY BOTTLE BOTHNSTRLS SCH ×2 (11:20→21:50)
[2020-04-10] MEDS: ONDANSETRON HCL 4MG/2ML INJ IV PRN (11:31)
[2020-04-10] MEDS: BUDESONIDE 0.5MG/2ML NEB HHN SCH ×2 (12:12→20:40)
[2020-04-10] MEDS: ATORVASTATIN CALCIUM 20MG TABLET PO SCH (21:49)
[2020-04-10] MEDS: DIPHENHYDRAMINE 50MG/ML VIAL IV PRN (22:45)
[2020-04-10] MEDS ORDERED: MORPHINE SULFATE 2 MG/ML CPJ (NOT FOR IM USE) IV PRN (23:46)
[2020-04-11] VITALS (76 sets, daily range): BP systolic 77–173; BP diastolic 37–102
[2020-04-11] MEDS: IPRATROPIUM/ALBUTEROL 0.5-3(2.5)MG/3ML NEB HHN SCH ×5 (00:20→16:27)
[2020-04-11] MEDS: ONDANSETRON HCL 4MG/2ML INJ IV PRN (04:11)
[2020-04-11 05:51] LABS: HEMATOCRIT. 29.9 % (36.0-48.0); HEMOGLOBIN. 9.8 g/dL (12.0-16.0); MEAN CORPUSCULAR HEMOGLOBIN 29.4 pg (28.0-32.0); MEAN CORPUSCULAR VOLUME 89.8 fL (81.0-99.0); MEAN PLATELET VOLUME 8.6 fl (7.4-10.4); PLATELET 325 x1000/uL (130-400); RED BLOOD CELL COUNT 3.33 mill/uL (4.2-5.4); RED CELL DISTRIBUTION WIDTH 17.8 % (11.6-14.6)
[2020-04-11 05:53] LABS: CHLORIDE 95 mEq/L (98-107)
[2020-04-11] MEDS: MIDODRINE HCL 2.5MG TABLET PO SCH ×2 (06:00→14:26)
[2020-04-11 08:02] LABS: PLATELET ESTIMATE NORMAL
[2020-04-11] MEDS: FUROSEMIDE 40MG/4ML VIAL IV SCH ×2 (08:20→17:41)
[2020-04-11] MEDS: ASPIRIN 81MG EC TABLET PO SCH (08:21)
[2020-04-11] MEDS: FLUTICASONE PROPIONATE 50MCG/SPRAY BOTTLE BOTHNSTRLS SCH ×2 (08:21→20:01)
[2020-04-11] MEDS: DOPAMINE 800MG PREMIX (DOUBLE) 250 ML IV SCH (08:21)
[2020-04-11] MEDS: POTASSIUM CHLORIDE 20MEQ TABLET SR PO SCH (08:21)
[2020-04-11] MEDS: DIPHENHYDRAMINE 50MG/ML VIAL IV PRN (08:24)
[2020-04-11] MEDS: CYCLOBENZAPRINE 10MG TABLET PO PRN (08:24)
[2020-04-11] MEDS: APIXABAN 5 MG TABLET PO SCH ×2 (08:24→17:41)
[2020-04-11] MEDS: BUDESONIDE 0.5MG/2ML NEB HHN SCH (09:30)
[2020-04-11] MEDS: MORPHINE SULFATE 2 MG/ML CPJ (NOT FOR IM USE) IV PRN ×2 (09:50)
[2020-04-11] MEDS: ATORVASTATIN CALCIUM 20MG TABLET PO SCH (20:00)
== END 2020-04-11 21:00 | disposition short-term general hospital (02) | DRG 291 ==
LOC: ER 10:35 → ENRESERV 22:05 → CANRESERV 22:05 → MICUSO 22:26 → CVICU 03-29 08:26
PROVIDERS: ADMIT Internal Medicine; ATTEND Internal Medicine
PROC: 02HV33Z Insertion of Infusion Device into Superior Vena Cava, Percutaneous Approach (ICD-10-PCS; principal; 2020-03-29)
PROC: B548ZZA Ultrasonography of Superior Vena Cava, Guidance (ICD-10-PCS; 2020-03-29)
PROC: 5A09357 Assistance with Respiratory Ventilation, Less than 24 Consecutive Hours, Continuous Positive Airway Pressure (ICD-10-PCS; 2020-03-30)
PROC: 5A09457 Assistance with Respiratory Ventilation, 24-96 Consecutive Hours, Continuous Positive Airway Pressure (ICD-10-PCS; 2020-04-01)
PROC: 5A09357 Assistance with Respiratory Ventilation, Less than 24 Consecutive Hours, Continuous Positive Airway Pressure (ICD-10-PCS; 2020-04-04)
PROC: 5A09357 Assistance with Respiratory Ventilation, Less than 24 Consecutive Hours, Continuous Positive Airway Pressure (ICD-10-PCS; 2020-04-05)
PROC: 5A09357 Assistance with Respiratory Ventilation, Less than 24 Consecutive Hours, Continuous Positive Airway Pressure (ICD-10-PCS; 2020-04-06)
PROC: 5A09357 Assistance with Respiratory Ventilation, Less than 24 Consecutive Hours, Continuous Positive Airway Pressure (ICD-10-PCS; 2020-04-07)
DX: I11.0 Hypertensive heart disease with heart failure (principal); J96.01 Acute respiratory failure with hypoxia; J96.02 Acute respiratory failure with hypercapnia; I48.20 Chronic atrial fibrillation, unspecified; E44.1 Mild protein-calorie malnutrition; D68.59 Other primary thrombophilia; E87.2 Acidosis; G93.40 Encephalopathy, unspecified; Z68.41 Body mass index [BMI] 40.0-44.9, adult; I50.23 Acute on chronic systolic (congestive) heart failure; J44.9 Chronic obstructive pulmonary disease, unspecified; I50.82 Biventricular heart failure; I25.5 Ischemic cardiomyopathy; I27.21 Secondary pulmonary arterial hypertension; E78.5 Hyperlipidemia, unspecified; D69.6 Thrombocytopenia, unspecified; D64.9 Anemia, unspecified; E11.9 Type 2 diabetes mellitus without complications; E66.01 Morbid (severe) obesity due to excess calories; I07.1 Rheumatic tricuspid insufficiency; M10.9 Gout, unspecified; D72.810 Lymphocytopenia; Z96.653 Presence of artificial knee joint, bilateral; I25.10 Atherosclerotic heart disease of native coronary artery without angina pectoris; Z95.5 Presence of coronary angioplasty implant and graft; Z87.891 Personal history of nicotine dependence; Z95.0 Presence of cardiac pacemaker; Z95.1 Presence of aortocoronary bypass graft; Z79.4 Long term (current) use of insulin; Z79.01 Long term (current) use of anticoagulants; Z88.6 Allergy status to analgesic agent; Z79.02 Long term (current) use of antithrombotics/antiplatelets; Z79.899 Other long term (current) drug therapy; Z03.818 Encounter for observation for suspected exposure to other biological agents ruled out; R04.0 Epistaxis
CPT/HCPCS: 36415; 36600; 71045; 76937; 80048; 80053; 80061; 82375; 82805; 82962; 83735; 83880; 84439; 84443; 84484; 85025; 85027; 86850; 86900; 87635; 93005; 93970; 94640; 94660; 96365; 97110; 97116; 97162; 97530; 99291; C1725; J1200; J1250; J1265; J1650; J1940; J2060; J2270; J2405; J3480; J3490; J7060; J7626; P9041

== ENCOUNTER 2020-08-24 10:50 | Inpatient (IN) | payer MEDICARE, MEDICAID ==
[~2020-08-24] VITALS: Ht 160 cm; Wt 82.6 kg
[~2020-08-24 10:50] MED LIST changes: +CLOP-31 PO; -CLOP75TA4 PO; -HYDR-4135 PO; -NIFE-33 PO; -OLME40TA18 PO
[2020-08-24 11:30] VITALS: BP 105/51
[2020-08-24] MEDS ORDERED: IPRATROPIUM/ALBUTEROL 0.5-3(2.5)MG/3ML NEB HHN PRN (12:45)
[2020-08-24] MEDS ORDERED: ONDANSETRON 4MG ODT PO PRN (12:45)
[2020-08-24] MEDS ORDERED: MAGNESIUM/ALUMINUM HYDROXIDE/SIMETHICONE 30ML UDC PO PRN (12:45)
[2020-08-24] MEDS ORDERED: CLONIDINE 0.1MG TABLET PO PRN (12:45)
[2020-08-24] MEDS ORDERED: GUAIFENESIN 200MG/10ML SUGAR FREE UDC PO PRN (12:45)
[2020-08-24] MEDS: ACETAMINOPHEN 500MG TABLET PO SCH ×2 (15:16→21:08)
[2020-08-24 16:03] VITALS: BP 105/51
[2020-08-24] MEDS: APIXABAN 5 MG TABLET PO SCH (17:06)
[2020-08-24] MEDS: DOCUSATE SODIUM 100MG CAPSULE PO PRN (17:06)
[2020-08-24] MEDS: POTASSIUM CHLORIDE 20MEQ TABLET SR PO SCH (17:07)
[2020-08-24] MEDS: FUROSEMIDE 40MG/4ML VIAL IVP SCH (17:07)
[2020-08-24] MEDS ORDERED: FLUCONAZOLE 150MG TABLET PO NR (18:30)
[2020-08-24 20:00] VITALS: BP 109/57
[2020-08-24] MEDS ORDERED: INFLUENZA VACCINE 05/PF 0.5 ML VIAL IM ONE (20:00)
[2020-08-24] MEDS: ATORVASTATIN CALCIUM 40MG TABLET PO SCH (21:08)
[2020-08-24] MEDS: BACITRACIN 15GM TUBE TOP SCH (21:09)
[2020-08-24] MEDS: CARVEDILOL 3.125 MG TABLET PO SCH (21:09)
[2020-08-25] MEDS: FUROSEMIDE 40MG/4ML VIAL IVP SCH ×2 (05:18→17:37)
[2020-08-25] MEDS: POTASSIUM CHLORIDE 20MEQ TABLET SR PO SCH ×2 (05:19→17:38)
[2020-08-25] MEDS: ACETAMINOPHEN 500MG TABLET PO SCH ×3 (05:19→21:18)
[2020-08-25 07:21] LABS: CLARITY URINE CLEAR (CLEAR); COLOR URINE YELLOW (YELLOW); KETONES URINE NEGATIVE (NEGATIVE); LEUKOCYTE ESTERASE URINE TRACE (NEGATIVE); NITRITE URINE NEGATIVE (NEGATIVE); OCCULT BLOOD URINE 2+ (NEGATIVE); PH URINE 7.5 (4.5-8.0); PROTEIN URINE NEGATIVE (NEGATIVE); SPECIFIC GRAVITY URINE 1.006 (1.005-1.030); UROBILINOGEN URINE 0.2 E.U./dL (0.2-1.0)
[2020-08-25 07:24] LABS: HEMOGLOBIN. 10.2 g/dL (12.0-16.0); MEAN CORPUSCULAR HEMOGLOBIN 29.2 pg (28.0-32.0); MEAN CORPUSCULAR VOLUME 91.6 fL (81.0-99.0); MEAN PLATELET VOLUME 8.7 fl (7.4-10.4); PLATELET 208 x1000/uL (130-400); RED CELL DISTRIBUTION WIDTH 17.8 % (11.6-14.6)
[2020-08-25 07:39] LABS: CHLORIDE 98 mEq/L (98-107)
[2020-08-25 07:46] LABS: TOTAL IRON BINDING CAPACITY 368 ug/dL (250-450)
[2020-08-25 07:54] LABS: FERRITIN 232 ng/mL (10-291)
[2020-08-25 08:00] VITALS: BP 117/56
[2020-08-25 08:00] LABS: VITAMIN B12 SERUM 522 pg/mL (211-911)
[2020-08-25 08:38] LABS: PHOSPHORUS 2.9 mg/dL (2.5-4.9)
[2020-08-25] MEDS: APIXABAN 5 MG TABLET PO SCH ×2 (08:43→17:38)
[2020-08-25] MEDS: BACITRACIN 15GM TUBE TOP SCH ×2 (08:44→20:16)
[2020-08-25] MEDS: CLOPIDOGREL 75MG TABLET PO SCH (08:44)
[2020-08-25] MEDS: CARVEDILOL 3.125 MG TABLET PO SCH ×2 (08:44→20:16)
[2020-08-25] MEDS ORDERED: ALBUTEROL 6.7GM HFA INHALER ORI PRN (12:00)
[2020-08-25] MEDS ORDERED: BUDESONIDE 0.5MG/2ML NEB HHN SCH (12:15)
[2020-08-25] MEDS ORDERED: CYANOCOBALAMIN 1000MCG/ML VIAL IM NR (15:00)
[2020-08-25] MEDS ORDERED: ALBUTEROL (0.083%) 2.5MG/3ML NEB HHN PRN (17:30)
[2020-08-25] MEDS: DOCUSATE SODIUM 100MG CAPSULE PO PRN (17:38)
[2020-08-25] MEDS: FERROUS SULFATE 325MG TABLET PO SCH (17:38)
[2020-08-25 20:00] VITALS: BP 126/60
[2020-08-25] MEDS: ATORVASTATIN CALCIUM 40MG TABLET PO SCH (20:16)
[2020-08-26] MEDS: ACETAMINOPHEN 500MG TABLET PO SCH ×3 (05:12→21:20)
[2020-08-26] MEDS: POTASSIUM CHLORIDE 20MEQ TABLET SR PO SCH ×2 (05:12→17:04)
[2020-08-26] MEDS: FUROSEMIDE 40MG/4ML VIAL IVP SCH ×2 (05:12→17:04)
[2020-08-26] MEDS: CYCLOBENZAPRINE 10MG TABLET PO PRN ×2 (05:13→15:17)
[2020-08-26 07:47] VITALS: BP 101/44
[2020-08-26] MEDS: CLOPIDOGREL 75MG TABLET PO SCH (08:56)
[2020-08-26] MEDS: APIXABAN 5 MG TABLET PO SCH ×2 (08:56→16:36)
[2020-08-26] MEDS: FERROUS SULFATE 325MG TABLET PO SCH ×3 (08:56→17:04)
[2020-08-26] MEDS: ASCORBIC ACID 500 MG TABLET PO SCH (08:56)
[2020-08-26] MEDS: BACITRACIN 15GM TUBE TOP SCH ×2 (08:57→21:21)
[2020-08-26] MEDS: CARVEDILOL 3.125 MG TABLET PO SCH ×2 (09:00→21:20)
[2020-08-26 14:59] LABS: PLATELET ESTIMATE NORMAL
[2020-08-26 20:00] VITALS: BP 118/71
[2020-08-26] MEDS: ATORVASTATIN CALCIUM 40MG TABLET PO SCH (21:21)
[2020-08-27] MEDS: CYCLOBENZAPRINE 10MG TABLET PO PRN (00:02)
[2020-08-27 06:26] LABS: HEMOGLOBIN. 9.6 g/dL (12.0-16.0); MEAN CORPUSCULAR HEMOGLOBIN 29.9 pg (28.0-32.0); MEAN CORPUSCULAR VOLUME 90.4 fL (81.0-99.0); MEAN PLATELET VOLUME 8.8 fl (7.4-10.4); PLATELET 266 x1000/uL (130-400); RED CELL DISTRIBUTION WIDTH 17.6 % (11.6-14.6)
[2020-08-27 06:30] LABS: CHLORIDE 96 mEq/L (98-107)
[2020-08-27] MEDS: FUROSEMIDE 40MG/4ML VIAL IVP SCH ×2 (06:31→17:04)
[2020-08-27] MEDS: ACETAMINOPHEN 500MG TABLET PO SCH ×3 (06:32→21:38)
[2020-08-27] MEDS: POTASSIUM CHLORIDE 20MEQ TABLET SR PO SCH ×2 (06:32→17:28)
[2020-08-27 07:41] VITALS: BP 130/65
[2020-08-27] MEDS: APIXABAN 5 MG TABLET PO SCH ×2 (08:37→17:27)
[2020-08-27] MEDS: CLOPIDOGREL 75MG TABLET PO SCH (08:37)
[2020-08-27] MEDS: FERROUS SULFATE 325MG TABLET PO SCH ×3 (08:37→17:04)
[2020-08-27] MEDS: BACITRACIN 15GM TUBE TOP SCH ×2 (08:37→21:39)
[2020-08-27] MEDS: ASCORBIC ACID 500 MG TABLET PO SCH ×2 (08:37→21:38)
[2020-08-27] MEDS: CARVEDILOL 3.125 MG TABLET PO SCH ×2 (08:38→21:00)
[2020-08-27] MEDS ORDERED: LEVOFLOXACIN 500MG TABLET PO NR (10:15)
[2020-08-27] MEDS: GABAPENTIN 100MG CAPSULE PO SCH ×2 (13:23→21:38)
[2020-08-27 18:40] LABS: PLATELET ESTIMATE NORMAL
[2020-08-27 20:00] VITALS: BP 112/63
[2020-08-27] MEDS: ATORVASTATIN CALCIUM 40MG TABLET PO SCH (21:38)
[2020-08-28 05:04] VITALS: BP 125/62
[2020-08-28] MEDS: GABAPENTIN 100MG CAPSULE PO SCH ×3 (05:48→22:10)
[2020-08-28] MEDS: ACETAMINOPHEN 500MG TABLET PO SCH ×3 (05:48→22:11)
[2020-08-28] MEDS: FUROSEMIDE 40MG/4ML VIAL IVP SCH ×2 (05:49→18:24)
[2020-08-28] MEDS: POTASSIUM CHLORIDE 20MEQ TABLET SR PO SCH ×2 (06:30→18:16)
[2020-08-28] MEDS: ALBUTEROL (0.083%) 2.5MG/3ML NEB HHN SCH ×3 (08:00→16:00)
[2020-08-28] MEDS: BACITRACIN 15GM TUBE TOP SCH ×2 (08:24→22:10)
[2020-08-28] MEDS: CLOPIDOGREL 75MG TABLET PO SCH (08:24)
[2020-08-28] MEDS: APIXABAN 5 MG TABLET PO SCH ×2 (08:24→18:17)
[2020-08-28] MEDS: DOCUSATE SODIUM 100MG CAPSULE PO PRN ×2 (08:24→18:16)
[2020-08-28] MEDS: FERROUS SULFATE 325MG TABLET PO SCH ×3 (08:24→18:16)
[2020-08-28] MEDS: CARVEDILOL 3.125 MG TABLET PO SCH ×2 (08:25→21:00)
[2020-08-28] MEDS: LEVOFLOXACIN 250MG TABLET PO SCH (11:05)
[2020-08-28 15:40] LABS: CLARITY URINE CLEAR (CLEAR); COLOR URINE YELLOW (YELLOW); KETONES URINE NEGATIVE (NEGATIVE); LEUKOCYTE ESTERASE URINE 1+ (NEGATIVE); NITRITE URINE NEGATIVE (NEGATIVE); OCCULT BLOOD URINE NEGATIVE (NEGATIVE); PH URINE 6.5 (4.5-8.0); PROTEIN URINE NEGATIVE (NEGATIVE); SPECIFIC GRAVITY URINE 1.019 (1.005-1.030)
[2020-08-28 20:00] VITALS: BP 105/54
[2020-08-28] MEDS: ATORVASTATIN CALCIUM 40MG TABLET PO SCH (22:10)
[2020-08-29] MEDS: FUROSEMIDE 40MG/4ML VIAL IVP SCH ×2 (06:07→18:06)
[2020-08-29] MEDS: GABAPENTIN 100MG CAPSULE PO SCH ×3 (06:08→21:52)
[2020-08-29] MEDS: ACETAMINOPHEN 500MG TABLET PO SCH ×2 (06:09→07:09)
[2020-08-29] MEDS: POTASSIUM CHLORIDE 20MEQ TABLET SR PO SCH ×2 (06:09→18:06)
[2020-08-29 07:18] LABS: HEMATOCRIT. 28.6 % (36.0-48.0); HEMOGLOBIN. 9.4 g/dL (12.0-16.0); MEAN CORPUSCULAR HEMOGLOBIN 29.9 pg (28.0-32.0); MEAN PLATELET VOLUME 8.4 fl (7.4-10.4); PLATELET 253 x1000/uL (130-400); RED BLOOD CELL COUNT 3.15 mill/uL (4.2-5.4); RED CELL DISTRIBUTION WIDTH 17.4 % (11.6-14.6)
[2020-08-29 07:32] LABS: CHLORIDE 101 mEq/L (98-107)
[2020-08-29 08:00] VITALS: BP 108/50
[2020-08-29] MEDS: CARVEDILOL 3.125 MG TABLET PO SCH ×3 (09:00→21:00)
[2020-08-29] MEDS: FERROUS SULFATE 325MG TABLET PO SCH ×3 (10:07→17:43)
[2020-08-29] MEDS: CLOPIDOGREL 75MG TABLET PO SCH (10:08)
[2020-08-29] MEDS: ASCORBIC ACID 500 MG TABLET PO SCH (10:08)
[2020-08-29] MEDS: APIXABAN 5 MG TABLET PO SCH ×2 (10:08→21:51)
[2020-08-29] MEDS: LEVOFLOXACIN 250MG TABLET PO SCH (10:10)
[2020-08-29] MEDS: BACITRACIN 15GM TUBE TOP SCH ×2 (10:11→21:52)
[2020-08-29] MEDS: ACETAMINOPHEN 500MG TABLET PO PRN ×2 (18:05→21:52)
[2020-08-29] MEDS: ALBUTEROL (0.083%) 2.5MG/3ML NEB HHN SCH (18:36)
[2020-08-29 20:00] VITALS: BP 116/43
[2020-08-29 21:18] LABS: PLATELET ESTIMATE NORMAL
[2020-08-29] MEDS: ATORVASTATIN CALCIUM 40MG TABLET PO SCH (21:52)
[2020-08-30] MEDS: ACETAMINOPHEN 500MG TABLET PO PRN ×3 (05:49→20:39)
[2020-08-30] MEDS: GABAPENTIN 100MG CAPSULE PO SCH ×3 (05:50→21:33)
[2020-08-30] MEDS: POTASSIUM CHLORIDE 20MEQ TABLET SR PO SCH (05:50)
[2020-08-30] MEDS: FUROSEMIDE 40MG/4ML VIAL IVP SCH ×2 (05:51→17:41)
[2020-08-30 06:31] LABS: HEMATOCRIT. 29.4 % (36.0-48.0); HEMOGLOBIN. 9.5 g/dL (12.0-16.0); MEAN CORPUSCULAR HEMOGLOBIN 29.6 pg (28.0-32.0); MEAN CORPUSCULAR VOLUME 91.4 fL (81.0-99.0); MEAN PLATELET VOLUME 7.8 fl (7.4-10.4); PLATELET 279 x1000/uL (130-400); RED BLOOD CELL COUNT 3.22 mill/uL (4.2-5.4); RED CELL DISTRIBUTION WIDTH 17.7 % (11.6-14.6)
[2020-08-30 06:48] LABS: CHLORIDE 101 mEq/L (98-107)
[2020-08-30 06:55] LABS: PHOSPHORUS 3.7 mg/dL (2.5-4.9)
[2020-08-30 08:00] VITALS: BP 108/47
[2020-08-30] MEDS: CLOPIDOGREL 75MG TABLET PO SCH (08:53)
[2020-08-30] MEDS: CYCLOBENZAPRINE 10MG TABLET PO PRN (08:53)
[2020-08-30] MEDS: ASCORBIC ACID 500 MG TABLET PO SCH (08:53)
[2020-08-30] MEDS: FERROUS SULFATE 325MG TABLET PO SCH ×3 (08:53→17:41)
[2020-08-30] MEDS: CARVEDILOL 3.125 MG TABLET PO SCH ×2 (08:54→20:38)
[2020-08-30] MEDS: BACITRACIN 15GM TUBE TOP SCH ×2 (08:59→21:33)
[2020-08-30] MEDS: APIXABAN 5 MG TABLET PO SCH ×2 (09:53→17:41)
[2020-08-30] MEDS: LEVOFLOXACIN 250MG TABLET PO SCH (15:54)
[2020-08-30] MEDS: DOCUSATE SODIUM 100MG CAPSULE PO PRN (17:40)
[2020-08-30 18:19] LABS: PLATELET ESTIMATE NORMAL
[2020-08-30 20:00] VITALS: BP 111/53
[2020-08-30] MEDS: ATORVASTATIN CALCIUM 40MG TABLET PO SCH (20:38)
[2020-08-30] MEDS ORDERED: TRAMADOL 50MG TABLET PO PRN (23:00)
[2020-08-31] MEDS ORDERED: CARISOPRODOL 350 MG TABLET PO PRN (01:00)
[2020-08-31 06:00] VITALS: BP 131/46
[2020-08-31] MEDS: GABAPENTIN 100MG CAPSULE PO SCH ×3 (06:05→21:04)
[2020-08-31] MEDS: FUROSEMIDE 40MG/4ML VIAL IVP SCH ×2 (06:05→17:01)
[2020-08-31 07:19] LABS: CHLORIDE 101 mEq/L (98-107)
[2020-08-31 07:42] LABS: HEMATOCRIT. 28.5 % (36.0-48.0); HEMOGLOBIN. 8.9 g/dL (12.0-16.0); MEAN CORPUSCULAR HEMOGLOBIN 28.7 pg (28.0-32.0); MEAN CORPUSCULAR VOLUME 92.3 fL (81.0-99.0); MEAN PLATELET VOLUME 8.2 fl (7.4-10.4); PLATELET 289 x1000/uL (130-400); RED BLOOD CELL COUNT 3.09 mill/uL (4.2-5.4); RED CELL DISTRIBUTION WIDTH 17.9 % (11.6-14.6)
[2020-08-31] MEDS: FERROUS SULFATE 325MG TABLET PO SCH ×3 (08:42→16:58)
[2020-08-31] MEDS: ASCORBIC ACID 500 MG TABLET PO SCH (08:42)
[2020-08-31] MEDS: CLOPIDOGREL 75MG TABLET PO SCH (08:42)
[2020-08-31] MEDS: APIXABAN 5 MG TABLET PO SCH ×2 (08:42→16:58)
[2020-08-31] MEDS: CARVEDILOL 3.125 MG TABLET PO SCH ×2 (08:43→21:04)
[2020-08-31] MEDS: BACITRACIN 15GM TUBE TOP SCH ×2 (08:47→21:04)
[2020-08-31] MEDS: LEVOFLOXACIN 250MG TABLET PO SCH (12:00)
[2020-08-31] MEDS: ALBUTEROL (0.083%) 2.5MG/3ML NEB HHN SCH ×2 (13:56→20:53)
[2020-08-31 15:11] LABS: 25-HYDROXY VITAMIN D3 7.3 ng/mL (.)
[2020-08-31] MEDS: POTASSIUM CHLORIDE 20MEQ TABLET SR PO SCH (17:00)
[2020-08-31 19:12] LABS: PLATELET ESTIMATE NORMAL
[2020-08-31 20:00] VITALS: BP 131/50
[2020-08-31] MEDS: ATORVASTATIN CALCIUM 40MG TABLET PO SCH (21:04)
[2020-09-01] MEDS: FUROSEMIDE 40MG/4ML VIAL IVP SCH (05:41)
[2020-09-01] MEDS: GABAPENTIN 100MG CAPSULE PO SCH (05:41)
[2020-09-01 08:00] VITALS: BP 120/54
[2020-09-01] MEDS: FERROUS SULFATE 325MG TABLET PO SCH ×2 (09:01→12:32)
[2020-09-01] MEDS: APIXABAN 5 MG TABLET PO SCH (09:01)
[2020-09-01] MEDS: CARVEDILOL 3.125 MG TABLET PO SCH (09:01)
[2020-09-01] MEDS: CLOPIDOGREL 75MG TABLET PO SCH (09:01)
[2020-09-01] MEDS: ASCORBIC ACID 500 MG TABLET PO SCH (09:01)
[2020-09-01] MEDS: BACITRACIN 15GM TUBE TOP SCH (09:02)
[2020-09-01 11:12] VITALS: BP 120/54
[2020-09-01] MEDS: LEVOFLOXACIN 250MG TABLET PO SCH (12:32)
[2020-09-01] MEDS ORDERED: ERGOCALCIFEROL 50000UNITS CAPSULE PO SCH (14:00)
== END 2020-09-01 14:10 | disposition home health service (06) | DRG 70 ==
PROVIDERS: ADMIT Physical Medicine & Rehabilitation Spinal Cord Injury Medicine; ATTEND Hospitalist
PROC: 5A09357 Assistance with Respiratory Ventilation, Less than 24 Consecutive Hours, Continuous Positive Airway Pressure (ICD-10-PCS; principal; 2020-08-26)
PROC: 5A09357 Assistance with Respiratory Ventilation, Less than 24 Consecutive Hours, Continuous Positive Airway Pressure (ICD-10-PCS; 2020-08-31)
DX: G93.41 Metabolic encephalopathy (principal); J96.21 Acute and chronic respiratory failure with hypoxia; I50.23 Acute on chronic systolic (congestive) heart failure; E43 Unspecified severe protein-calorie malnutrition; J44.1 Chronic obstructive pulmonary disease with (acute) exacerbation; I48.20 Chronic atrial fibrillation, unspecified; N39.0 Urinary tract infection, site not specified; E66.2 Morbid (severe) obesity with alveolar hypoventilation; D68.59 Other primary thrombophilia; I31.3 Pericardial effusion (noninflammatory); I25.5 Ischemic cardiomyopathy; I27.29 Other secondary pulmonary hypertension; I25.10 Atherosclerotic heart disease of native coronary artery without angina pectoris; M10.9 Gout, unspecified; D64.9 Anemia, unspecified; R26.9 Unspecified abnormalities of gait and mobility; M54.10 Radiculopathy, site unspecified; I11.0 Hypertensive heart disease with heart failure; E11.9 Type 2 diabetes mellitus without complications; E55.9 Vitamin D deficiency, unspecified; E78.5 Hyperlipidemia, unspecified; F32.9 Major depressive disorder, single episode, unspecified; I08.3 Combined rheumatic disorders of mitral, aortic and tricuspid valves; I27.21 Secondary pulmonary arterial hypertension; Z60.2 Problems related to living alone; R53.81 Other malaise; Z20.828 Contact with and (suspected) exposure to other viral communicable diseases; Z99.81 Dependence on supplemental oxygen; Z95.810 Presence of automatic (implantable) cardiac defibrillator; Z95.5 Presence of coronary angioplasty implant and graft; Z95.1 Presence of aortocoronary bypass graft; Z79.01 Long term (current) use of anticoagulants; Z68.32 Body mass index [BMI] 32.0-32.9, adult; Z79.899 Other long term (current) drug therapy; Z88.8 Allergy status to other drugs, medicaments and biological substances; Z82.49 Family history of ischemic heart disease and other diseases of the circulatory system; Z87.891 Personal history of nicotine dependence; Z91.14 Patient's other noncompliance with medication regimen; Z88.5 Allergy status to narcotic agent
CPT/HCPCS: 36415; 80048; 80053; 81003; 82140; 82306; 82607; 82728; 83540; 83550; 83735; 84100; 84134; 84443; 85025; 87426; 90686; 92523; 92610; 93970; 94640; 97110; 97116; 97162; 97166; 97530; 97535; C1893; J1940; J3420

== ENCOUNTER 2020-10-26 13:29 | Inpatient (IN) | payer MEDICARE, MEDICAID ==
[~2020-10-26] VITALS: Ht 154.9 cm; Wt 90.7 kg
[2020-10-26] MEDS: LISINOPRIL 2.5MG TABLET PO SCH (15:00)
[2020-10-26 15:19] LABS: HEMATOCRIT. 29.3 % (36.0-48.0); HEMOGLOBIN. 8.9 g/dL (12.0-16.0); MEAN CORPUSCULAR HEMOGLOBIN 27.7 pg (28.0-32.0); MEAN CORPUSCULAR VOLUME 91.1 fL (81.0-99.0); MEAN PLATELET VOLUME 8.2 fl (7.4-10.4); PLATELET 159 x1000/uL (130-400); RED BLOOD CELL COUNT 3.21 mill/uL (4.2-5.4); RED CELL DISTRIBUTION WIDTH 19.5 % (11.6-14.6)
[2020-10-26 15:24] LABS: CHLORIDE 108 mEq/L (98-107)
[2020-10-26 15:25] LABS: INR 1.2; PROTHROMBIN TIME 12.4 sec (9.6-11.0)
[2020-10-26 15:37] LABS: PLATELET ESTIMATE NORMAL
[2020-10-26] MEDS: FUROSEMIDE 40MG/4ML VIAL IVP SCH ×2 (16:00→19:04)
[2020-10-26] MEDS ORDERED: DIPHENHYDRAMINE 50MG/ML VIAL IV PRN (16:30)
[2020-10-26] MEDS ORDERED: CLONIDINE 0.1MG TABLET PO PRN (16:30)
[2020-10-26] MEDS ORDERED: ONDANSETRON HCL 4MG/2ML INJ IV PRN (16:30)
[2020-10-26] MEDS ORDERED: MORPHINE SULFATE 2 MG/ML CPJ (NOT FOR IM USE) IV PRN (16:30)
[2020-10-26] MEDS ORDERED: FUROSEMIDE 40MG/4ML VIAL IVP ONE (16:30)
[2020-10-26] MEDS ORDERED: IPRATROPIUM/ALBUTEROL 0.5-3(2.5)MG/3ML NEB HHN PRN (16:30)
[2020-10-26] MEDS: ENOXAPARIN 80MG/0.8ML SYR SUBCUT SCH (17:00)
[2020-10-26 19:19] LABS: CLARITY URINE CLEAR (CLEAR); COLOR URINE YELLOW (YELLOW); KETONES URINE NEGATIVE (NEGATIVE); LEUKOCYTE ESTERASE URINE NEGATIVE (NEGATIVE); NITRITE URINE NEGATIVE (NEGATIVE); OCCULT BLOOD URINE NEGATIVE (NEGATIVE); PROTEIN URINE NEGATIVE (NEGATIVE); SPECIFIC GRAVITY URINE 1.009 (1.005-1.030); UROBILINOGEN URINE 0.2 E.U./dL (0.2-1.0)
[2020-10-26] MEDS: CARVEDILOL 3.125 MG TABLET PO SCH (21:00)
[2020-10-26 23:30] VITALS: BP_SYST 105; BP_SYST 122; BP_DIAS 41; BP_DIAS 78
[2020-10-27 04:00] VITALS: BP 110/43
[2020-10-27 07:54] LABS: HEMATOCRIT. 27.4 % (36.0-48.0); HEMOGLOBIN. 8.4 g/dL (12.0-16.0); MEAN CORPUSCULAR HEMOGLOBIN 27.8 pg (28.0-32.0); MEAN CORPUSCULAR VOLUME 90.8 fL (81.0-99.0); MEAN PLATELET VOLUME 8.4 fl (7.4-10.4); PLATELET 130 x1000/uL (130-400); RED BLOOD CELL COUNT 3.02 mill/uL (4.2-5.4); RED CELL DISTRIBUTION WIDTH 19.3 % (11.6-14.6)
[2020-10-27 08:00] VITALS: BP 111/49
[2020-10-27] MEDS: LISINOPRIL 2.5MG TABLET PO SCH (09:00)
[2020-10-27] MEDS: CARVEDILOL 3.125 MG TABLET PO SCH ×2 (09:00→20:27)
[2020-10-27] MEDS: FUROSEMIDE 40MG/4ML VIAL IVP SCH ×2 (09:00→16:31)
[2020-10-27 09:50] LABS: PLATELET ESTIMATE NORMAL
[2020-10-27 15:49] LABS: BG BASE EXCESS 9.6 mmol/L (-2.0-2.0); BG CARBOXYHEMOGLOBIN 0.5 % (0.5-1.5); BG DEOXYHEMOGLOBIN 3.9 % (0.0-5.0); BG HCO3 ACT 37.6 mmol/L (22.0-26.0); BG METHEMOGLOBIN 0.3 % (0.0-1.5); BG OXYGEN SATURATION 96.1 % (92.0-98.5); BG OXYHEMOGLOBIN 95.3 % (94.0-97.0); BG PCO2 74.1 mmHg (35.0-45.0); BG PH 7.323 (7.350-7.450); BG PO2 89.5 mmHg (75.0-100.0); BG SAMPLE SITE RIGHT BRACHIAL; BG TOTAL HEMOGLOBIN 9.6 g/dL (12.0-18.0); BG VENT MODE NASAL CANNULA
[2020-10-27 15:59] VITALS: BP 100/49
[2020-10-27] MEDS: ENOXAPARIN 80MG/0.8ML SYR SUBCUT SCH (16:31)
[2020-10-27] MEDS: DOBUTAMINE 250MG PREMIX 250 ML IV SCH (16:32)
[2020-10-27 17:38] VITALS: BP 93/46
[2020-10-27] MEDS: CEPHALEXIN 250MG CAPSULE PO SCH (18:32)
[2020-10-27] MEDS: IPRATROPIUM/ALBUTEROL 0.5-3(2.5)MG/3ML NEB HHN SCH (21:08)
[2020-10-27] MEDS: DOPAMINE 400MG/250ML PREMIX 250 ML IV SCH (21:37)
[2020-10-27 22:00] VITALS: BP 89/48
[2020-10-28] VITALS (15 sets, daily range): BP systolic 85–112; BP diastolic 34–58
[2020-10-28] MEDS: CEPHALEXIN 250MG CAPSULE PO SCH ×5 (02:34→23:39)
[2020-10-28] MEDS: DOBUTAMINE 250MG PREMIX 250 ML IV SCH ×3 (02:37→20:58)
[2020-10-28] MEDS: IPRATROPIUM/ALBUTEROL 0.5-3(2.5)MG/3ML NEB HHN SCH ×4 (02:50→20:14)
[2020-10-28 07:35] LABS: HEMATOCRIT. 27.3 % (36.0-48.0); HEMOGLOBIN. 8.6 g/dL (12.0-16.0); MEAN CORPUSCULAR HEMOGLOBIN 28.4 pg (28.0-32.0); MEAN CORPUSCULAR VOLUME 89.7 fL (81.0-99.0); MEAN PLATELET VOLUME 8.3 fl (7.4-10.4); PLATELET 133 x1000/uL (130-400); RED BLOOD CELL COUNT 3.05 mill/uL (4.2-5.4); RED CELL DISTRIBUTION WIDTH 19.8 % (11.6-14.6)
[2020-10-28] MEDS: LISINOPRIL 2.5MG TABLET PO SCH (08:07)
[2020-10-28] MEDS: AMIODARONE HCL 200 MG TABLET PO SCH (08:14)
[2020-10-28] MEDS: CARVEDILOL 3.125 MG TABLET PO SCH ×2 (08:14→20:58)
[2020-10-28] MEDS ORDERED: LIDOCAINE HCL 1% 20ML VIAL (Pyxis) INJ ONE (08:25)
[2020-10-28] MEDS: FUROSEMIDE 40MG/4ML VIAL IVP SCH ×2 (09:35→16:40)
[2020-10-28] MEDS: DOPAMINE 400MG/250ML PREMIX 250 ML IV SCH (14:55)
[2020-10-28] MEDS: ENOXAPARIN 80MG/0.8ML SYR SUBCUT SCH (15:02)
[2020-10-28 23:24] LABS: PLATELET ESTIMATE NORMAL
[2020-10-29] VITALS (24 sets, daily range): BP systolic 84–127; BP diastolic 34–76
[2020-10-29] MEDS: DOBUTAMINE 250MG PREMIX 250 ML IV SCH ×3 (00:24→20:45)
[2020-10-29] MEDS: IPRATROPIUM/ALBUTEROL 0.5-3(2.5)MG/3ML NEB HHN SCH ×4 (02:48→21:33)
[2020-10-29] MEDS: DOPAMINE 400MG/250ML PREMIX 250 ML IV SCH (05:02)
[2020-10-29] MEDS: CEPHALEXIN 250MG CAPSULE PO SCH ×3 (05:55→17:29)
[2020-10-29 07:35] LABS: HEMATOCRIT. 25.9 % (36.0-48.0); HEMOGLOBIN. 8.2 g/dL (12.0-16.0); MEAN CORPUSCULAR HEMOGLOBIN 28.2 pg (28.0-32.0); MEAN CORPUSCULAR VOLUME 89.5 fL (81.0-99.0); MEAN PLATELET VOLUME 8.3 fl (7.4-10.4); PLATELET 121 x1000/uL (130-400); RED CELL DISTRIBUTION WIDTH 19.1 % (11.6-14.6)
[2020-10-29] MEDS: LISINOPRIL 2.5MG TABLET PO SCH (09:36)
[2020-10-29] MEDS: AMIODARONE HCL 200 MG TABLET PO SCH (09:36)
[2020-10-29] MEDS: FUROSEMIDE 40MG/4ML VIAL IVP SCH ×2 (09:36→17:29)
[2020-10-29] MEDS: CARVEDILOL 3.125 MG TABLET PO SCH ×2 (09:36→21:00)
[2020-10-29] MEDS: ENOXAPARIN 80MG/0.8ML SYR SUBCUT SCH (17:29)
[2020-10-29 23:27] LABS: PLATELET ESTIMATE SLIGHTLY DECREASED
[2020-10-30] VITALS (19 sets, daily range): BP systolic 92–131; BP diastolic 41–59
[2020-10-30] MEDS: CEPHALEXIN 250MG CAPSULE PO SCH ×5 (00:29→23:56)
[2020-10-30] MEDS: IPRATROPIUM/ALBUTEROL 0.5-3(2.5)MG/3ML NEB HHN SCH ×4 (02:23→20:51)
[2020-10-30] MEDS: DOPAMINE 400MG/250ML PREMIX 250 ML IV SCH (06:21)
[2020-10-30] MEDS: DOBUTAMINE 250MG PREMIX 250 ML IV SCH ×2 (06:38→16:37)
[2020-10-30 06:50] LABS: HEMATOCRIT. 26.9 % (36.0-48.0); HEMOGLOBIN. 8.4 g/dL (12.0-16.0); MEAN CORPUSCULAR VOLUME 89.8 fL (81.0-99.0); MEAN PLATELET VOLUME 8.6 fl (7.4-10.4); PLATELET 110 x1000/uL (130-400); RED BLOOD CELL COUNT 2.99 mill/uL (4.2-5.4); RED CELL DISTRIBUTION WIDTH 19.7 % (11.6-14.6)
[2020-10-30 07:11] LABS: CHLORIDE 102 mEq/L (98-107)
[2020-10-30] MEDS: CARVEDILOL 3.125 MG TABLET PO SCH ×2 (10:06→21:46)
[2020-10-30] MEDS: FUROSEMIDE 40MG/4ML VIAL IVP SCH ×2 (10:06→16:38)
[2020-10-30] MEDS: AMIODARONE HCL 200 MG TABLET PO SCH (10:06)
[2020-10-30] MEDS: LISINOPRIL 2.5MG TABLET PO SCH (10:07)
[2020-10-30 14:03] LABS: PLATELET ESTIMATE SLIGHTLY DECREASED
[2020-10-30] MEDS: ENOXAPARIN 80MG/0.8ML SYR SUBCUT SCH (16:38)
[2020-10-31] VITALS (12 sets, daily range): BP systolic 80–131; BP diastolic 30–62
[2020-10-31] MEDS: IPRATROPIUM/ALBUTEROL 0.5-3(2.5)MG/3ML NEB HHN SCH ×4 (00:21→21:00)
[2020-10-31] MEDS: DOBUTAMINE 250MG PREMIX 250 ML IV SCH (04:13)
[2020-10-31 06:11] LABS: CHLORIDE 101 mEq/L (98-107)
[2020-10-31] MEDS: ENOXAPARIN 80MG/0.8ML SYR SUBCUT SCH ×2 (06:18→17:54)
[2020-10-31] MEDS: CEPHALEXIN 250MG CAPSULE PO SCH ×3 (06:18→17:54)
[2020-10-31 06:37] LABS: HEMATOCRIT. 27.6 % (36.0-48.0); HEMOGLOBIN. 8.5 g/dL (12.0-16.0); MEAN CORPUSCULAR HEMOGLOBIN 27.5 pg (28.0-32.0); MEAN CORPUSCULAR VOLUME 88.8 fL (81.0-99.0); MEAN PLATELET VOLUME 8.4 fl (7.4-10.4); PLATELET 119 x1000/uL (130-400); RED BLOOD CELL COUNT 3.11 mill/uL (4.2-5.4); RED CELL DISTRIBUTION WIDTH 19.2 % (11.6-14.6)
[2020-10-31] MEDS: LISINOPRIL 2.5MG TABLET PO SCH (09:06)
[2020-10-31] MEDS: FUROSEMIDE 40MG/4ML VIAL IVP SCH ×2 (09:06→17:53)
[2020-10-31] MEDS: AMIODARONE HCL 200 MG TABLET PO SCH (09:06)
[2020-10-31] MEDS: CARVEDILOL 3.125 MG TABLET PO SCH ×2 (09:07→21:20)
[2020-10-31 12:59] LABS: PLATELET ESTIMATE SLIGHTLY DECREASED
[2020-11-01] VITALS (9 sets, daily range): BP systolic 104–128; BP diastolic 47–68
[2020-11-01] MEDS: CEPHALEXIN 250MG CAPSULE PO SCH ×2 (00:46→05:48)
[2020-11-01] MEDS: IPRATROPIUM/ALBUTEROL 0.5-3(2.5)MG/3ML NEB HHN SCH ×2 (01:55→07:57)
[2020-11-01] MEDS: ENOXAPARIN 80MG/0.8ML SYR SUBCUT SCH (05:48)
[2020-11-01 07:05] LABS: BASOPHILS % 0.2 % (0.0-2.0); CHLORIDE 102 mEq/L (98-107); EOSINOPHILS % 9.6 % (0.0-5.0); HEMATOCRIT. 27.2 % (36.0-48.0); HEMOGLOBIN. 8.5 g/dL (12.0-16.0); LYMPHOCYTES % 8.6 % (20.0-50.0); MEAN CORPUSCULAR HEMOGLOBIN 27.7 pg (28.0-32.0); MEAN CORPUSCULAR VOLUME 88.2 fL (81.0-99.0); MEAN PLATELET VOLUME 8.8 fl (7.4-10.4); NEUTROPHILS % 67.6 % (40.0-76.0); PLATELET 112 x1000/uL (130-400); RED BLOOD CELL COUNT 3.08 mill/uL (4.2-5.4); RED CELL DISTRIBUTION WIDTH 19.2 % (11.6-14.6)
[2020-11-01] MEDS: CARVEDILOL 3.125 MG TABLET PO SCH (09:00)
[2020-11-01] MEDS: LISINOPRIL 2.5MG TABLET PO SCH (09:00)
[2020-11-01] MEDS: FUROSEMIDE 40MG/4ML VIAL IVP SCH (09:14)
[2020-11-01] MEDS: AMIODARONE HCL 200 MG TABLET PO SCH (09:15)
== END 2020-11-01 15:00 | disposition home or self-care (01) | DRG 291 ==
LOC: ER 13:29 → 7WST 16:16 → ENRESERV 22:21 → 8WST 10-27 10:06 → 3WST 10-27 15:34
PROVIDERS: ADMIT Internal Medicine; ATTEND Internal Medicine
PROC: 5A09357 Assistance with Respiratory Ventilation, Less than 24 Consecutive Hours, Continuous Positive Airway Pressure (ICD-10-PCS; principal; 2020-10-27)
PROC: 4B02XTZ Measurement of Cardiac Defibrillator, External Approach (ICD-10-PCS; 2020-10-27)
PROC: 5A09357 Assistance with Respiratory Ventilation, Less than 24 Consecutive Hours, Continuous Positive Airway Pressure (ICD-10-PCS; 2020-10-28)
PROC: 02H633Z Insertion of Infusion Device into Right Atrium, Percutaneous Approach (ICD-10-PCS; 2020-10-28)
PROC: B548ZZA Ultrasonography of Superior Vena Cava, Guidance (ICD-10-PCS; 2020-10-28)
DX: I11.0 Hypertensive heart disease with heart failure (principal); J96.00 Acute respiratory failure, unspecified whether with hypoxia or hypercapnia; E66.2 Morbid (severe) obesity with alveolar hypoventilation; I48.20 Chronic atrial fibrillation, unspecified; L03.116 Cellulitis of left lower limb; L03.115 Cellulitis of right lower limb; I50.43 Acute on chronic combined systolic (congestive) and diastolic (congestive) heart failure; I25.5 Ischemic cardiomyopathy; E11.9 Type 2 diabetes mellitus without complications; D72.825 Bandemia; I25.10 Atherosclerotic heart disease of native coronary artery without angina pectoris; I27.21 Secondary pulmonary arterial hypertension; E78.5 Hyperlipidemia, unspecified; D64.9 Anemia, unspecified; J44.9 Chronic obstructive pulmonary disease, unspecified; Z20.822 Contact with and (suspected) exposure to COVID-19; Z96.653 Presence of artificial knee joint, bilateral; I48.0 Paroxysmal atrial fibrillation; M10.9 Gout, unspecified; S80.822A Blister (nonthermal), left lower leg, initial encounter; S80.821A Blister (nonthermal), right lower leg, initial encounter; X58.XXXA Exposure to other specified factors, initial encounter; S90.31XA Contusion of right foot, initial encounter; I08.2 Rheumatic disorders of both aortic and tricuspid valves; Z95.810 Presence of automatic (implantable) cardiac defibrillator; Z79.01 Long term (current) use of anticoagulants; Z95.1 Presence of aortocoronary bypass graft; Z87.891 Personal history of nicotine dependence; Z91.14 Patient's other noncompliance with medication regimen; Z99.81 Dependence on supplemental oxygen; Z95.5 Presence of coronary angioplasty implant and graft; Y93.89 Activity, other specified; Y92.89 Other specified places as the place of occurrence of the external cause; Y99.8 Other external cause status; Z79.899 Other long term (current) drug therapy; Z91.19 Patient's noncompliance with other medical treatment and regimen; Z79.02 Long term (current) use of antithrombotics/antiplatelets; Z68.37 Body mass index [BMI] 37.0-37.9, adult
CPT/HCPCS: 36415; 36600; 71045; 74176; 76937; 80048; 80053; 80061; 81003; 82375; 82805; 83735; 83880; 84145; 84443; 84484; 84550; 85025; 93005; 93306; 93923; 93970; 93971; 94640; 94660; 97162; 99285; A6261; C1725; C1769; J1200; J1250; J1265; J1650; J1940; J3490; J7040; U0003

== ENCOUNTER 2020-12-05 15:49 | Inpatient (IN) | payer MEDICARE, MEDICAID ==
[~2020-12-05] VITALS: Ht 152.4 cm; Wt 74.4 kg
[2020-12-05] MEDS ORDERED: NITROGLYCERIN 0.4MG TABLET SL SL ONE (16:45)
[2020-12-05] MEDS ORDERED: ASPIRIN 81MG TABLET PO ONE (16:45)
[2020-12-05] MEDS: FUROSEMIDE 40MG TABLET PO SCH (17:10)
[2020-12-05 17:20] LABS: HEMOGLOBIN. 9.3 g/dL (12.0-16.0); MEAN CORPUSCULAR HEMOGLOBIN 28.7 pg (28.0-32.0); MEAN CORPUSCULAR VOLUME 89.3 fL (81.0-99.0); MEAN PLATELET VOLUME 8.1 fl (7.4-10.4); PLATELET 200 x1000/uL (130-400); RED BLOOD CELL COUNT 3.25 mill/uL (4.2-5.4)
[2020-12-05 17:26] LABS: CHLORIDE 105 mEq/L (98-107)
[2020-12-05 17:27] LABS: INR 1.2; PROTHROMBIN TIME 12.4 sec (9.6-11.0)
[2020-12-05 17:51] LABS: PLATELET ESTIMATE NORMAL
[2020-12-05] MEDS: ENOXAPARIN 80MG/0.8ML SYR SUBCUT SCH (18:24)
[2020-12-05 21:35] VITALS: BP 157/76
[2020-12-05] MEDS: CARVEDILOL 3.125 MG TABLET PO SCH (22:41)
[2020-12-05] MEDS: ATORVASTATIN CALCIUM 20MG TABLET PO SCH (22:41)
[2020-12-05 23:08] VITALS: BP 156/76
[2020-12-06] VITALS (8 sets, daily range): BP systolic 97–143; BP diastolic 43–65
[2020-12-06] MEDS: ENOXAPARIN 80MG/0.8ML SYR SUBCUT SCH ×2 (06:23→18:16)
[2020-12-06] MEDS: FUROSEMIDE 40MG TABLET PO SCH (06:23)
[2020-12-06 07:03] LABS: HEMATOCRIT. 28.4 % (36.0-48.0); HEMOGLOBIN. 9.1 g/dL (12.0-16.0); MEAN CORPUSCULAR HEMOGLOBIN 29.3 pg (28.0-32.0); MEAN CORPUSCULAR VOLUME 91.6 fL (81.0-99.0); MEAN PLATELET VOLUME 8.6 fl (7.4-10.4); PLATELET 183 x1000/uL (130-400); RED CELL DISTRIBUTION WIDTH 22.5 % (11.6-14.6)
[2020-12-06 07:25] LABS: CHLORIDE 105 mEq/L (98-107)
[2020-12-06] MEDS ORDERED: MAGNESIUM/ALUMINUM HYDROXIDE/SIMETHICONE 30ML UDC PO PRN (09:15)
[2020-12-06] MEDS ORDERED: IPRATROPIUM/ALBUTEROL 0.5-3(2.5)MG/3ML NEB HHN PRN (09:15)
[2020-12-06] MEDS ORDERED: HYDRALAZINE 20MG/ML VIAL IV PRN (09:15)
[2020-12-06] MEDS ORDERED: GUAIFENESIN 200MG/10ML SUGAR FREE UDC PO PRN (09:15)
[2020-12-06] MEDS ORDERED: MORPHINE SULFATE 2 MG/ML CPJ (NOT FOR IM USE) IV PRN (09:15)
[2020-12-06] MEDS ORDERED: LORAZEPAM 2MG/ML CPJ IV PRN (09:15)
[2020-12-06] MEDS ORDERED: DIPHENHYDRAMINE 50MG/ML VIAL IV PRN (09:15)
[2020-12-06] MEDS ORDERED: DOPAMINE 400MG/250ML PREMIX 250 ML IV PRN (09:30)
[2020-12-06] MEDS ORDERED: DOBUTAMINE 250MG PREMIX 250 ML IV PRN (09:30)
[2020-12-06] MEDS: ASPIRIN 81MG TABLET PO SCH (11:02)
[2020-12-06] MEDS: LISINOPRIL 2.5MG TABLET PO SCH (11:02)
[2020-12-06] MEDS: AMIODARONE HCL 200 MG TABLET PO SCH (11:03)
[2020-12-06] MEDS: CARVEDILOL 3.125 MG TABLET PO SCH ×2 (11:03→21:00)
[2020-12-06] MEDS: FUROSEMIDE 40MG/4ML VIAL IVP SCH ×2 (11:05→18:16)
[2020-12-06] MEDS: SODIUM CHLORIDE 0.9% INJ 3ML FLUSH IVF SCH (14:00)
[2020-12-06 14:01] LABS: PLATELET ESTIMATE NORMAL
[2020-12-06 16:32] LABS: CREATINE KINASE MB FRACTION 2.4 ng/mL (0.5-3.6)
[2020-12-06 17:56] LABS: BG BASE EXCESS 12.2 mmol/L (-2.0-2.0); BG CARBOXYHEMOGLOBIN 0.1 % (0.5-1.5); BG DEOXYHEMOGLOBIN 3.6 % (0.0-5.0); BG FRACTION INSPIRED OXYGEN 40; BG HCO3 ACT 40.4 mmol/L (22.0-26.0); BG METHEMOGLOBIN 0.2 % (0.0-1.5); BG OXYGEN SATURATION 96.4 % (92.0-98.5); BG OXYHEMOGLOBIN 96.1 % (94.0-97.0); BG PCO2 79.2 mmHg (35.0-45.0); BG PH 7.325 (7.350-7.450); BG PO2 91.3 mmHg (75.0-100.0); BG SAMPLE SITE RIGHT RADIAL; BG TOTAL HEMOGLOBIN 9.3 g/dL (12.0-18.0); BG VENT MODE NASAL CANNULA
[2020-12-06] MEDS: IPRATROPIUM/ALBUTEROL 0.5-3(2.5)MG/3ML NEB HHN SCH (20:13)
[2020-12-06] MEDS: ATORVASTATIN CALCIUM 20MG TABLET PO SCH (22:12)
[2020-12-07] VITALS (11 sets, daily range): BP systolic 89–118; BP diastolic 41–57
[2020-12-07] MEDS: IPRATROPIUM/ALBUTEROL 0.5-3(2.5)MG/3ML NEB HHN SCH ×4 (02:08→20:47)
[2020-12-07 05:31] LABS: CHLORIDE 104 mEq/L (98-107)
[2020-12-07 06:22] LABS: BASOPHILS % 0.6 % (0.0-2.0); EOSINOPHILS % 7.4 % (0.0-5.0); HEMATOCRIT. 31.7 % (36.0-48.0); HEMOGLOBIN. 9.9 g/dL (12.0-16.0); LYMPHOCYTES % 13.7 % (20.0-50.0); MEAN CORPUSCULAR HEMOGLOBIN 28.8 pg (28.0-32.0); MEAN CORPUSCULAR VOLUME 92.1 fL (81.0-99.0); MEAN PLATELET VOLUME 8.9 fl (7.4-10.4); NEUTROPHILS % 65.3 % (40.0-76.0); PLATELET 197 x1000/uL (130-400); RED BLOOD CELL COUNT 3.44 mill/uL (4.2-5.4); RED CELL DISTRIBUTION WIDTH 22.6 % (11.6-14.6)
[2020-12-07] MEDS: ENOXAPARIN 80MG/0.8ML SYR SUBCUT SCH ×2 (08:40→17:04)
[2020-12-07] MEDS: FUROSEMIDE 40MG/4ML VIAL IVP SCH ×2 (08:40→17:04)
[2020-12-07] MEDS: ASPIRIN 81MG TABLET PO SCH (08:40)
[2020-12-07] MEDS: LISINOPRIL 2.5MG TABLET PO SCH (08:40)
[2020-12-07] MEDS: CARVEDILOL 3.125 MG TABLET PO SCH ×2 (08:41→20:52)
[2020-12-07] MEDS: AMIODARONE HCL 200 MG TABLET PO SCH (08:41)
[2020-12-07 09:04] LABS: PLATELET ESTIMATE NORMAL
[2020-12-07] MEDS ORDERED: LIDOCAINE HCL 1% 20ML VIAL (Pyxis) INJ ONE (10:12)
[2020-12-07] MEDS: DOBUTAMINE 250MG PREMIX 250 ML IV SCH ×2 (11:42→23:21)
[2020-12-07] MEDS: DOPAMINE 400MG/250ML PREMIX 250 ML IV SCH (11:42)
[2020-12-07] MEDS: ATORVASTATIN CALCIUM 20MG TABLET PO SCH (20:53)
[2020-12-07] MEDS: SODIUM CHLORIDE 0.9% INJ 3ML FLUSH IVF SCH (22:13)
[2020-12-08] VITALS (12 sets, daily range): BP systolic 89–126; BP diastolic 42–80
[2020-12-08] MEDS: IPRATROPIUM/ALBUTEROL 0.5-3(2.5)MG/3ML NEB HHN SCH ×4 (01:55→20:28)
[2020-12-08 06:12] LABS: BASOPHILS % 0.5 % (0.0-2.0); CHLORIDE 101 mEq/L (98-107); EOSINOPHILS % 5.7 % (0.0-5.0); HEMOGLOBIN. 8.6 g/dL (12.0-16.0); LYMPHOCYTES % 9.6 % (20.0-50.0); MEAN CORPUSCULAR HEMOGLOBIN 28.7 pg (28.0-32.0); MEAN CORPUSCULAR VOLUME 89.6 fL (81.0-99.0); MEAN PLATELET VOLUME 8.5 fl (7.4-10.4); NEUTROPHILS % 70.2 % (40.0-76.0); PLATELET 192 x1000/uL (130-400); RED BLOOD CELL COUNT 3.01 mill/uL (4.2-5.4); RED CELL DISTRIBUTION WIDTH 22.7 % (11.6-14.6)
[2020-12-08] MEDS: SODIUM CHLORIDE 0.9% INJ 3ML FLUSH IVF SCH ×3 (06:18→21:23)
[2020-12-08] MEDS: ENOXAPARIN 80MG/0.8ML SYR SUBCUT SCH ×2 (06:18→17:22)
[2020-12-08] MEDS: LISINOPRIL 2.5MG TABLET PO SCH (08:57)
[2020-12-08] MEDS: CARVEDILOL 3.125 MG TABLET PO SCH ×2 (08:58→20:20)
[2020-12-08] MEDS: ASPIRIN 81MG TABLET PO SCH (08:58)
[2020-12-08] MEDS: FUROSEMIDE 40MG/4ML VIAL IVP SCH ×2 (08:58→17:22)
[2020-12-08] MEDS: AMIODARONE HCL 200 MG TABLET PO SCH (09:08)
[2020-12-08] MEDS: DOBUTAMINE 250MG PREMIX 250 ML IV SCH (09:30)
[2020-12-08] MEDS: DOPAMINE 400MG/250ML PREMIX 250 ML IV SCH (09:31)
[2020-12-08] MEDS: ATORVASTATIN CALCIUM 20MG TABLET PO SCH (20:20)
[2020-12-09] VITALS (18 sets, daily range): BP systolic 96–145; BP diastolic 46–86
[2020-12-09] MEDS: IPRATROPIUM/ALBUTEROL 0.5-3(2.5)MG/3ML NEB HHN SCH ×4 (02:23→20:55)
[2020-12-09] MEDS: DOBUTAMINE 250MG PREMIX 250 ML IV SCH ×2 (05:02→21:55)
[2020-12-09] MEDS: ENOXAPARIN 80MG/0.8ML SYR SUBCUT SCH ×2 (05:03→18:31)
[2020-12-09] MEDS: SODIUM CHLORIDE 0.9% INJ 3ML FLUSH IVF SCH ×3 (06:47→21:40)
[2020-12-09 07:55] LABS: HEMOGLOBIN. 9.5 g/dL (12.0-16.0); LYMPHOCYTES % 11.2 % (20.0-50.0); MEAN CORPUSCULAR HEMOGLOBIN 28.6 pg (28.0-32.0); MEAN CORPUSCULAR VOLUME 89.6 fL (81.0-99.0); MEAN PLATELET VOLUME 8.8 fl (7.4-10.4); MONOCYTES % 13.6 % (2.0-8.0); NEUTROPHILS % 65.2 % (40.0-76.0); PLATELET 197 x1000/uL (130-400); RED BLOOD CELL COUNT 3.34 mill/uL (4.2-5.4); RED CELL DISTRIBUTION WIDTH 21.6 % (11.6-14.6)
[2020-12-09 08:06] LABS: CHLORIDE 98 mEq/L (98-107)
[2020-12-09] MEDS: FUROSEMIDE 40MG/4ML VIAL IVP SCH ×2 (09:00→16:22)
[2020-12-09] MEDS: AMIODARONE HCL 200 MG TABLET PO SCH (09:00)
[2020-12-09] MEDS: ASPIRIN 81MG TABLET PO SCH (09:01)
[2020-12-09] MEDS: CARVEDILOL 3.125 MG TABLET PO SCH ×2 (09:01→20:38)
[2020-12-09] MEDS: LISINOPRIL 2.5MG TABLET PO SCH (09:01)
[2020-12-09] MEDS ORDERED: DOPAMINE 400MG/250ML PREMIX 250 ML IV SCH (09:06)
[2020-12-09] MEDS ORDERED: DOBUTAMINE 250MG PREMIX 250 ML IV SCH (09:07)
[2020-12-09] MEDS: ONDANSETRON HCL 4MG/2ML INJ IV PRN ×2 (09:15→20:14)
[2020-12-09] MEDS: DOPAMINE 400MG/250ML PREMIX 250 ML IV SCH (12:11)
[2020-12-09] MEDS: ATORVASTATIN CALCIUM 20MG TABLET PO SCH (20:38)
[2020-12-10] VITALS (29 sets, daily range): BP systolic 87–125; BP diastolic 37–63
[2020-12-10] MEDS: IPRATROPIUM/ALBUTEROL 0.5-3(2.5)MG/3ML NEB HHN SCH ×5 (02:30→20:10)
[2020-12-10] MEDS: SODIUM CHLORIDE 0.9% INJ 3ML FLUSH IVF SCH ×3 (05:27→21:02)
[2020-12-10] MEDS: ENOXAPARIN 80MG/0.8ML SYR SUBCUT SCH ×2 (05:38→17:32)
[2020-12-10 05:51] LABS: CHLORIDE 97 mEq/L (98-107)
[2020-12-10 05:58] LABS: BASOPHILS % 0.7 % (0.0-2.0); EOSINOPHILS % 8.9 % (0.0-5.0); HEMATOCRIT. 30.1 % (36.0-48.0); HEMOGLOBIN. 9.6 g/dL (12.0-16.0); LYMPHOCYTES % 9.3 % (20.0-50.0); MEAN CORPUSCULAR HEMOGLOBIN 29.2 pg (28.0-32.0); MEAN CORPUSCULAR VOLUME 91.3 fL (81.0-99.0); MEAN PLATELET VOLUME 8.4 fl (7.4-10.4); MONOCYTES % 12.4 % (2.0-8.0); NEUTROPHILS % 68.7 % (40.0-76.0); PLATELET 180 x1000/uL (130-400); RED CELL DISTRIBUTION WIDTH 22.3 % (11.6-14.6)
[2020-12-10] MEDS: LISINOPRIL 2.5MG TABLET PO SCH (09:00)
[2020-12-10] MEDS: AMIODARONE HCL 200 MG TABLET PO SCH (09:00)
[2020-12-10] MEDS: CARVEDILOL 3.125 MG TABLET PO SCH ×3 (09:00→21:00)
[2020-12-10] MEDS: ASPIRIN 81MG TABLET PO SCH (09:12)
[2020-12-10] MEDS: FUROSEMIDE 40MG/4ML VIAL IVP SCH ×2 (09:12→17:31)
[2020-12-10] MEDS: ATORVASTATIN CALCIUM 20MG TABLET PO SCH (21:01)
[2020-12-10 22:58] LABS: BG BASE EXCESS 13.5 mmol/L (-2.0-2.0); BG CARBOXYHEMOGLOBIN 0.3 % (0.5-1.5); BG DEOXYHEMOGLOBIN 5.7 % (0.0-5.0); BG FRACTION INSPIRED OXYGEN 35; BG HCO3 ACT 43.5 mmol/L (22.0-26.0); BG METHEMOGLOBIN 0.3 % (0.0-1.5); BG OXYGEN SATURATION 94.3 % (92.0-98.5); BG OXYHEMOGLOBIN 93.7 % (94.0-97.0); BG PCO2 96.5 mmHg (35.0-45.0); BG PH 7.272 (7.350-7.450); BG PO2 78.4 mmHg (75.0-100.0); BG SAMPLE SITE RIGHT RADIAL; BG TOTAL HEMOGLOBIN 10.5 g/dL (12.0-18.0)
[2020-12-10] MEDS: DOBUTAMINE 250MG PREMIX 250 ML IV SCH (23:16)
[2020-12-11] VITALS (23 sets, daily range): BP systolic 101–131; BP diastolic 28–61
[2020-12-11] MEDS: IPRATROPIUM/ALBUTEROL 0.5-3(2.5)MG/3ML NEB HHN SCH ×4 (02:07→20:56)
[2020-12-11] MEDS: DOBUTAMINE 250MG PREMIX 250 ML IV SCH (03:48)
[2020-12-11 06:08] LABS: BG BASE EXCESS 15.8 mmol/L (-2.0-2.0); BG CARBOXYHEMOGLOBIN 0.7 % (0.5-1.5); BG DEOXYHEMOGLOBIN 7.2 % (0.0-5.0); BG FRACTION INSPIRED OXYGEN 45; BG HCO3 ACT 44.3 mmol/L (22.0-26.0); BG METHEMOGLOBIN 0.3 % (0.0-1.5); BG OXYGEN SATURATION 92.7 % (92.0-98.5); BG OXYHEMOGLOBIN 91.8 % (94.0-97.0); BG PCO2 82.5 mmHg (35.0-45.0); BG PH 7.348 (7.350-7.450); BG PO2 65.7 mmHg (75.0-100.0); BG TOTAL HEMOGLOBIN 10.1 g/dL (12.0-18.0); BG VENT MODE MASK - BIPAP
[2020-12-11 06:16] LABS: CHLORIDE 99 mEq/L (98-107)
[2020-12-11] MEDS: ENOXAPARIN 80MG/0.8ML SYR SUBCUT SCH ×2 (06:17→17:51)
[2020-12-11] MEDS: SODIUM CHLORIDE 0.9% INJ 3ML FLUSH IVF SCH ×3 (06:18→21:03)
[2020-12-11] MEDS: DOCUSATE SODIUM 100MG CAPSULE PO PRN ×2 (06:24→11:12)
[2020-12-11 06:25] LABS: BASOPHILS % 0.3 % (0.0-2.0); HEMATOCRIT. 28.6 % (36.0-48.0); HEMOGLOBIN. 8.9 g/dL (12.0-16.0); LYMPHOCYTES % 9.4 % (20.0-50.0); MEAN CORPUSCULAR HEMOGLOBIN 28.5 pg (28.0-32.0); MEAN CORPUSCULAR VOLUME 91.5 fL (81.0-99.0); MEAN PLATELET VOLUME 8.7 fl (7.4-10.4); MONOCYTES % 14.3 % (2.0-8.0); PLATELET 147 x1000/uL (130-400); RED BLOOD CELL COUNT 3.13 mill/uL (4.2-5.4); RED CELL DISTRIBUTION WIDTH 21.7 % (11.6-14.6)
[2020-12-11] MEDS: LISINOPRIL 2.5MG TABLET PO SCH (09:00)
[2020-12-11] MEDS: CARVEDILOL 3.125 MG TABLET PO SCH ×2 (09:00→21:03)
[2020-12-11] MEDS: ASPIRIN 81MG TABLET PO SCH (11:12)
[2020-12-11] MEDS: FUROSEMIDE 40MG/4ML VIAL IVP SCH ×2 (11:12→17:51)
[2020-12-11] MEDS: AMIODARONE HCL 200 MG TABLET PO SCH (11:23)
[2020-12-11] MEDS ORDERED: DOPAMINE 400MG/250ML PREMIX 250 ML IV SCH (15:15)
[2020-12-11] MEDS ORDERED: DOBUTAMINE 250MG PREMIX 250 ML IV SCH (21:00)
[2020-12-11] MEDS: ATORVASTATIN CALCIUM 20MG TABLET PO SCH (21:02)
[2020-12-12] VITALS (21 sets, daily range): BP systolic 104–161; BP diastolic 51–115
[2020-12-12] MEDS: IPRATROPIUM/ALBUTEROL 0.5-3(2.5)MG/3ML NEB HHN SCH ×4 (02:22→20:17)
[2020-12-12] MEDS: SODIUM CHLORIDE 0.9% INJ 3ML FLUSH IVF SCH ×3 (04:41→20:57)
[2020-12-12] MEDS: ENOXAPARIN 80MG/0.8ML SYR SUBCUT SCH ×2 (05:43→17:31)
[2020-12-12 06:49] LABS: HEMATOCRIT. 31.6 % (36.0-48.0); HEMOGLOBIN. 9.8 g/dL (12.0-16.0); MEAN CORPUSCULAR HEMOGLOBIN 28.5 pg (28.0-32.0); MEAN CORPUSCULAR VOLUME 91.7 fL (81.0-99.0); MEAN PLATELET VOLUME 8.7 fl (7.4-10.4); PLATELET 136 x1000/uL (130-400); RED BLOOD CELL COUNT 3.45 mill/uL (4.2-5.4); RED CELL DISTRIBUTION WIDTH 21.4 % (11.6-14.6)
[2020-12-12 06:56] LABS: CHLORIDE 96 mEq/L (98-107)
[2020-12-12] MEDS: ASPIRIN 81MG TABLET PO SCH (08:49)
[2020-12-12] MEDS: FUROSEMIDE 40MG/4ML VIAL IVP SCH ×2 (08:49→17:29)
[2020-12-12] MEDS: AMIODARONE HCL 200 MG TABLET PO SCH (08:51)
[2020-12-12] MEDS: CARVEDILOL 3.125 MG TABLET PO SCH ×2 (08:52→20:56)
[2020-12-12] MEDS: MORPHINE SULFATE 2 MG/ML CPJ (NOT FOR IM USE) IV PRN ×2 (10:59→17:34)
[2020-12-12 13:45] LABS: PLATELET ESTIMATE NORMAL
[2020-12-12] MEDS ORDERED: IBUPROFEN 600MG TABLET PO PRN (18:45)
[2020-12-12] MEDS: ATORVASTATIN CALCIUM 20MG TABLET PO SCH (20:56)
[2020-12-13] VITALS (19 sets, daily range): BP systolic 92–145; BP diastolic 33–76
[2020-12-13] MEDS: IPRATROPIUM/ALBUTEROL 0.5-3(2.5)MG/3ML NEB HHN SCH ×3 (01:43→21:14)
[2020-12-13] MEDS: ENOXAPARIN 80MG/0.8ML SYR SUBCUT SCH ×2 (06:16→16:58)
[2020-12-13] MEDS: SODIUM CHLORIDE 0.9% INJ 3ML FLUSH IVF SCH ×3 (06:16→23:25)
[2020-12-13 07:40] LABS: HEMATOCRIT. 29.7 % (36.0-48.0); HEMOGLOBIN. 9.5 g/dL (12.0-16.0); MEAN CORPUSCULAR HEMOGLOBIN 29.6 pg (28.0-32.0); MEAN CORPUSCULAR VOLUME 92.9 fL (81.0-99.0); MEAN PLATELET VOLUME 8.9 fl (7.4-10.4); PLATELET 114 x1000/uL (130-400); RED BLOOD CELL COUNT 3.19 mill/uL (4.2-5.4); RED CELL DISTRIBUTION WIDTH 21.2 % (11.6-14.6)
[2020-12-13 08:06] LABS: CHLORIDE 95 mEq/L (98-107)
[2020-12-13] MEDS: ASPIRIN 81MG TABLET PO SCH (09:26)
[2020-12-13] MEDS: FUROSEMIDE 40MG/4ML VIAL IVP SCH ×2 (09:26→16:58)
[2020-12-13] MEDS: AMIODARONE HCL 200 MG TABLET PO SCH (09:26)
[2020-12-13] MEDS: LISINOPRIL 2.5MG TABLET PO SCH (09:28)
[2020-12-13] MEDS: CARVEDILOL 3.125 MG TABLET PO SCH ×2 (09:29→21:00)
[2020-12-13] MEDS: ATORVASTATIN CALCIUM 20MG TABLET PO SCH (21:06)
[2020-12-13 22:43] LABS: PLATELET ESTIMATE DECREASED
[2020-12-13] MEDS: MORPHINE SULFATE 2 MG/ML CPJ (NOT FOR IM USE) IV PRN (23:26)
[2020-12-14] VITALS (15 sets, daily range): BP systolic 93–123; BP diastolic 35–60
[2020-12-14] MEDS: IPRATROPIUM/ALBUTEROL 0.5-3(2.5)MG/3ML NEB HHN SCH ×5 (01:29→20:03)
[2020-12-14] MEDS: SODIUM CHLORIDE 0.9% INJ 3ML FLUSH IVF SCH ×3 (06:23→21:29)
[2020-12-14] MEDS: ENOXAPARIN 80MG/0.8ML SYR SUBCUT SCH ×2 (06:23→17:18)
[2020-12-14] MEDS: CARVEDILOL 3.125 MG TABLET PO SCH ×2 (09:00→21:29)
[2020-12-14] MEDS: ASPIRIN 81MG TABLET PO SCH (09:27)
[2020-12-14] MEDS: AMIODARONE HCL 200 MG TABLET PO SCH (09:27)
[2020-12-14] MEDS: FUROSEMIDE 40MG/4ML VIAL IVP SCH ×2 (09:27→17:14)
[2020-12-14] MEDS ORDERED: ALBUMIN HUMAN 25GM/100ML (25%) IV NR (18:00)
[2020-12-14] MEDS: ATORVASTATIN CALCIUM 20MG TABLET PO SCH (21:29)
[2020-12-15] VITALS (15 sets, daily range): BP systolic 102–136; BP diastolic 47–59
[2020-12-15] MEDS: IPRATROPIUM/ALBUTEROL 0.5-3(2.5)MG/3ML NEB HHN SCH ×5 (01:40→20:29)
[2020-12-15] MEDS: SODIUM CHLORIDE 0.9% INJ 3ML FLUSH IVF SCH ×3 (06:15→22:00)
[2020-12-15] MEDS: ENOXAPARIN 80MG/0.8ML SYR SUBCUT SCH ×2 (06:31→18:23)
[2020-12-15] MEDS: CARVEDILOL 3.125 MG TABLET PO SCH ×2 (09:00→22:48)
[2020-12-15] MEDS: FUROSEMIDE 40MG/4ML VIAL IVP SCH ×2 (09:00→17:27)
[2020-12-15] MEDS: LISINOPRIL 2.5MG TABLET PO SCH (09:00)
[2020-12-15] MEDS: ASPIRIN 81MG TABLET PO SCH (11:10)
[2020-12-15] MEDS: AMIODARONE HCL 200 MG TABLET PO SCH (11:15)
[2020-12-15 12:37] LABS: CHLORIDE 94 mEq/L (98-107); HEMATOCRIT. 29.9 % (36.0-48.0); HEMOGLOBIN. 9.1 g/dL (12.0-16.0); MEAN CORPUSCULAR HEMOGLOBIN 28.8 pg (28.0-32.0); MEAN CORPUSCULAR VOLUME 94.5 fL (81.0-99.0); MEAN PLATELET VOLUME 9.7 fl (7.4-10.4); PLATELET 144 x1000/uL (130-400); RED BLOOD CELL COUNT 3.16 mill/uL (4.2-5.4); RED CELL DISTRIBUTION WIDTH 21.7 % (11.6-14.6)
[2020-12-15] MEDS: ATORVASTATIN CALCIUM 20MG TABLET PO SCH (21:49)
[2020-12-16] VITALS (27 sets, daily range): BP systolic 97–147; BP diastolic 48–76
[2020-12-16] MEDS: IPRATROPIUM/ALBUTEROL 0.5-3(2.5)MG/3ML NEB HHN SCH ×4 (00:21→20:20)
[2020-12-16 01:20] LABS: PLATELET ESTIMATE NORMAL
[2020-12-16] MEDS: SODIUM CHLORIDE 0.9% INJ 3ML FLUSH IVF SCH ×3 (06:00→21:00)
[2020-12-16] MEDS: ENOXAPARIN 80MG/0.8ML SYR SUBCUT SCH ×2 (06:00→18:04)
[2020-12-16 06:50] LABS: CHLORIDE 93 mEq/L (98-107)
[2020-12-16 06:57] LABS: HEMATOCRIT. 29.5 % (36.0-48.0); HEMOGLOBIN. 9.4 g/dL (12.0-16.0); MEAN CORPUSCULAR HEMOGLOBIN 29.3 pg (28.0-32.0); MEAN CORPUSCULAR VOLUME 92.2 fL (81.0-99.0); MEAN PLATELET VOLUME 9.7 fl (7.4-10.4); PLATELET 150 x1000/uL (130-400); RED CELL DISTRIBUTION WIDTH 20.2 % (11.6-14.6)
[2020-12-16] MEDS: ASPIRIN 81MG TABLET PO SCH (08:43)
[2020-12-16] MEDS: AMIODARONE HCL 200 MG TABLET PO SCH (08:45)
[2020-12-16] MEDS: CARVEDILOL 3.125 MG TABLET PO SCH ×2 (08:47→20:59)
[2020-12-16] MEDS: FUROSEMIDE 40MG/4ML VIAL IVP SCH ×2 (08:47→17:03)
[2020-12-16 13:45] LABS: PLATELET ESTIMATE NORMAL
[2020-12-16] MEDS: ATORVASTATIN CALCIUM 20MG TABLET PO SCH (20:59)
[2020-12-17] VITALS (11 sets, daily range): BP systolic 115–134; BP diastolic 56–68
[2020-12-17] MEDS: IPRATROPIUM/ALBUTEROL 0.5-3(2.5)MG/3ML NEB HHN SCH ×3 (02:02→14:54)
[2020-12-17] MEDS: ENOXAPARIN 80MG/0.8ML SYR SUBCUT SCH (06:17)
[2020-12-17] MEDS: SODIUM CHLORIDE 0.9% INJ 3ML FLUSH IVF SCH ×2 (06:17→13:08)
[2020-12-17] MEDS: FUROSEMIDE 40MG/4ML VIAL IVP SCH ×2 (08:43→17:58)
[2020-12-17] MEDS: ASPIRIN 81MG TABLET PO SCH (08:43)
[2020-12-17] MEDS: LISINOPRIL 2.5MG TABLET PO SCH (08:44)
[2020-12-17] MEDS: AMIODARONE HCL 200 MG TABLET PO SCH (08:44)
[2020-12-17] MEDS: CARVEDILOL 3.125 MG TABLET PO SCH (08:44)
[2020-12-17] MEDS ORDERED: POTASSIUM CHLORIDE 20MEQ TABLET SR PO NR (09:00)
[2020-12-17] MEDS ORDERED: APIXABAN 5 MG TABLET PO SCH (17:00)
== END 2020-12-17 19:08 | disposition home health service (06) | DRG 291 ==
LOC: ER 15:49 → 8WST 16:52 → EDBEDREQTM 17:16 → EDBEDREQ 17:16 → ENRESERV 20:51 → 5EST 12-06 16:00
PROVIDERS: ADMIT Internal Medicine; ATTEND Internal Medicine
PROC: 5A09357 Assistance with Respiratory Ventilation, Less than 24 Consecutive Hours, Continuous Positive Airway Pressure (ICD-10-PCS; 2020-12-06)
PROC: 02HV33Z Insertion of Infusion Device into Superior Vena Cava, Percutaneous Approach (ICD-10-PCS; principal; 2020-12-07)
PROC: B548ZZA Ultrasonography of Superior Vena Cava, Guidance (ICD-10-PCS; 2020-12-07)
PROC: 5A09357 Assistance with Respiratory Ventilation, Less than 24 Consecutive Hours, Continuous Positive Airway Pressure (ICD-10-PCS; 2020-12-10)
PROC: 5A09357 Assistance with Respiratory Ventilation, Less than 24 Consecutive Hours, Continuous Positive Airway Pressure (ICD-10-PCS; 2020-12-12)
PROC: 5A09357 Assistance with Respiratory Ventilation, Less than 24 Consecutive Hours, Continuous Positive Airway Pressure (ICD-10-PCS; 2020-12-14)
PROC: 5A09357 Assistance with Respiratory Ventilation, Less than 24 Consecutive Hours, Continuous Positive Airway Pressure (ICD-10-PCS; 2020-12-16)
DX: I11.0 Hypertensive heart disease with heart failure (principal); J96.00 Acute respiratory failure, unspecified whether with hypoxia or hypercapnia; E66.2 Morbid (severe) obesity with alveolar hypoventilation; G93.40 Encephalopathy, unspecified; I48.20 Chronic atrial fibrillation, unspecified; I50.33 Acute on chronic diastolic (congestive) heart failure; I27.21 Secondary pulmonary arterial hypertension; I25.5 Ischemic cardiomyopathy; D64.9 Anemia, unspecified; E78.5 Hyperlipidemia, unspecified; J44.9 Chronic obstructive pulmonary disease, unspecified; M1A.9XX0 Chronic gout, unspecified, without tophus (tophi); I87.2 Venous insufficiency (chronic) (peripheral); I48.0 Paroxysmal atrial fibrillation; I35.0 Nonrheumatic aortic (valve) stenosis; I27.29 Other secondary pulmonary hypertension; E11.9 Type 2 diabetes mellitus without complications; I50.9 Heart failure, unspecified; I07.1 Rheumatic tricuspid insufficiency; I25.10 Atherosclerotic heart disease of native coronary artery without angina pectoris; I07.9 Rheumatic tricuspid valve disease, unspecified; M19.90 Unspecified osteoarthritis, unspecified site; F17.200 Nicotine dependence, unspecified, uncomplicated; Z88.8 Allergy status to other drugs, medicaments and biological substances; Z68.32 Body mass index [BMI] 32.0-32.9, adult; Z79.01 Long term (current) use of anticoagulants; Z91.14 Patient's other noncompliance with medication regimen; Z95.1 Presence of aortocoronary bypass graft; Z95.5 Presence of coronary angioplasty implant and graft; Z95.810 Presence of automatic (implantable) cardiac defibrillator; Z96.653 Presence of artificial knee joint, bilateral; Z99.81 Dependence on supplemental oxygen; I49.8 Other specified cardiac arrhythmias
CPT/HCPCS: 36415; 36600; 71045; 76937; 80048; 80053; 82040; 82375; 82550; 82553; 82805; 83735; 83880; 84484; 85025; 93005; 93306; 93970; 94003; 94640; 94660; 97110; 97162; 97166; 97530; 99285; C1725; C1893; J1200; J1250; J1265; J1650; J1940; J2060; J2270; J2405; J3490; P9047

== ENCOUNTER 2021-03-20 18:36 | Inpatient (IN) | payer MEDICARE, MEDICAID ==
[~2021-03-20] VITALS: Ht 149.9 cm; Wt 74.4 kg
[2021-03-20] VITALS (26 sets, daily range): BP systolic 58–161; BP diastolic 24–103
[~2021-03-20 18:36] MED LIST changes: -CLOP-31 PO; +CLOP75TA4 PO
[2021-03-20] MEDS ORDERED: EPINEPHRINE 10 MG in SODIUM CHLORIDE 0.9% 240 ML IV PRN ×2 (19:00→19:09)
[2021-03-20] MEDS ORDERED: FENTANYL CITRATE/PF 2,500 MCG in SODIUM CHLORIDE 0.9% 200 ML IV PRN (21:30)
[2021-03-20] MEDS ORDERED: IPRATROPIUM/ALBUTEROL 0.5-3(2.5)MG/3ML NEB HHN PRN (21:30)
[2021-03-20] MEDS ORDERED: MIDAZOLAM HCL 100 MG in SODIUM CHLORIDE 0.9% 80 ML IV PRN (21:30)
[2021-03-20 21:43] LABS: BG BASE EXCESS 19.8 mmol/L (-2.0-2.0); BG CARBOXYHEMOGLOBIN 0.1 % (0.5-1.5); BG DEOXYHEMOGLOBIN 0.4 % (0.0-5.0); BG FRACTION INSPIRED OXYGEN 100; BG HCO3 ACT 43.7 mmol/L (22.0-26.0); BG METHEMOGLOBIN 0.1 % (0.0-1.5); BG OXYGEN SATURATION 99.6 % (92.0-98.5); BG OXYHEMOGLOBIN 99.4 % (94.0-97.0); BG PCO2 45.7 mmHg (35.0-45.0); BG PH 7.598 (7.350-7.450); BG PO2 263.7 mmHg (75.0-100.0); BG SAMPLE SITE RIGHT RADIAL; BG TOTAL HEMOGLOBIN 11.5 g/dL (12.0-18.0); BG VENT MODE VENT - AC
[2021-03-20] MEDS ORDERED: EPINEPHRINE 5 MG in SODIUM CHLORIDE 0.9% 245 ML IV PRN (23:00)
[2021-03-20 23:07] LABS: HEMATOCRIT. 33.2 % (36.0-48.0); HEMOGLOBIN. 10.4 g/dL (12.0-16.0); MEAN CORPUSCULAR HEMOGLOBIN 28.1 pg (28.0-32.0); MEAN CORPUSCULAR VOLUME 89.9 fL (81.0-99.0); MEAN PLATELET VOLUME 9.9 fl (7.4-10.4); PLATELET 121 x1000/uL (130-400); RED CELL DISTRIBUTION WIDTH 19.3 % (11.6-14.6)
[2021-03-20 23:14] LABS: CHLORIDE 94 mEq/L (98-107)
[2021-03-20 23:17] LABS: D-DIMER 2.48 mg/L FEU (<0.50); INR 1.4; PARTIAL THROMBOPLASTIN TIME 45.1 sec (23.4-31.0); PROTHROMBIN TIME 14.2 sec (9.6-11.0)
[2021-03-20 23:19] LABS: PHOSPHORUS 2.5 mg/dL (2.5-4.9)
[2021-03-20] MEDS: PIPERACILLIN/TAZOBACTAM 2.25 G in DEXTROSE 5% WATER 50 ML IV SCH (23:22)
[2021-03-21] VITALS (87 sets, daily range): BP systolic 104–167; BP diastolic 38–103
[2021-03-21] MEDS ORDERED: VANCOMYCIN 1 G PREMIX 200 ML IV SCH
[2021-03-21] MEDS: IPRATROPIUM/ALBUTEROL 0.5-3(2.5)MG/3ML NEB HHN SCH ×6 (00:16→20:37)
[2021-03-21 00:50] LABS: CLARITY URINE CLEAR (CLEAR); COLOR URINE YELLOW (YELLOW); KETONES URINE NEGATIVE (NEGATIVE); LEUKOCYTE ESTERASE URINE TRACE (NEGATIVE); NITRITE URINE NEGATIVE (NEGATIVE); OCCULT BLOOD URINE TRACE (NEGATIVE); PH URINE >=9.0 (4.5-8.0); PROTEIN URINE TRACE (NEGATIVE); SPECIFIC GRAVITY URINE 1.008 (1.005-1.030)
[2021-03-21] MEDS ORDERED: POTASSIUM CHLORIDE INJ 40 MEQ in DEXT 5% WATER 250 ML IV SCH (01:00)
[2021-03-21 03:12] LABS: PLATELET ESTIMATE DECREASED
[2021-03-21] MEDS: PIPERACILLIN/TAZOBACTAM 2.25 G in DEXTROSE 5% WATER 50 ML IV SCH ×4 (05:25→23:22)
[2021-03-21 05:36] LABS: HEMATOCRIT. 31.4 % (36.0-48.0); HEMOGLOBIN. 10.3 g/dL (12.0-16.0); MEAN CORPUSCULAR HEMOGLOBIN 28.9 pg (28.0-32.0); MEAN CORPUSCULAR VOLUME 87.9 fL (81.0-99.0); MEAN PLATELET VOLUME 9.3 fl (7.4-10.4); PLATELET 136 x1000/uL (130-400); RED BLOOD CELL COUNT 3.57 mill/uL (4.2-5.4); RED CELL DISTRIBUTION WIDTH 19.4 % (11.6-14.6)
[2021-03-21 05:44] LABS: CHLORIDE 95 mEq/L (98-107)
[2021-03-21 05:53] LABS: PHOSPHORUS 2.2 mg/dL (2.5-4.9)
[2021-03-21 09:06] LABS: BG BASE EXCESS 20.1 mmol/L (-2.0-2.0); BG CARBOXYHEMOGLOBIN 0.3 % (0.5-1.5); BG DEOXYHEMOGLOBIN 4.5 % (0.0-5.0); BG FRACTION INSPIRED OXYGEN 40; BG HCO3 ACT 44.1 mmol/L (22.0-26.0); BG METHEMOGLOBIN 0.3 % (0.0-1.5); BG OXYGEN SATURATION 95.5 % (92.0-98.5); BG OXYHEMOGLOBIN 94.9 % (94.0-97.0); BG PCO2 47.4 mmHg (35.0-45.0); BG PH 7.587 (7.350-7.450); BG PO2 70.6 mmHg (75.0-100.0); BG SAMPLE SITE RIGHT RADIAL; BG TOTAL HEMOGLOBIN 10.9 g/dL (12.0-18.0); BG VENT MODE VENT - AC
[2021-03-21] MEDS ORDERED: ACETAZOLAMIDE SODIUM 500MG/VIAL IV NR (11:00)
[2021-03-21] MEDS: FUROSEMIDE 40MG/4ML VIAL IVP SCH (11:49)
[2021-03-21] MEDS: ASPIRIN 81MG TABLET PO SCH (11:49)
[2021-03-21] MEDS: AMIODARONE HCL 200 MG TABLET PO SCH (11:49)
[2021-03-21] MEDS: ENOXAPARIN 80MG/0.8ML SYR SUBCUT SCH ×2 (11:50→21:46)
[2021-03-21 14:05] LABS: PLATELET ESTIMATE NORMAL
[2021-03-21 15:42] LABS: BG BASE EXCESS 22.5 mmol/L (-2.0-2.0); BG CARBOXYHEMOGLOBIN 0.7 % (0.5-1.5); BG DEOXYHEMOGLOBIN 2.7 % (0.0-5.0); BG FRACTION INSPIRED OXYGEN 40; BG HCO3 ACT 44.7 mmol/L (22.0-26.0); BG METHEMOGLOBIN 0.3 % (0.0-1.5); BG OXYGEN SATURATION 97.3 % (92.0-98.5); BG OXYHEMOGLOBIN 96.3 % (94.0-97.0); BG PH 7.688 (7.350-7.450); BG PO2 76.7 mmHg (75.0-100.0); BG SAMPLE SITE RIGHT RADIAL; BG TOTAL HEMOGLOBIN 11.9 g/dL (12.0-18.0); BG TOTAL RESPIRATORY RATE 17 b/min; BG VENT MODE VENT - AC
[2021-03-21] MEDS: VANCOMYCIN 750 MG PREMIX 150 ML IV SCH (18:20)
[2021-03-21] MEDS ORDERED: SODIUM CHLORIDE 0.9% 250 ML IV ONE (19:00)
[2021-03-21 21:07] LABS: BG BASE EXCESS 17.5 mmol/L (-2.0-2.0); BG CARBOXYHEMOGLOBIN 0.3 % (0.5-1.5); BG DEOXYHEMOGLOBIN 2.8 % (0.0-5.0); BG FRACTION INSPIRED OXYGEN 40; BG HCO3 ACT 42.4 mmol/L (22.0-26.0); BG METHEMOGLOBIN 0.3 % (0.0-1.5); BG OXYGEN SATURATION 97.2 % (92.0-98.5); BG OXYHEMOGLOBIN 96.6 % (94.0-97.0); BG PCO2 51.2 mmHg (35.0-45.0); BG PH 7.536 (7.350-7.450); BG SAMPLE SITE RIGHT BRACHIAL; BG TOTAL HEMOGLOBIN 11.4 g/dL (12.0-18.0); BG VENT MODE VENT - SIMV
[2021-03-21] MEDS: ATORVASTATIN CALCIUM 20MG TABLET PO SCH (21:46)
[2021-03-21] MEDS ORDERED: IOHEXOL-350 100 ML BOTTLE ONE (22:20)
[2021-03-22] VITALS (98 sets, daily range): BP systolic 88–147; BP diastolic 49–84
[2021-03-22] MEDS: IPRATROPIUM/ALBUTEROL 0.5-3(2.5)MG/3ML NEB HHN SCH ×6 (00:10→20:26)
[2021-03-22] MEDS: PIPERACILLIN/TAZOBACTAM 2.25 G in DEXTROSE 5% WATER 50 ML IV SCH ×4 (05:27→23:14)
[2021-03-22 05:59] LABS: HEMATOCRIT. 30.4 % (36.0-48.0); HEMOGLOBIN. 9.8 g/dL (12.0-16.0); MEAN CORPUSCULAR HEMOGLOBIN 28.1 pg (28.0-32.0); MEAN CORPUSCULAR VOLUME 87.7 fL (81.0-99.0); MEAN PLATELET VOLUME 9.3 fl (7.4-10.4); PLATELET 173 x1000/uL (130-400); RED BLOOD CELL COUNT 3.47 mill/uL (4.2-5.4); RED CELL DISTRIBUTION WIDTH 19.2 % (11.6-14.6)
[2021-03-22 06:09] LABS: CHLORIDE 98 mEq/L (98-107)
[2021-03-22 08:10] LABS: BG BASE EXCESS 15.3 mmol/L (-2.0-2.0); BG DEOXYHEMOGLOBIN 2.7 % (0.0-5.0); BG FRACTION INSPIRED OXYGEN 40; BG HCO3 ACT 40.5 mmol/L (22.0-26.0); BG METHEMOGLOBIN 0.3 % (0.0-1.5); BG OXYGEN SATURATION 97.3 % (92.0-98.5); BG PCO2 53.1 mmHg (35.0-45.0); BG PO2 95.1 mmHg (75.0-100.0); BG SAMPLE SITE RIGHT RADIAL; BG TOTAL HEMOGLOBIN 10.8 g/dL (12.0-18.0); BG VENT MODE VENT - SIMV
[2021-03-22] MEDS ORDERED: POTASSIUM CHLORIDE INJ 40 MEQ in DEXT 5% WATER 250 ML IV NR ×2 (08:30→15:00)
[2021-03-22] MEDS: AMIODARONE HCL 200 MG TABLET PO SCH (08:39)
[2021-03-22] MEDS: ASPIRIN 81MG TABLET PO SCH (08:39)
[2021-03-22] MEDS: FUROSEMIDE 40MG/4ML VIAL IVP SCH (08:39)
[2021-03-22] MEDS ORDERED: FUROSEMIDE 40MG/4ML VIAL IVP SCH (09:00)
[2021-03-22] MEDS: ENOXAPARIN 80MG/0.8ML SYR SUBCUT SCH ×2 (10:22→21:01)
[2021-03-22] MEDS: CARVEDILOL 3.125 MG TABLET PO SCH ×2 (10:30→21:00)
[2021-03-22] MEDS: LISINOPRIL 2.5MG TABLET PO SCH (10:30)
[2021-03-22 12:28] LABS: PLATELET ESTIMATE NORMAL
[2021-03-22] MEDS ORDERED: ACETAZOLAMIDE SODIUM 500MG/VIAL IV NR (13:30)
[2021-03-22] MEDS: VANCOMYCIN 750 MG PREMIX 150 ML IV SCH (18:04)
[2021-03-22] MEDS: ATORVASTATIN CALCIUM 20MG TABLET PO SCH (21:01)
[2021-03-23] VITALS (91 sets, daily range): BP systolic 83–157; BP diastolic 30–78
[2021-03-23] MEDS: IPRATROPIUM/ALBUTEROL 0.5-3(2.5)MG/3ML NEB HHN SCH ×6 (00:25→21:05)
[2021-03-23] MEDS: PIPERACILLIN/TAZOBACTAM 2.25 G in DEXTROSE 5% WATER 50 ML IV SCH ×4 (05:32→23:23)
[2021-03-23 06:02] LABS: CHLORIDE 101 mEq/L (98-107)
[2021-03-23 06:03] LABS: BASOPHILS % 0.4 % (0.0-2.0); EOSINOPHILS % 3.4 % (0.0-5.0); HEMATOCRIT. 29.4 % (36.0-48.0); HEMOGLOBIN. 9.3 g/dL (12.0-16.0); LYMPHOCYTES % 7.8 % (20.0-50.0); MEAN CORPUSCULAR HEMOGLOBIN 28.2 pg (28.0-32.0); MEAN PLATELET VOLUME 9.4 fl (7.4-10.4); NEUTROPHILS % 74.4 % (40.0-76.0); PLATELET 199 x1000/uL (130-400); RED BLOOD CELL COUNT 3.31 mill/uL (4.2-5.4); RED CELL DISTRIBUTION WIDTH 19.9 % (11.6-14.6)
[2021-03-23] MEDS ORDERED: POTASSIUM CHLORIDE INJ 40 MEQ in DEXT 5% WATER 250 ML IV SCH (08:00)
[2021-03-23] MEDS ORDERED: POTASSIUM CHLORIDE 20MEQ/PACKET PO SCH (08:00)
[2021-03-23 08:44] LABS: BG BASE EXCESS 10.8 mmol/L (-2.0-2.0); BG CARBOXYHEMOGLOBIN 0.3 % (0.5-1.5); BG DEOXYHEMOGLOBIN 1.2 % (0.0-5.0); BG FRACTION INSPIRED OXYGEN 40; BG HCO3 ACT 35.2 mmol/L (22.0-26.0); BG OXYGEN SATURATION 98.8 % (92.0-98.5); BG OXYHEMOGLOBIN 98.5 % (94.0-97.0); BG PCO2 46.6 mmHg (35.0-45.0); BG PH 7.496 (7.350-7.450); BG PO2 145.5 mmHg (75.0-100.0); BG SAMPLE SITE LEFT RADIAL; BG TOTAL HEMOGLOBIN 9.7 g/dL (12.0-18.0); BG VENT MODE VENT - SIMV
[2021-03-23] MEDS: LISINOPRIL 2.5MG TABLET PO SCH (09:00)
[2021-03-23] MEDS: CARVEDILOL 3.125 MG TABLET PO SCH ×2 (09:00→21:00)
[2021-03-23] MEDS: FUROSEMIDE 20MG/2ML VIAL IVP SCH (09:24)
[2021-03-23] MEDS: AMIODARONE HCL 200 MG TABLET PO SCH (09:25)
[2021-03-23] MEDS: ASPIRIN 81MG TABLET PO SCH (09:25)
[2021-03-23] MEDS: ENOXAPARIN 80MG/0.8ML SYR SUBCUT SCH ×2 (09:26→21:39)
[2021-03-23] MEDS: VANCOMYCIN 750 MG PREMIX 150 ML IV SCH (12:52)
[2021-03-23] MEDS: ATORVASTATIN CALCIUM 20MG TABLET PO SCH (21:37)
[2021-03-24] VITALS (76 sets, daily range): BP systolic 81–135; BP diastolic 40–92
[2021-03-24] MEDS: IPRATROPIUM/ALBUTEROL 0.5-3(2.5)MG/3ML NEB HHN SCH ×6 (00:21→21:01)
[2021-03-24] MEDS: PIPERACILLIN/TAZOBACTAM 2.25 G in DEXTROSE 5% WATER 50 ML IV SCH ×2 (04:45→12:20)
[2021-03-24] MEDS: VANCOMYCIN 750 MG PREMIX 150 ML IV SCH (05:52)
[2021-03-24 06:09] LABS: CHLORIDE 106 mEq/L (98-107)
[2021-03-24 06:13] LABS: BASOPHILS % 0.1 % (0.0-2.0); EOSINOPHILS % 8.2 % (0.0-5.0); HEMATOCRIT. 29.3 % (36.0-48.0); HEMOGLOBIN. 9.2 g/dL (12.0-16.0); LYMPHOCYTES % 8.4 % (20.0-50.0); MEAN CORPUSCULAR HEMOGLOBIN 27.8 pg (28.0-32.0); MEAN CORPUSCULAR VOLUME 88.7 fL (81.0-99.0); MEAN PLATELET VOLUME 9.2 fl (7.4-10.4); MONOCYTES % 13.7 % (2.0-8.0); NEUTROPHILS % 69.6 % (40.0-76.0); PLATELET 188 x1000/uL (130-400); RED CELL DISTRIBUTION WIDTH 20.4 % (11.6-14.6)
[2021-03-24] MEDS ORDERED: POTASSIUM CHLORIDE 20MEQ/PACKET PO SCH (07:30)
[2021-03-24] MEDS ORDERED: POTASSIUM CHLORIDE INJ 40 MEQ in DEXT 5% WATER 250 ML IV ONE (07:30)
[2021-03-24 08:18] LABS: BG BASE EXCESS 10.3 mmol/L (-2.0-2.0); BG CARBOXYHEMOGLOBIN 0.3 % (0.5-1.5); BG DEOXYHEMOGLOBIN 4.3 % (0.0-5.0); BG FRACTION INSPIRED OXYGEN 30; BG HCO3 ACT 35.5 mmol/L (22.0-26.0); BG METHEMOGLOBIN 0.1 % (0.0-1.5); BG OXYGEN SATURATION 95.7 % (92.0-98.5); BG OXYHEMOGLOBIN 95.3 % (94.0-97.0); BG PCO2 51.7 mmHg (35.0-45.0); BG PH 7.455 (7.350-7.450); BG PO2 77.5 mmHg (75.0-100.0); BG SAMPLE SITE LEFT RADIAL; BG TOTAL HEMOGLOBIN 9.7 g/dL (12.0-18.0); BG TOTAL RESPIRATORY RATE 20 b/min; BG VENT MODE VENT - SIMV
[2021-03-24] MEDS: CARVEDILOL 3.125 MG TABLET PO SCH ×2 (08:26→21:00)
[2021-03-24] MEDS: LISINOPRIL 2.5MG TABLET PO SCH (08:27)
[2021-03-24] MEDS: AMIODARONE HCL 200 MG TABLET PO SCH (08:28)
[2021-03-24] MEDS: ASPIRIN 81MG TABLET PO SCH (08:28)
[2021-03-24] MEDS: FUROSEMIDE 20MG/2ML VIAL IVP SCH (08:28)
[2021-03-24] MEDS: ENOXAPARIN 80MG/0.8ML SYR SUBCUT SCH ×2 (08:35→22:19)
[2021-03-24] MEDS: PIPERACILLIN/TAZOBACTAM 3.375G in DEXT 5% WATER 50ML IV SCH (17:28)
[2021-03-24] MEDS: ATORVASTATIN CALCIUM 20MG TABLET PO SCH (22:19)
[2021-03-25] VITALS (90 sets, daily range): BP systolic 79–164; BP diastolic 46–127
[2021-03-25] MEDS: VANCOMYCIN 750 MG PREMIX 150 ML IV SCH ×2 (00:13→17:26)
[2021-03-25] MEDS: PIPERACILLIN/TAZOBACTAM 3.375G in DEXT 5% WATER 50ML IV SCH ×4 (00:13→17:26)
[2021-03-25] MEDS: IPRATROPIUM/ALBUTEROL 0.5-3(2.5)MG/3ML NEB HHN SCH ×6 (01:20→20:05)
[2021-03-25 06:45] LABS: HEMATOCRIT. 28.9 % (36.0-48.0); HEMOGLOBIN. 9.2 g/dL (12.0-16.0); MEAN CORPUSCULAR HEMOGLOBIN 28.4 pg (28.0-32.0); MEAN CORPUSCULAR VOLUME 89.2 fL (81.0-99.0); MEAN PLATELET VOLUME 9.5 fl (7.4-10.4); PLATELET 226 x1000/uL (130-400); RED BLOOD CELL COUNT 3.24 mill/uL (4.2-5.4); RED CELL DISTRIBUTION WIDTH 19.7 % (11.6-14.6)
[2021-03-25 06:50] LABS: CHLORIDE 105 mEq/L (98-107)
[2021-03-25 07:50] LABS: BG BASE EXCESS 6.7 mmol/L (-2.0-2.0); BG CARBOXYHEMOGLOBIN 0.2 % (0.5-1.5); BG DEOXYHEMOGLOBIN 5.4 % (0.0-5.0); BG HCO3 ACT 31.5 mmol/L (22.0-26.0); BG METHEMOGLOBIN 0.3 % (0.0-1.5); BG OXYGEN SATURATION 94.6 % (92.0-98.5); BG OXYHEMOGLOBIN 94.1 % (94.0-97.0); BG PH 7.453 (7.350-7.450); BG PO2 72.9 mmHg (75.0-100.0); BG SAMPLE SITE RIGHT RADIAL; BG TOTAL HEMOGLOBIN 10.2 g/dL (12.0-18.0); BG VENT MODE VENT - SIMV
[2021-03-25] MEDS: CARVEDILOL 3.125 MG TABLET PO SCH ×2 (08:10→21:15)
[2021-03-25] MEDS: LISINOPRIL 2.5MG TABLET PO SCH (08:10)
[2021-03-25 08:18] LABS: PLATELET ESTIMATE NORMAL
[2021-03-25] MEDS: AMIODARONE HCL 200 MG TABLET PO SCH (08:43)
[2021-03-25] MEDS: FUROSEMIDE 20MG/2ML VIAL IVP SCH (08:43)
[2021-03-25] MEDS: ASPIRIN 81MG TABLET PO SCH (08:43)
[2021-03-25] MEDS: ENOXAPARIN 80MG/0.8ML SYR SUBCUT SCH ×2 (08:45→21:16)
[2021-03-25] MEDS ORDERED: POTASSIUM CHLORIDE INJ 40 MEQ in DEXT 5% WATER 250 ML IV NR (13:00)
[2021-03-25 13:10] LABS: BG BASE EXCESS 8.8 mmol/L (-2.0-2.0); BG CARBOXYHEMOGLOBIN 0.3 % (0.5-1.5); BG DEOXYHEMOGLOBIN 3.9 % (0.0-5.0); BG FRACTION INSPIRED OXYGEN 35; BG HCO3 ACT 32.5 mmol/L (22.0-26.0); BG METHEMOGLOBIN 0.1 % (0.0-1.5); BG OXYGEN SATURATION 96.1 % (92.0-98.5); BG OXYHEMOGLOBIN 95.7 % (94.0-97.0); BG PCO2 41.2 mmHg (35.0-45.0); BG PH 7.515 (7.350-7.450); BG PO2 73.8 mmHg (75.0-100.0); BG SAMPLE SITE RIGHT RADIAL; BG TOTAL HEMOGLOBIN 9.4 g/dL (12.0-18.0); BG TOTAL RESPIRATORY RATE 14 b/min; BG VENT MODE VENT - AC
[2021-03-25] MEDS: ATORVASTATIN CALCIUM 20MG TABLET PO SCH (21:15)
[2021-03-26] VITALS (54 sets, daily range): BP systolic 79–147; BP diastolic 44–104
[2021-03-26] MEDS: IPRATROPIUM/ALBUTEROL 0.5-3(2.5)MG/3ML NEB HHN SCH ×6 (00:16→20:06)
[2021-03-26] MEDS: PIPERACILLIN/TAZOBACTAM 3.375G in DEXT 5% WATER 50ML IV SCH ×4 (01:31→18:53)
[2021-03-26 06:22] LABS: HEMATOCRIT. 29.6 % (36.0-48.0); HEMOGLOBIN. 9.4 g/dL (12.0-16.0); MEAN CORPUSCULAR HEMOGLOBIN 27.9 pg (28.0-32.0); MEAN CORPUSCULAR VOLUME 87.5 fL (81.0-99.0); MEAN PLATELET VOLUME 9.1 fl (7.4-10.4); PLATELET 292 x1000/uL (130-400); RED BLOOD CELL COUNT 3.38 mill/uL (4.2-5.4); RED CELL DISTRIBUTION WIDTH 19.8 % (11.6-14.6)
[2021-03-26 06:25] LABS: CHLORIDE 106 mEq/L (98-107)
[2021-03-26 08:55] LABS: BG CARBOXYHEMOGLOBIN 0.3 % (0.5-1.5); BG DEOXYHEMOGLOBIN 2.3 % (0.0-5.0); BG FRACTION INSPIRED OXYGEN 40; BG HCO3 ACT 29.6 mmol/L (22.0-26.0); BG METHEMOGLOBIN 0.1 % (0.0-1.5); BG OXYGEN SATURATION 97.7 % (92.0-98.5); BG OXYHEMOGLOBIN 97.3 % (94.0-97.0); BG PCO2 38.7 mmHg (35.0-45.0); BG PH 7.501 (7.350-7.450); BG PO2 98.2 mmHg (75.0-100.0); BG SAMPLE SITE RIGHT RADIAL; BG TOTAL HEMOGLOBIN 9.3 g/dL (12.0-18.0); BG VENT MODE VENT - AC
[2021-03-26 09:06] LABS: PLATELET ESTIMATE NORMAL
[2021-03-26] MEDS: ENOXAPARIN 80MG/0.8ML SYR SUBCUT SCH ×2 (09:24→21:23)
[2021-03-26] MEDS: LISINOPRIL 2.5MG TABLET PO SCH (09:25)
[2021-03-26] MEDS: AMIODARONE HCL 200 MG TABLET PO SCH (09:25)
[2021-03-26] MEDS: CARVEDILOL 3.125 MG TABLET PO SCH ×2 (09:25→21:24)
[2021-03-26] MEDS: ASPIRIN 81MG TABLET PO SCH (09:25)
[2021-03-26] MEDS: FUROSEMIDE 20MG/2ML VIAL IVP SCH (09:25)
[2021-03-26] MEDS ORDERED: POTASSIUM CHLORIDE 20MEQ TABLET SR PO NR (11:00)
[2021-03-26] MEDS: VANCOMYCIN 750 MG PREMIX 150 ML IV SCH (11:10)
[2021-03-26] MEDS: ATORVASTATIN CALCIUM 20MG TABLET PO SCH (21:23)
[2021-03-27] VITALS (42 sets, daily range): BP systolic 83–116; BP diastolic 29–75
[2021-03-27] MEDS: IPRATROPIUM/ALBUTEROL 0.5-3(2.5)MG/3ML NEB HHN SCH ×7 (01:27→23:54)
[2021-03-27] MEDS: PIPERACILLIN/TAZOBACTAM 3.375G in DEXT 5% WATER 50ML IV SCH ×4 (02:02→17:53)
[2021-03-27] MEDS: VANCOMYCIN 750 MG PREMIX 150 ML IV SCH (06:05)
[2021-03-27 06:16] LABS: CHLORIDE 107 mEq/L (98-107)
[2021-03-27 06:19] LABS: HEMATOCRIT. 26.2 % (36.0-48.0); HEMOGLOBIN. 8.6 g/dL (12.0-16.0); MEAN CORPUSCULAR HEMOGLOBIN 28.6 pg (28.0-32.0); PLATELET 293 x1000/uL (130-400); RED BLOOD CELL COUNT 3.01 mill/uL (4.2-5.4); RED CELL DISTRIBUTION WIDTH 19.4 % (11.6-14.6)
[2021-03-27 06:23] LABS: PHOSPHORUS 2.9 mg/dL (2.5-4.9)
[2021-03-27 08:41] LABS: BG CARBOXYHEMOGLOBIN 0.1 % (0.5-1.5); BG DEOXYHEMOGLOBIN 2.1 % (0.0-5.0); BG FRACTION INSPIRED OXYGEN 40; BG HCO3 ACT 27.9 mmol/L (22.0-26.0); BG METHEMOGLOBIN 0.3 % (0.0-1.5); BG OXYGEN SATURATION 97.9 % (92.0-98.5); BG OXYHEMOGLOBIN 97.5 % (94.0-97.0); BG PCO2 34.4 mmHg (35.0-45.0); BG PH 7.527 (7.350-7.450); BG PO2 101.2 mmHg (75.0-100.0); BG SAMPLE SITE RIGHT RADIAL; BG TOTAL HEMOGLOBIN 9.5 g/dL (12.0-18.0); BG VENT MODE VENT - AC
[2021-03-27] MEDS: LISINOPRIL 2.5MG TABLET PO SCH (09:00)
[2021-03-27] MEDS: CARVEDILOL 3.125 MG TABLET PO SCH ×2 (09:00→20:04)
[2021-03-27] MEDS: ENOXAPARIN 80MG/0.8ML SYR SUBCUT SCH ×2 (09:12→20:04)
[2021-03-27] MEDS: AMIODARONE HCL 200 MG TABLET PO SCH (09:12)
[2021-03-27] MEDS: FUROSEMIDE 40MG/4ML VIAL IVP SCH (09:12)
[2021-03-27] MEDS: ASPIRIN 81MG TABLET PO SCH (09:12)
[2021-03-27] MEDS ORDERED: POTASSIUM CHLORIDE INJ 40 MEQ in DEXT 5% WATER 250 ML IV NR (10:00)
[2021-03-27] MEDS: ATORVASTATIN CALCIUM 20MG TABLET PO SCH (20:04)
[2021-03-28] VITALS (46 sets, daily range): BP systolic 84–117; BP diastolic 48–71
[2021-03-28] MEDS: VANCOMYCIN 750 MG PREMIX 150 ML IV SCH ×2 (00:09→18:07)
[2021-03-28] MEDS: PIPERACILLIN/TAZOBACTAM 3.375G in DEXT 5% WATER 50ML IV SCH ×5 (00:09→23:45)
[2021-03-28] MEDS: IPRATROPIUM/ALBUTEROL 0.5-3(2.5)MG/3ML NEB HHN SCH ×6 (04:12→23:54)
[2021-03-28 05:58] LABS: HEMATOCRIT. 27.7 % (36.0-48.0); MEAN CORPUSCULAR HEMOGLOBIN 28.5 pg (28.0-32.0); MEAN CORPUSCULAR VOLUME 87.2 fL (81.0-99.0); MEAN PLATELET VOLUME 8.7 fl (7.4-10.4); PLATELET 308 x1000/uL (130-400); RED BLOOD CELL COUNT 3.17 mill/uL (4.2-5.4); RED CELL DISTRIBUTION WIDTH 19.2 % (11.6-14.6)
[2021-03-28 06:01] LABS: CHLORIDE 107 mEq/L (98-107)
[2021-03-28 08:01] LABS: BG BASE EXCESS 8.3 mmol/L (-2.0-2.0); BG CARBOXYHEMOGLOBIN 0.3 % (0.5-1.5); BG DEOXYHEMOGLOBIN 1.7 % (0.0-5.0); BG FRACTION INSPIRED OXYGEN 40; BG HCO3 ACT 31.9 mmol/L (22.0-26.0); BG METHEMOGLOBIN 0.2 % (0.0-1.5); BG OXYGEN SATURATION 98.3 % (92.0-98.5); BG OXYHEMOGLOBIN 97.8 % (94.0-97.0); BG PEEP (cmH2O) 0 cmH2O; BG PH 7.519 (7.350-7.450); BG PO2 125.4 mmHg (75.0-100.0); BG SAMPLE SITE RIGHT RADIAL; BG TOTAL HEMOGLOBIN 9.5 g/dL (12.0-18.0); BG VENT MODE VENT - AC/VC
[2021-03-28] MEDS: AMIODARONE HCL 200 MG TABLET PO SCH (08:52)
[2021-03-28] MEDS: ASPIRIN 81MG TABLET PO SCH (08:52)
[2021-03-28] MEDS: ENOXAPARIN 80MG/0.8ML SYR SUBCUT SCH ×2 (08:52→21:08)
[2021-03-28] MEDS: CARVEDILOL 3.125 MG TABLET PO SCH ×2 (08:53→21:00)
[2021-03-28] MEDS: FUROSEMIDE 40MG/4ML VIAL IVP SCH (08:53)
[2021-03-28] MEDS: LISINOPRIL 2.5MG TABLET PO SCH (08:54)
[2021-03-28] MEDS ORDERED: PHENYLEPHRINE 100 MG in DEXT 5% WATER 240 ML IV PRN (10:15)
[2021-03-28] MEDS ORDERED: POTASSIUM CHLORIDE INJ 40 MEQ in DEXT 5% WATER 250 ML IV NR (11:00)
[2021-03-28 16:13] LABS: PLATELET ESTIMATE NORMAL
[2021-03-28 17:05] LABS: PLATELET ESTIMATE NORMAL
[2021-03-28] MEDS: ATORVASTATIN CALCIUM 20MG TABLET PO SCH (21:08)
[2021-03-29] VITALS (72 sets, daily range): BP systolic 75–124; BP diastolic 44–68
[2021-03-29] MEDS: IPRATROPIUM/ALBUTEROL 0.5-3(2.5)MG/3ML NEB HHN SCH ×5 (04:21→20:41)
[2021-03-29] MEDS: PIPERACILLIN/TAZOBACTAM 3.375G in DEXT 5% WATER 50ML IV SCH ×3 (05:49→17:23)
[2021-03-29 06:00] LABS: HEMOGLOBIN. 9.2 g/dL (12.0-16.0); MEAN CORPUSCULAR HEMOGLOBIN 28.1 pg (28.0-32.0); MEAN PLATELET VOLUME 8.7 fl (7.4-10.4); PLATELET 341 x1000/uL (130-400); RED BLOOD CELL COUNT 3.26 mill/uL (4.2-5.4); RED CELL DISTRIBUTION WIDTH 19.6 % (11.6-14.6)
[2021-03-29 06:12] LABS: CHLORIDE 108 mEq/L (98-107)
[2021-03-29] MEDS: CARVEDILOL 3.125 MG TABLET PO SCH ×2 (08:29→21:35)
[2021-03-29] MEDS: FUROSEMIDE 40MG/4ML VIAL IVP SCH (08:29)
[2021-03-29] MEDS: ASPIRIN 81MG TABLET PO SCH (08:29)
[2021-03-29] MEDS: AMIODARONE HCL 200 MG TABLET PO SCH (08:29)
[2021-03-29] MEDS: ENOXAPARIN 80MG/0.8ML SYR SUBCUT SCH ×2 (08:29→21:36)
[2021-03-29] MEDS: LISINOPRIL 2.5MG TABLET PO SCH (08:30)
[2021-03-29 08:38] LABS: BG CARBOXYHEMOGLOBIN 0.1 % (0.5-1.5); BG DEOXYHEMOGLOBIN 0.9 % (0.0-5.0); BG FRACTION INSPIRED OXYGEN 40; BG HCO3 ACT 30.6 mmol/L (22.0-26.0); BG METHEMOGLOBIN 0.3 % (0.0-1.5); BG OXYGEN SATURATION 99.1 % (92.0-98.5); BG OXYHEMOGLOBIN 98.7 % (94.0-97.0); BG PCO2 39.4 mmHg (35.0-45.0); BG PEEP (cmH2O) 0 cmH2O; BG PH 7.508 (7.350-7.450); BG PO2 147.6 mmHg (75.0-100.0); BG SAMPLE SITE RIGHT RADIAL; BG TOTAL HEMOGLOBIN 9.1 g/dL (12.0-18.0); BG VENT MODE VENT - AC/VC
[2021-03-29] MEDS ORDERED: POTASSIUM CHLORIDE 20MEQ TABLET SR PO SCH (09:00)
[2021-03-29] MEDS: VANCOMYCIN 750 MG PREMIX 150 ML IV SCH (12:53)
[2021-03-29 15:09] LABS: PLATELET ESTIMATE NORMAL
[2021-03-29] MEDS: ATORVASTATIN CALCIUM 20MG TABLET PO SCH (21:36)
[2021-03-30] VITALS (89 sets, daily range): BP systolic 102–152; BP diastolic 52–112
[2021-03-30] MEDS: PIPERACILLIN/TAZOBACTAM 3.375G in DEXT 5% WATER 50ML IV SCH ×3 (00:11→13:31)
[2021-03-30] MEDS: IPRATROPIUM/ALBUTEROL 0.5-3(2.5)MG/3ML NEB HHN SCH ×5 (00:44→15:47)
[2021-03-30 05:33] LABS: BASOPHILS % 0.5 % (0.0-2.0); EOSINOPHILS % 9.1 % (0.0-5.0); HEMATOCRIT. 29.6 % (36.0-48.0); HEMOGLOBIN. 9.5 g/dL (12.0-16.0); LYMPHOCYTES % 7.3 % (20.0-50.0); MEAN CORPUSCULAR HEMOGLOBIN 28.3 pg (28.0-32.0); MEAN CORPUSCULAR VOLUME 87.6 fL (81.0-99.0); MEAN PLATELET VOLUME 8.3 fl (7.4-10.4); MONOCYTES % 10.6 % (2.0-8.0); NEUTROPHILS % 72.5 % (40.0-76.0); PLATELET 386 x1000/uL (130-400); RED BLOOD CELL COUNT 3.37 mill/uL (4.2-5.4); RED CELL DISTRIBUTION WIDTH 19.4 % (11.6-14.6)
[2021-03-30 05:44] LABS: CHLORIDE 107 mEq/L (98-107)
[2021-03-30] MEDS: VANCOMYCIN 750 MG PREMIX 150 ML IV SCH (06:16)
[2021-03-30] MEDS: FUROSEMIDE 40MG/4ML VIAL IVP SCH (08:30)
[2021-03-30] MEDS: ENOXAPARIN 80MG/0.8ML SYR SUBCUT SCH (08:30)
[2021-03-30] MEDS: ASPIRIN 81MG TABLET PO SCH (08:30)
[2021-03-30] MEDS: CARVEDILOL 3.125 MG TABLET PO SCH (08:31)
[2021-03-30] MEDS: AMIODARONE HCL 200 MG TABLET PO SCH (08:31)
[2021-03-30] MEDS: LISINOPRIL 2.5MG TABLET PO SCH (08:31)
[2021-03-30 08:49] LABS: BG BASE EXCESS 9.7 mmol/L (-2.0-2.0); BG CARBOXYHEMOGLOBIN 0.4 % (0.5-1.5); BG DEOXYHEMOGLOBIN 3.6 % (0.0-5.0); BG FRACTION INSPIRED OXYGEN 30; BG HCO3 ACT 33.6 mmol/L (22.0-26.0); BG METHEMOGLOBIN 0.4 % (0.0-1.5); BG OXYGEN SATURATION 96.4 % (92.0-98.5); BG OXYHEMOGLOBIN 95.6 % (94.0-97.0); BG PCO2 42.6 mmHg (35.0-45.0); BG PH 7.515 (7.350-7.450); BG PO2 83.6 mmHg (75.0-100.0); BG SAMPLE SITE RIGHT RADIAL; BG TOTAL HEMOGLOBIN 10.6 g/dL (12.0-18.0); BG VENT MODE VENT - AC
[2021-03-30] MEDS ORDERED: POTASSIUM CHLORIDE 20MEQ TABLET SR PO SCH (09:30)
[2021-03-30] MEDS: MORPHINE SULFATE 250 MG in DEXT 5% WATER 225 ML IV PRN (16:14)
[2021-03-31] VITALS (74 sets, daily range): BP systolic 99–128; BP diastolic 49–75
[2021-03-31 06:26] LABS: HEMATOCRIT. 31.3 % (36.0-48.0); MEAN CORPUSCULAR HEMOGLOBIN 28.2 pg (28.0-32.0); MEAN CORPUSCULAR VOLUME 88.2 fL (81.0-99.0); PLATELET 503 x1000/uL (130-400); RED BLOOD CELL COUNT 3.55 mill/uL (4.2-5.4); RED CELL DISTRIBUTION WIDTH 19.6 % (11.6-14.6)
[2021-03-31 06:33] LABS: CHLORIDE 108 mEq/L (98-107)
[2021-03-31 10:36] LABS: PLATELET ESTIMATE SLIGHTLY INCREASED
[2021-03-31] MEDS: MORPHINE SULFATE 250 MG in DEXT 5% WATER 225 ML IV PRN (21:44)
[2021-04-01] VITALS: BP 88/67
[2021-04-01 04:00] VITALS: BP 112/57
[2021-04-01 08:00] VITALS: BP 130/70
[2021-04-01 12:00] VITALS: BP 106/59
[2021-04-01 16:00] VITALS: BP 81/54
[2021-04-01 20:00] VITALS: BP 79/44
[2021-04-02] VITALS: BP 82/46
[2021-04-02] MEDS: MORPHINE SULFATE 250 MG in DEXT 5% WATER 225 ML IV PRN (01:50)
[2021-04-02 04:00] VITALS: BP 69/40
[2021-04-02 08:00] VITALS: BP 67/37
[2021-04-02 12:00] VITALS: BP 72/31
== END 2021-04-02 15:14 | DRG 207 ==
LOC: CVICU 18:36 → 6EST 03-31 18:28
PROVIDERS: ADMIT Internal Medicine; ATTEND Internal Medicine
PROC: 5A1955Z Respiratory Ventilation, Greater than 96 Consecutive Hours (ICD-10-PCS; principal; 2021-03-20)
PROC: 5A12012 Performance of Cardiac Output, Single, Manual (ICD-10-PCS; 2021-03-20)
PROC: 0BH17EZ Insertion of Endotracheal Airway into Trachea, Via Natural or Artificial Opening (ICD-10-PCS; 2021-03-20)
PROC: 4A10X4Z Monitoring of Central Nervous Electrical Activity, External Approach (ICD-10-PCS; 2021-03-21)
DX: J96.22 Acute and chronic respiratory failure with hypercapnia (principal); I50.33 Acute on chronic diastolic (congestive) heart failure; J44.1 Chronic obstructive pulmonary disease with (acute) exacerbation; G93.40 Encephalopathy, unspecified; E66.2 Morbid (severe) obesity with alveolar hypoventilation; I47.2 Ventricular tachycardia; D68.69 Other thrombophilia; E87.4 Mixed disorder of acid-base balance; I48.20 Chronic atrial fibrillation, unspecified; I11.0 Hypertensive heart disease with heart failure; Z51.5 Encounter for palliative care; Z66 Do not resuscitate; I46.9 Cardiac arrest, cause unspecified; I25.5 Ischemic cardiomyopathy; I25.10 Atherosclerotic heart disease of native coronary artery without angina pectoris; E78.5 Hyperlipidemia, unspecified; D64.9 Anemia, unspecified; M10.9 Gout, unspecified; M19.90 Unspecified osteoarthritis, unspecified site; E11.9 Type 2 diabetes mellitus without complications; I35.0 Nonrheumatic aortic (valve) stenosis; I34.0 Nonrheumatic mitral (valve) insufficiency; I36.1 Nonrheumatic tricuspid (valve) insufficiency; I27.21 Secondary pulmonary arterial hypertension; E87.6 Hypokalemia; Z95.5 Presence of coronary angioplasty implant and graft; Z91.19 Patient's noncompliance with other medical treatment and regimen; Z95.810 Presence of automatic (implantable) cardiac defibrillator; Z95.1 Presence of aortocoronary bypass graft; Z99.81 Dependence on supplemental oxygen; Z79.01 Long term (current) use of anticoagulants; Z79.02 Long term (current) use of antithrombotics/antiplatelets; Z79.899 Other long term (current) drug therapy
CPT/HCPCS: 36415; 36600; 71045; 71275; 80048; 80053; 80202; 81003; 82375; 82805; 83605; 83735; 83880; 84100; 84132; 85025; 85379; 87070; 87077; 87186; 93005; 94002; 94003; 94640; J1120; J1650; J1940; J2250; J2270; J2543; J3010; J3370; J3480; J3490; J7050; J7060; Q9967